=== PATIENT | male | born 1965 | race Caucasian/White ===

== ENCOUNTER 2016-08-25 20:12 | Emergency (ER) | payer MEDICARE ==
[2016-08-25] MEDS ORDERED: SODIUM CHLORIDE 0.9% 1,000 ML IV ONE (21:22)
[2016-08-25] MEDS ORDERED: ONDANSETRON 4 MG/2 ML VIAL IVP STA ×2 (21:22→22:33)
[2016-08-25] MEDS ORDERED: HYDROmorphone 1 MG/ML 1 ML SYRINGE IVP STA (21:22)
--- NOTE | 2016-08-25 21:26 | ED ---
Abdominal Pain HPI - General Chief Complaint: Abdominal Pain Stated Complaint: Abd Pain Time Seen by Provider: 08/25/16 20:40 Source: patient, RN notes reviewed Mode of arrival: ambulatory Limitations: no limitations - History of Present Illness Initial Comments: Patient is a 50-year-old male since emergency room for evaluation of abdominal pain, nausea and vomiting. 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 Patient states that he had a partial colon resection about 2 years ago. Patient states ever since he started having issues with bowel obstructions. Patient states since Monday she began with nausea vomiting and right upper quadrant pain. Patient states the pain is not subsiding. Patient states he can't keep any food down. Patient denies fevers or chills. Patient denies any other abdominal surgeries in the past. Patient denies chest pain, shortness of breath, headache, dizziness, pain or burning during urination, trouble urinating or blood in urine. Patient denies taking any medications. - Related Data Previous Rx's Medication Instructions Recorded HYDROcodone/APAP 5-325MG [Sorento 1 tab PO Q6HR PRN #10 tab 08/26/16 5-325] Ondansetron Odt [Zofran Odt] 4 mg PO Q8HR PRN #12 tab 08/26/16 Allergies Allergy/AdvReac Type Severity Reaction Status Date / Time No Known Allergies Allergy Verified 08/25/16 20:37 Review of Systems ROS Statement: Those systems with pertinent positive or pertinent negative responses have been documented in the HPI. ROS Other: All systems not noted in ROS Statement are negative. Past Medical History Past Medical History: Renal Disease Additional Past Medical History / Comment(s): "TWISTED BOWEL" History of Any Multi-Drug Resistant Organisms: None Reported Past Surgical History: Bowel Resection, Hernia Repair Additional Past Surgical History / Comment(s): Volvulus Past Anesthesia/Blood Transfusion Reactions: No Reported Reaction Past Psychological History: No Psychological Hx Reported Smoking Status: Current every day smoker Past Alcohol Use History: None Reported Past Drug Use History: Marijuana - Past Family History Mother Family Medical History: Hypertension General Exam - General Exam Comments Initial Comments: Laying in exam room, no acute distress. Limitations: no limitations General appearance: alert, in no apparent distress Head exam: Present: atraumatic, normocephalic, normal inspection Eye exam: Present: normal appearance ENT exam: Present: normal exam Neck exam: Present: normal inspection Respiratory exam: Present: normal lung sounds bilaterally. Absent: respiratory distress Cardiovascular Exam: Present: regular rate, normal rhythm, normal heart sounds GI/Abdominal exam: Present: soft, tenderness (Right lower quadrant), normal bowel sounds. Absent: distended, guarding, rebound, rigid Extremities exam: Present: normal inspection Back exam: Present: normal inspection Neurological exam: Present: alert, oriented X3, CN II-XII intact, normal gait Psychiatric exam: Present: normal affect, normal mood Skin exam: Present: warm, dry, intact, normal color. Absent: rash Course Vital Signs 08/25/16 08/25/16 08/26/16 20:26 22:53 00:33 Temperature 98.3 F 98.0 F 98.1 F Pulse Rate 90 76 88 Respiratory 20 18 18 Rate Blood Pressure 121/88 143/76 116/62 O2 Sat by Pulse 99 98 100 Oximetry Medical Decision Making - Medical Decision Making Patient is a 50-year-old male presents to the emergency room for evaluation of abdominal pain, nausea and vomiting. Labs showed no significant findings. Abdomen and pelvis CT shows no concerning findings. No bowel obstructions noted. Patient states he is feeling better after medications given. Agreed to send patient home with medications for pain and medications for nausea. Advised patient to follow-up with his GI specialist or a general surgeon for further evaluation. Patient states he understands everything that was discussed with him. Return parameters discussed. Case discussed with Dr. Lee. - Lab Data Result diagrams: 08/25/16 21:48 08/25/16 21:48 Lab Results 08/25/16 08/25/16 Range/Units 21:48 21:48 WBC 13.0 H (3.8-10.6) k/uL RBC 5.41 (4.30-5.90) m/uL Hgb 17.5 (13.0-17.5) gm/dL Hct 49.6 (39.0-53.0) % MCV 91.6 (80.0-100.0) fL MCH 32.4 (25.0-35.0) pg MCHC 35.3 (31.0-37.0) g/dL RDW 12.3 (11.5-15.5) % Plt Count 245 (150-450) k/uL Neutrophils % 73 % Lymphocytes % 17 % Monocytes % 8 % Eosinophils % 1 % Basophils % 1 % Neutrophils # 9.5 H (1.3-7.7) k/uL Lymphocytes # 2.2 (1.0-4.8) k/uL Monocytes # 1.0 (0-1.0) k/uL Eosinophils # 0.1 (0-0.7) k/uL Basophils # 0.1 (0-0.2) k/uL Sodium 138 (137-145) mmol/L Potassium 3.5 (3.5-5.1) mmol/L Chloride 96 L (98-107) mmol/L Carbon Dioxide 25 (22-30) mmol/L Anion Gap 17 mmol/L BUN 18 (9-20) mg/dL Creatinine 0.70 (0.66-1.25) mg/dL Est GFR (MDRD) Af Amer >60 (>60 ml/min/1.73 sqM) Est GFR (MDRD) Non-Af >60 (>60 ml/min/1.73 sqM) Glucose 116 H (74-99) mg/dL Calcium 9.8 (8.4-10.2) mg/dL Total Bilirubin 1.0 (0.2-1.3) mg/dL AST 21 (17-59) U/L ALT 35 (21-72) U/L Alkaline Phosphatase 62 (38-126) U/L Total Protein 8.1 (6.3-8.2) g/dL Albumin 5.0 (3.5-5.0) g/dL Amylase 70 (30-110) U/L Lipase 46 (23-300) U/L - Radiology Data Radiology results: report reviewed, image reviewed Disposition Clinical Impression: Abdominal pain, Nausea and vomiting Disposition: HOME SELF-CARE Condition: Good Instructions: Abdominal Pain (ED), Acute Nausea and Vomiting (ED) Additional Instructions: Take medications as needed. Please follow up with GI specialist in 24-48 hours. If any new symptom arises, symptoms worsen or fever develops, return to ER as soon as possible. Prescriptions: HYDROcodone/APAP 5-325MG [Sorento 5-325] 1 tab PO Q6HR PRN #10 tab PRN Reason: Pain Ondansetron Odt [Zofran Odt] 4 mg PO Q8HR PRN #12 tab PRN Reason: Nausea Referrals: Scar,Jamal, DO [Primary Care Provider] - 1-2 days Nancy Ingram MD [STAFF PHYSICIAN] - 1-2 days Time of Disposition: 00:18
[2016-08-25 21:58] LABS: Basophils # (A) 0.1 k/uL (0-0.2); Basophils % (A) 1 %; CHCM 36.2; Eosinophils # (A) 0.1 k/uL (0-0.7); Eosinophils % (A) 1 %; HCT 49.6 % (39.0-53.0); HDW 2.43; HGB 17.5 gm/dL (13.0-17.5); Luc # (Auto) 0.18; Luc % (Auto) 1; Lymphocytes # (A) 2.2 k/uL (1.0-4.8); Lymphocytes % (A) 17 %; MCH 32.4 pg (25.0-35.0); MCHC 35.3 g/dL (31.0-37.0); MCV 91.6 fL (80.0-100.0); Mean Platelet Volume 7.3; Monocytes % (A) 8 %; Neutrophils # (A) 9.5 k/uL (1.3-7.7); Neutrophils % (A) 73 %; RBC 5.41 m/uL (4.30-5.90); RDW 12.3 % (11.5-15.5); WBC (Perox) 12.21
[2016-08-25 22:08] LABS: ALT 35 U/L (21-72); AST 21 U/L (17-59); Alkaline Phosphatase 62 U/L (38-126); Amylase 70 U/L (30-110); Anion Gap 17 mmol/L; Blood Urea Nitrogen 18 mg/dL (9-20); Calcium 9.8 mg/dL (8.4-10.2); Carbon Dioxide 25 mmol/L (22-30); Chloride 96 mmol/L (98-107); Glucose 116 mg/dL (74-99); Non-African American GFR(MDRD) >60 (>60 ml/min/1.73 sqM); Potassium 3.5 mmol/L (3.5-5.1); Sodium 138 mmol/L (137-145); Total Protein 8.1 g/dL (6.3-8.2)
--- NOTE | 2016-08-25 22:13 | XR ---
EXAMINATION TYPE: XR KUB DATE OF EXAM: 08/25/2016 9:58 PM COMPARISON: November 28, 2014 HISTORY: Pain and nausea and vomiting TECHNIQUE: 2 upright views FINDINGS: There is mild gaseous distention of the colon, with scattered stool seen within. The bowel gas pattern is within normal limits. No pneumatosis. No pneumoperitoneum. Soft tissues and skeletal structures are negative for acute findings, and the visualized lung bases a nd pleural spaces are negative. IMPRESSION: No acute process.
[2016-08-25 22:54] VITALS: RESP 18
[2016-08-25] MEDS ORDERED: RX INFO: IV CONTRAST WAS GIVEN 1 EACH MISC MISCELLANE PRN (22:54)
--- NOTE | 2016-08-25 23:20 | CT ---
EXAMINATION TYPE: CT abdomen pelvis w con DATE OF EXAM: 08/25/2016 11:13 PM COMPARISON: 04/30/2014 HISTORY: abd pain, vomiting CT DLP: 310.40 mGycm Automated exposure control for dose reduction was used. TECHNIQUE: Helical acquisition of images was performed from the lung bases through the pelvis. CONTRAST: Performed without Oral Contrast and with IV Contrast, patient injected with 100 mL of Omnipaque 300. FINDINGS: Lung bases are clear. There is no pleural effusion. Heart size is normal. Liver spleen pancreas gallb ladder appear normal. Bile ducts are not dilated. There is a 2 cm cyst on the upper pole left kidney. There is no adrenal mass. Kidneys show no hydronephrosis. There is no retroperitoneal adenopathy. Th ere is no ascites. Bladder distends smoothly. I see no intestinal wall thickening. There are no dilat ed loops. Appendix is not seen. There is no sign of appendicitis. Bony structures are intact. There a re spondylotic changes in the lumbar spine. IMPRESSION: LEFT RENAL CORTICAL CYST. NO SIGN OF ACUTE ABDOMEN AND PELVIS. MINIMAL ATHEROSCLEROTIC VASCULAR DISEA SE. NO ADVERSE CHANGE COMPARED TO OLD EXAM.
[2016-08-26] MEDS ORDERED: ONDANSETRON 4 MG/2 ML VIAL IVP STA (00:17)
[2016-08-26 00:35] VITALS: BP 116/62; PULSE 88; TEMP 98.1
== END 2016-08-26 00:34 | disposition home or self-care (01) ==
LOC: EC 20:12
DX: R10.9 Unspecified abdominal pain (principal); R11.2 Nausea with vomiting, unspecified; N28.1 Cyst of kidney, acquired; F17.200 Nicotine dependence, unspecified, uncomplicated
CPT/HCPCS: 99284; 96374; 96376; 96375; 96361; 36415; 80053; 82150; 83690; 85025; 74000; 74177; J2405 ×2; J1170; Q9967

== ENCOUNTER 2016-11-29 19:03 | Emergency (ER) | payer MEDICARE ==
[2016-11-29] MEDS ORDERED: TOBRAMYCIN 0.3% OPHTH DROPS 5 ML BTL LEFT EYE STA (19:18)
[2016-11-29] MEDS ORDERED: HYDROmorphone 1 MG/ML 1 ML SYRINGE IVP STA ×4 (19:19→22:21)
[2016-11-29] MEDS ORDERED: PROPARACAINE 0.5% OPHTH DROPS 15 ML BTL LEFT EYE STA (19:19)
[2016-11-29] MEDS ORDERED: ONDANSETRON 4 MG/2 ML VIAL IVP STA (19:19)
[2016-11-29] MEDS ORDERED: SODIUM CHLORIDE 0.9% 1,000 ML IV ONE (19:20)
[2016-11-29] MEDS ORDERED: PROPARACAINE 0.5% OPHTH DROPS 15 ML BTL ONE (19:20)
[2016-11-29] MEDS: SODIUM CHLORIDE 0.9% 1,000 ML IV SCH ×2 (19:32→20:06)
--- NOTE | 2016-11-29 21:09 | CT ---
EXAMINATION TYPE: CT orbits wo con DATE OF EXAM: 11/29/2016 8:51 PM COMPARISON: NONE HISTORY: LEFT EYE SWELLING AND HEMATOMA AFTER INJURY. CT DLP: 480.8 mGycm Automated exposure control for dose reduction was used. FINDINGS: CT scan of facial bones shows mild to moderate preseptal soft tissue swelling and hematoma on the lef t. Superior extension supraorbital level is present. Some foci of air are noted. The globes are intac t bilaterally. Intraconal fat is maintained bilaterally. Orbital floors and wolf are intact bilatera lly. The zygomatic arches are intact. Visualized portion of mandible is intact. Visualized paranasal sinus es are clear. IMPRESSION: SMALL TO MODERATE SIZE LEFT PRESEPTAL SOFT TISSUE SWELLING AND HEMATOMA. NO POSTSEPTAL HEMATOMA IDENT IFIED. NO ACUTE OSSEOUS FRACTURE OR DISLOCATION SEEN.
[2016-11-29] MEDS ORDERED: TOBRAMYCIN 0.3% OPHTH OINT 3.5 GM TUBE ONE (22:24)
[2016-11-29] MEDS ORDERED: TOBRAMYCIN 0.3% OPHTH OINT 3.5 GM TUBE LEFT EYE STA (22:29)
--- NOTE | 2016-11-29 22:29 | ED ---
Eye Problem HPI - General Chief complaint: Eye Problems Stated complaint: Eye Injury Time Seen by Provider: 11/29/16 19:18 Source: patient Mode of arrival: wheelchair Limitations: no limitations - History of Present Illness Initial comments: This 51-year-old white male presents complaining of a left facial injury. He states that he was utilizing a grinding wheel when the wheel came off and cut himself in the left face. This caused a laceration to his left cheek and his left eyebrow and affected his vision to his left eye. This occurred just prior to arrival. He does complain of significant pain. He states that he can only see the superior vision. His last tetanus was within the last several years but definitely within 5 years. He denies any other injuries or complaints or modifying factors. - Related Data Previous Rx's Medication Instructions Recorded Cephalexin [Keflex] 500 mg PO Q6HR #20 cap 11/29/16 oxyCODONE HCL/ACETAMINOPHEN 1 - 2 tab PO Q6HR PRN #20 tab 11/29/16 [Percocet 5-325 mg] Allergies Allergy/AdvReac Type Severity Reaction Status Date / Time No Known Allergies Allergy Verified 11/29/16 19:45 Review of Systems ROS Statement: Those systems with pertinent positive or pertinent negative responses have been documented in the HPI. ROS Other: All systems not noted in ROS Statement are negative. Past Medical History Past Medical History: Renal Disease Additional Past Medical History / Comment(s): "TWISTED BOWEL" History of Any Multi-Drug Resistant Organisms: None Reported Past Surgical History: Bowel Resection, Hernia Repair Additional Past Surgical History / Comment(s): Volvulus Past Anesthesia/Blood Transfusion Reactions: No Reported Reaction Past Psychological History: No Psychological Hx Reported Smoking Status: Current every day smoker Past Alcohol Use History: None Reported Past Drug Use History: Marijuana - Past Family History Mother Family Medical History: Hypertension General Exam Limitations: no limitations General appearance: alert, in distress Eye exam: Present: PERRL, EOMI, conjunctival injection, periorbital swelling, periorbital tenderness, other (The cornea is clear bilaterally with no evidence of hyphema. There is a large corneal abrasion noted on the left eye which is directly over the pupil in the inferior lateral portion. There is a laceration directly underneath the left I measuring approximately 1 cm. There is a 0.5 cm laceration into the left eyelid. There is no fat protrusion from either area. There is a 1.5 cm laceration present to the left eyebrow. There is a 2 cm laceration into the left cheek. There is a moderate inferolateral subconjunctival hemorrhage noted to the left eye.) Pupils: Present: other (The pupils are equal bilaterally.) ENT exam: Present: other (There is some tenderness noted to the left cheek and periorbital region with some moderate swelling and ecchymosis.) Neurological exam: Present: alert, oriented X3 Psychiatric exam: Present: normal affect, normal mood Course Vital Signs 11/29/16 11/29/16 11/29/16 19:04 21:27 21:49 Temperature 97.0 F L Pulse Rate 80 73 76 Respiratory 16 18 16 Rate Blood Pressure 143/78 198/95 181/86 O2 Sat by Pulse 97 97 96 Oximetry Medical Decision Making - Medical Decision Making The patient was seen and examined. All diagnostics were reviewed. He was complaining of pain and requesting pain medications. He receives 1 mg of Dilaudid. He immediately asked for additional pain medications. He received another 0.5 mg later another 0.5 mg. He continues to request pain medications and later receives another milligram. He does relate that he's had significant bowel issues as well as chronic back pain. He was on morphine as well as Percocet up until approximately 6 months ago and has built up a high tolerance. He does have a computed tomography scan of his orbits. No fractures are identified. There is some where her orbital swelling. There is no wounds deep into the eye. The patient did receive some Alcaine present to his left eye and was evaluated with the Wood's lamp and there does not appear to be any evidence of hyphema. There is associated lacerations as well as a significant corneal abrasion and a slight some conjunctival hemorrhage on the left side. His left face was prepped and draped in usual sterile fashion. His wounds were anesthetized with lidocaine plain. They were explored. Small pebble-like foreign bodies were removed from the cheek and eyebrow wounds. Wounds were thoroughly cleansed once again. The left cheek wound was closed with 7 6-0 nylon sutures in a simple interrupted fashion. The wound just inferior to the left eye was closed with 3 simple interrupted 6-0 nylon sutures. The left eyebrow laceration was closed with 6 simple interrupted 6-0 nylon sutures. The left eyelid laceration was closed with one 6-0 nylon suture. No complications were encountered. He tolerated this well. Tobrex ophthalmic ointment was applied into the eye into the periorbital wounds. Ice was applied to his left face throughout his ER stay. Is felt as though he is stable for discharge but would require close follow-up with the dining room host/hostess. He is agreeable to this plan and leaves in no severe distress once again requesting pain medications for discharge. Disposition Clinical Impression: Complex laceration of face, Left corneal abrasion, Subconjunctival hemorrhage of left eye, Periorbital contusion Disposition: HOME SELF-CARE Condition: Good Additional Instructions: Please follow-up with the eye doctor in the next 1-2 days without fail. Please use the eye ointment to the left eye as well as the wounds around the eye. Prescriptions: Cephalexin [Keflex] 500 mg PO Q6HR #20 cap oxyCODONE HCL/ACETAMINOPHEN [Percocet 5-325 mg] 1 - 2 tab PO Q6HR PRN #20 tab PRN Reason: Pain Referrals: Jamal Abbott DO [Primary Care Provider] - 1-2 days Lois Jensen MD [STAFF PHYSICIAN] - 1-2 days Time of Disposition: 22:35
--- NOTE | 2016-11-29 22:39 | ED ---
Disposition Clinical Impression: Complex laceration of face, Left corneal abrasion, Subconjunctival hemorrhage of left eye, Periorbital contusion Disposition: HOME SELF-CARE Condition: Good Instructions: Corneal Abrasion (ED), Facial Laceration (ED), Subconjunctival Hemorrhage (ED) Additional Instructions: Please follow-up with the eye doctor in the next 1-2 days without fail. Please use the eye ointment to the left eye as well as the wounds around the eye. Please apply ice to year left facial wounds at least every 4 hours. Prescriptions: Cephalexin [Keflex] 500 mg PO Q6HR #20 cap oxyCODONE HCL/ACETAMINOPHEN [Percocet 5-325 mg] 1 - 2 tab PO Q6HR PRN #20 tab PRN Reason: Pain Referrals: Lois Jensen MD [STAFF PHYSICIAN] - 1-2 days Jamal Abbott DO [Primary Care Provider] - 1-2 days
[2016-11-29 23:41] VITALS: BP 160/81; PULSE 70; RESP 18; TEMP 98.6
== END 2016-11-29 23:00 | disposition home or self-care (01) ==
LOC: EC 19:03
DX: S01.112A Laceration without foreign body of left eyelid and periocular area, initial encounter (principal); S01.412A Laceration without foreign body of left cheek and temporomandibular area, initial encounter; H11.32 Conjunctival hemorrhage, left eye; S05.12XA Contusion of eyeball and orbital tissues, left eye, initial encounter; S05.02XA Injury of conjunctiva and corneal abrasion without foreign body, left eye, initial encounter; F17.200 Nicotine dependence, unspecified, uncomplicated; W25.XXXA Contact with sharp glass, initial encounter; Y92.009 Unspecified place in unspecified non-institutional (private) residence as the place of occurrence of the external cause
CPT/HCPCS: 70480; 99283; 12013; 96374; 96375; 96376 ×3; 96361; J2405; J1170

== ENCOUNTER 2017-10-22 15:04 | Inpatient (IN) | payer MEDICARE, MEDICAID ==
--- NOTE | 2017-10-22 15:51 | ED ---
General Adult HPI - General Chief complaint: Psychiatric Symptoms Stated complaint: mental health Time Seen by Provider: 10/22/17 15:08 Source: patient, RN notes reviewed Mode of arrival: ambulatory Limitations: no limitations - History of Present Illness Initial comments: Chief complaint and history of present illness this is a 51-year-old male here for complaint of suicidal thoughts and feeling depressed. For the past 2 months been having difficulties. Including injury to his left eye was surgeries. A car that broke down. Unable to get to [facility] for follow-up. States he is depressed and suicidal thinking about jumping in the river in front of a car. Denies drug use denies alcohol use. Has never been evaluated for psychiatric issues in the past. - Related Data Previous Rx's Medication Instructions Recorded Cephalexin [Keflex] 500 mg PO Q6HR #20 cap 11/29/16 oxyCODONE HCL/ACETAMINOPHEN 1 - 2 tab PO Q6HR PRN #20 tab 11/29/16 [Percocet 5-325 mg] Allergies Allergy/AdvReac Type Severity Reaction Status Date / Time No Known Allergies Allergy Verified 10/22/17 15:07 Review of Systems ROS Statement: Those systems with pertinent positive or pertinent negative responses have been documented in the HPI. Review of systems patient's denying headache he does have visual acuity changes associated with an injury to the left eye. He is undergoing surgeries. He is able to see peripherally with the left eye. No chest pain shortness of breath no abdominal pain nausea vomiting or diarrhea. Emotionally patient reports depressed, suicidal. His plan would be to jump in the river or in front of a car or truck. States he does not want to do that her problems are mounting. All systems reviewed Past medical problem chronic back pain. Denies taking chronic pain medications. Surgeries include colon surgery wrist surgery and left eye secondary to trauma. Family history no cancers. Patient denies ALLERGIES. He does smoke and is encouraged to stop he stopped drinking 25 years ago. ROS Other: All systems not noted in ROS Statement are negative. Past Medical History Past Medical History: Renal Disease Additional Past Medical History / Comment(s): "TWISTED BOWEL" History of Any Multi-Drug Resistant Organisms: None Reported Past Surgical History: Bowel Resection, Hernia Repair Additional Past Surgical History / Comment(s): Volvulus Past Anesthesia/Blood Transfusion Reactions: No Reported Reaction Past Psychological History: Anxiety Smoking Status: Current every day smoker Past Alcohol Use History: None Reported Past Drug Use History: Marijuana - Past Family History Mother Family Medical History: Hypertension General Exam - General Exam Comments Initial Comments: General: The patient is awake and alert, here because he is depressed. Suicidal thoughts and plan to jump in the river to kill himself. Vital signs shows temperature 98.5 pulse 85 respiratory rate 18 pulse ox 99% room air blood pressure 142/72 Eye: Mild anisocoria. The patient had traumatic injury to his left eye within the past several months. He's had 2 surgeries for relocating and replacement of his lens and repair to his retina. He does have peripheral vision. Ears, nose, mouth and throat: There are moist mucous membranes and no oral lesions. Neck: The neck is supple, there is no tenderness Cardiovascular: There is a regular rate and rhythm. No murmur, rub or gallop is appreciated. Respiratory: Lungs are clear to auscultation, respirations are non-labored, breath sounds are equal. No wheezes, stridor, rales, or rhonchi. Gastrointestinal: Soft, non-distended, non-tender abdomen without masses or organomegaly noted. There is no rebound or guarding present. No CVA tenderness. Bowel sounds are unremarkable. Back: There is no tenderness to palpation in the midline. There is no obvious deformity. Chronic back pain Musculoskeletal: Normal ROM, no tenderness, There is no pedal edema. There is no calf tenderness or swelling. Sensation intact. Neurological: CN II-XII intact, There are no obvious motor or sensory deficits. Coordination appears grossly intact. Speech is normal. No neuro deficits Skin: Patient does complain of itchy skin areas worries excoriated himself. Psychiatric: Cooperative, depressed, flat affect, suicidal with plan to jump in the river or jump from a moving vehicle to kill himself. Denies ever overdosing. Limitations: no limitations Course Vital Signs 10/22/17 15:05 Temperature 98.5 F Pulse Rate 85 Respiratory 18 Rate Blood Pressure 142/74 O2 Sat by Pulse 99 Oximetry Medical Decision Making - Medical Decision Making Medical decision making; this is a 51-year-old male with complaint of depression. For the past 2 months getting progressively worse. Suicidal thoughts of jumping in the river or jumping in front of an automobile. Breath alcohol is negative. Lab tests show no evidence of any aspirin or Tylenol in the system. The patient was evaluated by psychiatric nurse she spoke with the psychiatrist and the decision made to admit the patient to [facility]. The patient is voluntarily signing in. With a diagnosis of major depression, suicidal. - Lab Data Lab Results 10/22/17 Range/Units 16:24 Salicylates <1.0 mg/dL Acetaminophen <10.0 ug/mL Disposition Clinical Impression: Major depression, Suicidal ideation Disposition: TRANSFER TO PSYCH HOSP/UNIT Condition: Serious
[2017-10-22 16:55] LABS: Acetaminophen <10.0 ug/mL; Salicylate <1.0 mg/dL
[2017-10-22] MEDS ORDERED: MAG HYDROX/AL HYDROX/SIMETH 30 ML CUP PO PRN (17:27)
[2017-10-22] MEDS ORDERED: MAGNESIUM HYDROXIDE 2,400 MG/10 ML CUP PO PRN (17:27)
[2017-10-22] MEDS ORDERED: ACETAMINOPHEN TAB 325 MG TAB PO PRN (17:27)
[2017-10-22 17:32] LABS: Amphetamine Screen,Urine Not Detected (NotDetected); Barbiturate Screen,Urine Not Detected (NotDetected); Benzodiazepines Screen,Urine Not Detected (NotDetected); Cocaine Screen,Urine Not Detected (NotDetected); Methadone Screen, Urine Not Detected (NotDetected); Opiate Screen,Urine Detected (NotDetected); Oxycodone Screen, Urine Not Detected (NotDetected); Phencyclidine Screen,Urine Not Detected (NotDetected); Tricyclic Antidepressant,Urine Not Detected (NotDetected); Urn Cannabinoid Scrn Detected (NotDetected)
[2017-10-22 17:53] VITALS: RESP 16
[2017-10-22] MEDS: NICOTINE 21MG/24HR PATCH TRANSDERM SCH (18:10)
[2017-10-22] MEDS: traMADol 50 MG TAB PO PRN (18:59)
[2017-10-22] MEDS: LORazepam 0.5 MG TAB PO PRN (18:59)
[2017-10-22] MEDS ORDERED: traZODone HCL 50 MG TAB PO STA ×2 (19:02→20:14)
[2017-10-22] MEDS ORDERED: hydrOXYzine PAMOATE 25 MG CAP PO STA (22:55)
[2017-10-23] MEDS: NICOTINE 21MG/24HR PATCH TRANSDERM SCH (09:07)
[2017-10-23] MEDS: traMADol 50 MG TAB PO PRN ×2 (09:08→20:26)
[2017-10-23] MEDS: LORazepam 0.5 MG TAB PO PRN ×2 (09:08→23:08)
[2017-10-23] MEDS: GABAPENTIN 100 MG CAP PO SCH ×3 (09:22→21:22)
[2017-10-23] MEDS: ESCITALOPRAM 10 MG TAB PO SCH (09:22)
[2017-10-23 11:31] LABS: Basophils % (A) 0 %; Eosinophils # (A) 0.1 k/uL (0-0.7); Eosinophils % (A) 2 %; HCT 46.1 % (39.0-53.0); HGB 15.6 gm/dL (13.0-17.5); Lymphocytes # (A) 2.1 k/uL (1.0-4.8); Lymphocytes % (A) 33 %; MCH 31.1 pg (25.0-35.0); MCHC 33.9 g/dL (31.0-37.0); MCV 91.8 fL (80.0-100.0); Monocytes # (A) 0.4 k/uL (0-1.0); Monocytes % (A) 6 %; Neutrophils # (A) 3.7 k/uL (1.3-7.7); Neutrophils % (A) 57 %; Platelet Count 219 k/uL (150-450); RBC 5.02 m/uL (4.30-5.90); RDW 13.1 % (11.5-15.5); WBC 6.4 k/uL (3.8-10.6)
[2017-10-23 11:49] LABS: ALT 27 U/L (21-72); AST 19 U/L (17-59); Albumin 4.1 g/dL (3.5-5.0); Alkaline Phosphatase 70 U/L (38-126); Anion Gap 11 mmol/L; Blood Urea Nitrogen 12 mg/dL (9-20); Calcium 9.2 mg/dL (8.4-10.2); Carbon Dioxide 24 mmol/L (22-30); Chloride 105 mmol/L (98-107); Glucose 92 mg/dL (74-99); Potassium 4.1 mmol/L (3.5-5.1); Sodium 140 mmol/L (137-145); Total Bilirubin 0.4 mg/dL (0.2-1.3); Total Protein 6.8 g/dL (6.3-8.2)
--- NOTE | 2017-10-23 12:46 | P.HP ---
Psychiatric H&P - . H&P Date: 10/23/17 History & Physical: Allergies Allergy/AdvReac Type Severity Reaction Status Date / Time No Known Allergies Allergy Verified 10/22/17 17:46 Vital Signs Temp 98.2 F 10/23/17 01:09 Pulse 66 10/23/17 01:09 Resp 16 10/23/17 01:09 BP 128/74 10/23/17 01:09 Pulse Ox 98 10/22/17 17:51 Intake & Output 10/22/17 10/23/17 10/23/17 18:59 06:59 18:59 Weight 58.513 kg Laboratory Last Values WBC 6.4 k/uL (3.8-10.6) 10/23/17 11:06 RBC 5.02 m/uL (4.30-5.90) 10/23/17 11:06 Hgb 15.6 gm/dL (13.0-17.5) 10/23/17 11:06 Hct 46.1 % (39.0-53.0) 10/23/17 11:06 MCV 91.8 fL (80.0-100.0) 10/23/17 11:06 MCH 31.1 pg (25.0-35.0) 10/23/17 11:06 MCHC 33.9 g/dL (31.0-37.0) 10/23/17 11:06 RDW 13.1 % (11.5-15.5) 10/23/17 11:06 Plt Count 219 k/uL (150-450) 10/23/17 11:06 Neutrophils % 57 % 10/23/17 11:06 Lymphocytes % 33 % 10/23/17 11:06 Monocytes % 6 % 10/23/17 11:06 Eosinophils % 2 % 10/23/17 11:06 Basophils % 0 % 10/23/17 11:06 Neutrophils # 3.7 k/uL (1.3-7.7) 10/23/17 11:06 Lymphocytes # 2.1 k/uL (1.0-4.8) 10/23/17 11:06 Monocytes # 0.4 k/uL (0-1.0) 10/23/17 11:06 Eosinophils # 0.1 k/uL (0-0.7) 10/23/17 11:06 Basophils # 0.0 k/uL (0-0.2) 10/23/17 11:06 Salicylates <1.0 mg/dL 10/22/17 16:24 Urine Opiates Screen Detected (NotDetected) H 10/22/17 17:11 Ur Oxycodone Screen Not Detected (NotDetected) 10/22/17 17:11 Urine Methadone Screen Not Detected (NotDetected) 10/22/17 17:11 Ur Propoxyphene Screen Not Detected (NotDetected) 10/22/17 17:11 Acetaminophen <10.0 ug/mL 10/22/17 16:24 Ur Barbiturates Screen Not Detected (NotDetected) 10/22/17 17:11 U Tricyclic Antidepress Not Detected (NotDetected) 10/22/17 17:11 Ur Phencyclidine Scrn Not Detected (NotDetected) 10/22/17 17:11 Ur Amphetamines Screen Not Detected (NotDetected) 10/22/17 17:11 U Methamphetamines Scrn Detected (NotDetected) H 10/22/17 17:11 U Benzodiazepines Scrn Not Detected (NotDetected) 10/22/17 17:11 Urine Cocaine Screen Not Detected (NotDetected) 10/22/17 17:11 U Marijuana (THC) Screen Detected (NotDetected) H 10/22/17 17:11 10/23/17 12:15 Identification: Patient is a 51-year-old male who presented to the emergency room with suicidal ideation, states he had no plan was feeling tired and fed up. History of Present Illness: Patient states that things began to go badly for him beginning last year when he lost his house, and then was in an accident where he was using a grinding wheel which came loose and hit him in the left face. The blade was thin when he states he was wearing safety glasses his reading glasses and he had the safety guard on the machine he states that it cut him above his eye across as I am below his eye. Patient since that time has been seen at [facility] in [place]. He states in December of last year after the accident he was seen there initially to remove blood from his eye however when they did the surgery they discovered that his retina had detached and his lens a dislocated and was forced into his eye. At that time they reattached his retina placed gel. In June 2017 he went to have the gel removed as well as the lens removed. In September of this year he had the lens replaced. He states that he has constant throbbing stabbing pain and sore over his eye. He states the light bothers that and his vision is wavy and he has vision only on the left side of that visual field of his left eye the right side is dark. Patient states that the pain has been constant, he states that he was not instructed to wear a patch. Patient states that he also had car difficulty and had difficulty getting to his appointments in [place] he states that his son took his car on 2 occasions one broke down in [place] and he had to go down there and repair it and the last time it broke down in [place]. Patient states he had difficulty finding the car after he walked to [place] and eventually discovered that it been towed by the [facility] police. Patient states that since he lost his house he is living with his daughter and states he feels like he is a burden to everyone because he needs to ask for assistance driving to his appointments, has no place to live. He states that his sleep has been poor over the last year and was given Ativan by his primary care physician with little relief. He states that he has been using tramadol for the pain because he was using opiate pain medication in years past for his back pain. He states that he takes the tramadol on an as-needed basis. Patient states that he is feeling depressed, like a burden to others that he is unable to read or watch television and just sits during the day. He describes himself as having been a very active person in the past and is having great difficulty. States he has not been sleeping feels exhausted and tired and his back pain and eye pain keep him awake as well. He states that he had suicidal thoughts but made no plan. Patient is supported on Social Security disability secondary to his back and bowel surgery for a sigmoid volvulus. The patient states he has never had any suicide attempts in the past, has never felt this way and does not endorse any manic symptoms, psychotic symptoms. He describes feeling anxious and pacing most of the time at home, states that he has never felt this way as well. Past Psychiatric History: patient denies any prior inpatient or outpatient psychiatric care. He denies any prior suicide attempts. Past Medical/Surgical History: patient has chronic back pain he states he has several herniated disks, he is status post bowel resection for sigmoid volvulus states he has episodes where he becomes constipated and was in the past coming to the hospital during these periods of time. He states that he is status post hernia repair, status post repair for testicle torsion, status post left wrist fracture and his injury to his left face and eye. Family History: patient is unaware of any family history of psychiatric disorders, alcohol or drug use disorders and no completed suicides. Social History: patient states he was born and raised in [place] to parents who are both as he and his twin sister were the youngest in the family. He has 3 half-sisters who are both as well as 3 siblings who are his only surviving sibling is his twin sister. 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 He last worked in 2014 and stopped because of his back. 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 Patient is but they have been since 2002 when she left and left the kids with the patient. He has 2 children a daughter and a son states that he raised the children. He has one son from a prior relationship who is 26 years of age and he has no contact with. Patient states that he lost his house and is currently living with his daughter. Patient states that he spends most of his day just sitting around as he is unable to read or watch television and states that he is not used to this is he was a much more active person. Patient denies any abuse history. Substance Use History: Patient states that he used alcohol when he was younger on the weekends he has not had any alcohol in 24 years. Patient uses marijuana every 2 months or so and denies any other drug use or IV drug use. Patient does use tobacco products. Legal History: He states he was in correction once for back child support for his son Mental status: Appearance/Attitude: Patient is dressed in a hospital gown, either has his hand or keeps his left eye shut stating the light bothers it. Patient is cooperative Behavior: Patient does not exhibit any psychomotor agitation or retardation. Speech/Language: Patient's speech is spontaneous and normal volume and rhythm and he is coherent. Thought Process: Patient is goal-directed there is no evidence of loose association or flight of ideas. Thought Content: Patient denies auditory or visual hallucinations, no delusions or paranoid ideation were elicited. Patient states he feels like a burden to his daughter and others because he needs to be driven to appointments and has no place of his own to live. Patient states that he is having pain from his eye and his back, states he has not been sleeping and is up pacing because he is anxious. Patient states his appetite is fair. Patient feels hopeless, and tired with little motivation. Suicidal/Homicidal Ideation: Patient reports no current suicidal ideation but he did have suicidal thoughts yesterday with no plan and denies any current homicidal ideation. Sensorium/Cognition: Patient is alert and oriented to person, place, and time and his recent and remote memory are grossly intact. Mood/Affect: Patient's mood is depressed and his affect is blunted Insight/Judgment: Patient's insight and judgment are fair Intellectual Functioning: Patient's intellectual functioning appears average Strength/Weakness: Patient has financial support, housing/minimal support group Assessment: Patient presented to the emergency room with suicidal ideation without a plan. Patient states he's been not sleeping well as he is coping with the eye injury that occurred last November which is required several surgeries and several more plan. Patient states he has constant throbbing pain as well as back pain. Patient states that he feels a burden to his family as he lost his house last October and has been living with his daughter. He states he is on Social Security disability but has limited means of transportation as well as due to his eye injury he is unable to drive. 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 Patient states that he's anxious and is exhausted as well as feeling depressed and hopeless. Patient does not endorse any history of prior suicide attempts or prior psychiatric treatment and does not endorse any manic symptoms or psychotic symptoms. Patient expresses concern about using opiate pain medication because he feels he was addicted to them when he was taking them in the past for his back pain and states that he is trying to avoid any type of addictive medication. Admission Diagnosis: Major depressive episode, moderate severity Plan: Patient was admitted on a voluntary basis, placed on routine precautions and group and activity therapy were ordered. Routine laboratory studies as well as a medical consultation were requested. Patient was continued on his tramadol 50 mg twice a day for pain on an as-needed basis. Patient and I discussed his symptoms of depression as well as the treatment recommendations. I also discussed with the patient a trial of gabapentin to see if this would assist with some of his nerve pain from his back as well as his anxiety and he was agreeable to a trial of this and will begin 100 mg 3 times a day, due to his lack of sleep we discussed the use and side effects of trazodone 50 mg at bedtime and Lexapro 10 mg in the morning to target his symptoms of depression. Patient and I reviewed the use of the medications and their side effects. Patient was encouraged to attend groups and activities.
[2017-10-23 15:26] LABS: Appearance,Urine Clear (Clear); Bilirubin,Urine Negative (Negative); Blood,Urine Negative (Negative); Color,Urine Yellow; Glucose,Urine (UA) Negative (Negative); Ketones,Urine Negative (Negative); Leukocyte Esterase,Urine Negative (Negative); Nitrite,Urine Negative (Negative); Protein,Urine Trace (Negative)
--- NOTE | 2017-10-23 18:20 | P.CONS ---
History of Present Illness - Reason for Consult Medical clearance - History of Present Illness Patient is a 51-year-old man admitted for suicidal ideation and patient is quite depressed patient denied any complaints at this point of time patient is able to provide good history to me patient had any fever chills nausea vomiting abdominal pain patient can use to smoke tried to quit multiple times counseling regarding this was provided. No other major medical issues at this time. Review of Systems REVIEW OF SYSTEMS: CONSTITUTIONAL: No fever, no malaise, no fatigue. HEENT: No recent visual problems or hearing problems. Denied any sore throat. CARDIOVASCULAR: No chest pain, orthopnea, PND, no palpitations, no syncope. PULMONARY: No shortness of breath, no cough, no hemoptysis. GASTROINTESTINAL: No diarrhea, no nausea, no vomiting, no abdominal pain. Normoactive bowel sounds. NEUROLOGICAL: No headaches, no weakness, no numbness. HEMATOLOGICAL: Denies any bleeding or petechiae. GENITOURINARY: Denies any burning micturition, frequency, or urgency. MUSCULOSKELETAL/RHEUMATOLOGICAL: Denies any joint pain, swelling, or any muscle pain. ENDOCRINE: Denies any polyuria or polydipsia. The rest of the 14-point review of systems is negative. Past Medical History Past Medical History: Renal Disease Additional Past Medical History / Comment(s): Diagnosed with "twisted bowel" in 2011, bowel resection 07/19/2012, history of acute renal failure related to dehydration, History of Any Multi-Drug Resistant Organisms: None Reported Past Surgical History: Bowel Resection, Hernia Repair Additional Past Surgical History / Comment(s): Volvulus, Last eye surgery 2017 lens repair, 12/2016 retinal reattachment surgery. Past Anesthesia/Blood Transfusion Reactions: No Reported Reaction Past Psychological History: Anxiety Smoking Status: Current every day smoker Past Alcohol Use History: Rare Past Drug Use History: Marijuana Additional Drug Use History / Comment(s): Pt. denies drug use. (UDS + for Opiates, THC, and Methamphetamines) - Past Family History Father Family Medical History: CVA/TIA Additional Family Medical History / Comment(s): Patient's father at the age of 8080 years old from "organ failure." Mother Family Medical History: Diabetes Mellitus, Hypertension Additional Family Medical History / Comment(s): Patient's mother passedy away "of old age" per patient. Medications and Allergies Home Medications Medication Instructions Recorded Confirmed Type LORazepam [Ativan] 0.5 mg PO HS 10/22/17 10/22/17 History tiZANidine [Zanaflex] 4 mg PO TID PRN 10/22/17 10/22/17 History Allergies Allergy/AdvReac Type Severity Reaction Status Date / Time No Known Allergies Allergy Verified 10/22/17 17:46 Physical Exam Vitals: Vital Signs Temp Pulse Resp BP 10/23/17 01:09 98.2 F 66 16 128/74 10/22/17 22:59 82 121/74 PHYSICAL EXAMINATION: GENERAL: The patient is alert and oriented x3, not in any acute distress. Well developed, well nourished. HEENT: Pupils are round and equally reacting to light. EOMI. No scleral icterus. No conjunctival pallor. Normocephalic, atraumatic. No pharyngeal erythema. No thyromegaly. CARDIOVASCULAR: S1 and S2 present. No murmurs, rubs, or gallops. PULMONARY: Chest is clear to auscultation, no wheezing or crackles. ABDOMEN: Soft, nontender, nondistended, normoactive bowel sounds. No palpable organomegaly. MUSCULOSKELETAL: No joint swelling or deformity. EXTREMITIES: No cyanosis, clubbing, or pedal edema. NEUROLOGICAL: Gross neurological examination did not reveal any focal deficits. SKIN: No rashes. Results CBC & Chem 7: 10/23/17 11:06 10/23/17 11:06 Labs: Abnormal Lab Results - Last 24 Hours (Table) 10/23/17 10/23/17 Range/Units 11:06 15:03 TSH 0.230 L (0.465-4.680) mIU/L Urine Protein Trace H (Negative) Assessment and Plan Plan: -Knee coronary abuse and marijuana use: Counseling was provided -Depression suicidal ideation management as per primary service No further recommendations from his perspective sign off at this point of time
[2017-10-23] MEDS ORDERED: traZODone HCL 50 MG TAB PO SCH (21:00)
[2017-10-24] MEDS: NICOTINE 21MG/24HR PATCH TRANSDERM SCH (08:39)
[2017-10-24] MEDS: ESCITALOPRAM 10 MG TAB PO SCH (08:39)
[2017-10-24] MEDS: GABAPENTIN 100 MG CAP PO SCH ×3 (08:39→21:44)
[2017-10-24] MEDS: traMADol 50 MG TAB PO PRN ×2 (08:41→19:43)
[2017-10-24 09:13] VITALS: BMI 19.5
--- NOTE | 2017-10-24 12:33 | P.PN ---
Progress Note - Text Progress Note Date: 10/24/17 Interval History: Patient is a 51-year-old male who is being seen today and he reports that he continues to have difficulty falling asleep but he did sleep for 4 hours last night. Patient states that his pain from his back is the same , the eye pain remains the same as well. Patient states that he is not feeling suicidal currently. He reports he has not been attending groups or activities. Patient reported not feeling as anxious as he was on admission. Mental Status: Appearance/Attitude: Patient is dressed in a hospital gown, makes good eye contact continues to at times cover his left eye and is cooperative Behavior: Patient does not display any psychomotor agitation or retardation. Speech/Language: Patient's speech is spontaneous and normal volume and rhythm and he is coherent. Thought Process: Patient is goal-directed there is no evidence of loose association or flight of ideas. Thought Content: Patient denies auditory or visual hallucinations no delusions or paranoid ideation or elicited. Patient continues to report pain from his back and his eye. He states that he continues to feel frustrated with his inability to return to his prior activities since his eye injury last November. He continues to feel a burden to his family. Patient states his sleep is still disruptive but he slept about 4 hours last night. His appetite is improving. Suicidal/Homicidal Ideation: Patient denies any current suicidal or homicidal ideation. Sensorium/Cognition: Patient is alert and oriented to person, place, and time and his recent and remote memory are grossly intact. Mood/Affect: Patient's mood remains depressed and his affect is appropriate Insight/Judgment: Patient's insight and judgment are fair. Assessment: Patient reports continued disruptive sleep, no decrease in the level of pain in his back or his eye. Patient states he still feels like he is a burden to his family, frustrated with his inability to perform activities that he used to do prior to his injury to his eye and November 2016. Patient states he is able to do very little and he finds this depressing. Patient denies any current suicidal ideation. Patient has not been attending groups or activities. Plan: Patient and I discussed continuing the Lexapro 10 mg daily, we'll increase his gabapentin to 200 3 times a day and I discussed with him a slow increase in this to try to target his nerve pain. Patient and I also discussed increasing the trazodone to 75 mg at bedtime to target his sleep. Patient's free T4 was obtained and it was within normal limits. Patient continues to require hospitalization to further stabilize his mood.
[2017-10-24] MEDS: LORazepam 0.5 MG TAB PO PRN (19:45)
[2017-10-24] MEDS: traZODone HCL 50 MG TAB PO SCH (21:44)
[2017-10-25] MEDS: NICOTINE 21MG/24HR PATCH TRANSDERM SCH (08:40)
[2017-10-25] MEDS: ESCITALOPRAM 10 MG TAB PO SCH (08:40)
[2017-10-25] MEDS: GABAPENTIN 100 MG CAP PO SCH (08:40)
[2017-10-25] MEDS: traMADol 50 MG TAB PO PRN ×2 (08:42→19:48)
--- NOTE | 2017-10-25 14:02 | P.PN ---
Progress Note - Text Progress Note Date: 10/25/17 Interval History: Patient is a 51-year-old male who reports that he slept well last evening, and that his pain has been decreased somewhat by the gabapentin. He reports that he is no longer feeling as hopeless as he was on admission. States he is no longer having any suicidal ideation. Patient reports that he is not having any side effects of the medication and the gabapentin has not made him feel sleepy or groggy during the day. Mental Status: Appearance/Attitude: Patient is dressed in a hospital gown, makes good eye contact and is cooperative. Behavior: Patient does not exhibit any psychomotor agitation or retardation. Speech/Language: Patient's speech is spontaneous of normal volume and rhythm and he is coherent. Thought Process: Patient is goal-directed there is no evidence of loose associations or flight of ideas. Thought Content: Patient denies any auditory or visual hallucinations and no delusions or paranoid ideation were elicited. Patient states he is not feeling as hopeless as he was on admission, he states that he slept 6 hours last night and feels much less anxious. He states the gabapentin has decreased his neuropathic pain somewhat. Patient states that he is not feeling irritable or angry. Patient states that his appetite is good Suicidal/Homicidal Ideation: Patient denies any current suicidal or homicidal ideation Sensorium/Cognition: Patient is alert and oriented to person, place, and time and his recent and remote memory are grossly intact. Mood/Affect: Patient's mood is less depressed and his affect is brighter Insight/Judgment: Patient's insight and judgment are intact Assessment: patient reports that his sleep last evening was good, sleeping for at least 6 hours. He states that he is feeling much better this morning, and states that the gabapentin has decreased his neuropathic pain somewhat. He states he is having any side effects from the medication. He reports no longer feeling as hopeless or as angry as he was on admission. He denies any current suicidal ideation. Plan: patient will continue on Lexapro 10 mg to target his depression and does a real 75 mg at bedtime to target his sleep. We will increase patient's gabapentin to 300 mg 3 times a day to target his neuropathic pain. Patient and I discussed possible discharge tomorrow when he was agreeable with this should his sleep continued to be good.
[2017-10-25] MEDS: GABAPENTIN 300 MG CAP PO SCH ×2 (15:08→21:29)
[2017-10-25] MEDS: LORazepam 0.5 MG TAB PO PRN (19:08)
[2017-10-25] MEDS: traZODone HCL 50 MG TAB PO SCH (21:29)
[2017-10-26 07:06] VITALS: BP 101/61; PULSE 57; TEMP 97.8
[2017-10-26] MEDS: NICOTINE 21MG/24HR PATCH TRANSDERM SCH (08:09)
[2017-10-26] MEDS: GABAPENTIN 300 MG CAP PO SCH (08:10)
[2017-10-26] MEDS: ESCITALOPRAM 10 MG TAB PO SCH (08:10)
[2017-10-26] MEDS: traMADol 50 MG TAB PO PRN (08:10)
--- NOTE | 2017-10-26 09:43 | P.DS ---
Providers Date of admission: 10/22/17 17:13 Expected date of discharge: 10/26/17 Attending physician: Saida Perkins MD Consults: 10/22/17 17:27 Consult Physician Routine Consulting Provider: Sharon Waters Consult Reason/Comments: Medical Management Do you want consulting provider notified?: Yes Primary care physician: Ashley Bolivar [facility] Course: Discharge Diagnosis: Major depressive disorder, single episode, moderate severity Reason for Admission: Patient is a 51-year-old male who presented to the emergency room with suicidal ideation, states he had no plan was feeling tired and fed up. Patient states that things began to go badly for him beginning last year when he lost his house, and then was in an accident where he was using a grinding wheel which came loose and hit him in the left face. The blade was thin when he states he was wearing safety glasses his reading glasses and he had the safety guard on the machine he states that it cut him above his eye across as I am below his eye. Patient since that time has been seen at [facility] [place] in [place]. He states in December of last year after the accident he was seen there initially to remove blood from his eye however when they did the surgery they discovered that his retina had detached and his lens a dislocated and was forced into his eye. At that time they reattached his retina placed gel. In June 2017 he went to have the gel removed as well as the lens removed. In September of this year he had the lens replaced. He states that he has constant throbbing stabbing pain and sore over his eye. He states the light bothers that and his vision is wavy and he has vision only on the left side of that visual field of his left eye the right side is dark. Patient states that the pain has been constant, he states that he was not instructed to wear a patch. Patient states that he also had car difficulty and had difficulty getting to his appointments in [place] he states that his son took his car on 2 occasions one broke down in [place] and he had to go down there and repair it and the last time it broke down in [place]. Patient states he had difficulty finding the car after he walked to [place] and eventually discovered that it been towed by the [facility] police. Patient states that since he lost his house he is living with his daughter and states he feels like he is a burden to everyone because he needs to ask for assistance driving to his appointments, has no place to live. He states that his sleep has been poor over the last year and was given Ativan by his primary care physician with little relief. He states that he has been using tramadol for the pain because he was using opiate pain medication in years past for his back pain. He states that he takes the tramadol on an as-needed basis. Patient states that he is feeling depressed, like a burden to others that he is unable to read or watch television and just sits during the day. He describes himself as having been a very active person in the past and is having great difficulty. States he has not been sleeping feels exhausted and tired and his back pain and eye pain keep him awake as well. He states that he had suicidal thoughts but made no plan. Patient is supported on Social Security disability secondary to his back and bowel surgery for a sigmoid volvulus. The patient states he has never had any suicide attempts in the past, has never felt this way and does not endorse any manic symptoms, psychotic symptoms. He describes feeling anxious and pacing most of the time at home, states that he has never felt this way as well. Mental status on Admission: Appearance/Attitude: Patient is dressed in a hospital gown, either has his hand or keeps his left eye shut stating the light bothers it. Patient is cooperative Behavior: Patient does not exhibit any psychomotor agitation or retardation. Speech/Language: Patient's speech is spontaneous and normal volume and rhythm and he is coherent. Thought Process: Patient is goal-directed there is no evidence of loose association or flight of ideas. Thought Content: Patient denies auditory or visual hallucinations, no delusions or paranoid ideation were elicited. Patient states he feels like a burden to his daughter and others because he needs to be driven to appointments and has no place of his own to live. Patient states that he is having pain from his eye and his back, states he has not been sleeping and is up pacing because he is anxious. Patient states his appetite is fair. Patient feels hopeless, and tired with little motivation. Suicidal/Homicidal Ideation: Patient reports no current suicidal ideation but he did have suicidal thoughts yesterday with no plan and denies any current homicidal ideation. Sensorium/Cognition: Patient is alert and oriented to person, place, and time and his recent and remote memory are grossly intact. Mood/Affect: Patient's mood is depressed and his affect is blunted Insight/Judgment: Patient's insight and judgment are fair Hospital Course: Patient was admitted on a voluntary basis, routine observation in group and activity therapy were ordered. Routine laboratory studies and a medical consultation was also obtained. Patient was placed on Lexapro at 10 mg a day to target his depressive symptoms and trazodone was titrated up to a dose of 75 mg at bedtime to target his sleep. Patient was continued on his tramadol for pain. Patient was also started on gabapentin for his neuropathic pain titrated to a dose of 300 mg 3 times a day. Patient was attending groups and activities and stated that his sleep improved to the point where he was sleeping at least 6-7 hours a night. He reported feeling rested in the morning and was no longer verbalizing suicidal thoughts. Patient stated he felt less hopeless and was more positive about the future. He reported that the increasing gabapentin had decreased some of the numbness and tingling down his right leg as well as partially in his left leg. Patient reported that he was feeling less depressed, no further suicidal ideation and ready to return home. Patient was encouraged to follow-up with his primary care physician regarding continuing to titrate his gabapentin to continue to treat his neuropathic pain. Patient was also encouraged to speak with his primary care physician regarding tramadol usage and the possibility of trying an states for his back pain. Patient was also encouraged to follow up with his appointments with his physicians at the [facility] [place]. Allergies No Known Allergies Allergy (Verified 10/22/17 17:46) Laboratory Last Values WBC 6.4 k/uL (3.8-10.6) 10/23/17 11:06 RBC 5.02 m/uL (4.30-5.90) 10/23/17 11:06 Hgb 15.6 gm/dL (13.0-17.5) 10/23/17 11:06 Hct 46.1 % (39.0-53.0) 10/23/17 11:06 MCV 91.8 fL (80.0-100.0) 10/23/17 11:06 MCH 31.1 pg (25.0-35.0) 10/23/17 11:06 MCHC 33.9 g/dL (31.0-37.0) 10/23/17 11:06 RDW 13.1 % (11.5-15.5) 10/23/17 11:06 Plt Count 219 k/uL (150-450) 10/23/17 11:06 Neutrophils % 57 % 10/23/17 11:06 Lymphocytes % 33 % 10/23/17 11:06 Monocytes % 6 % 10/23/17 11:06 Eosinophils % 2 % 10/23/17 11:06 Basophils % 0 % 10/23/17 11:06 Neutrophils # 3.7 k/uL (1.3-7.7) 10/23/17 11:06 Lymphocytes # 2.1 k/uL (1.0-4.8) 10/23/17 11:06 Monocytes # 0.4 k/uL (0-1.0) 10/23/17 11:06 Eosinophils # 0.1 k/uL (0-0.7) 10/23/17 11:06 Basophils # 0.0 k/uL (0-0.2) 10/23/17 11:06 Sodium 140 mmol/L (137-145) 10/23/17 11:06 Potassium 4.1 mmol/L (3.5-5.1) 10/23/17 11:06 Chloride 105 mmol/L (98-107) 10/23/17 11:06 Carbon Dioxide 24 mmol/L (22-30) 10/23/17 11:06 Anion Gap 11 mmol/L 10/23/17 11:06 BUN 12 mg/dL (9-20) 10/23/17 11:06 Creatinine 0.89 mg/dL (0.66-1.25) 10/23/17 11:06 Est GFR (CKD-EPI)AfAm >90 (>60 ml/min/1.73 sqM) 10/23/17 11:06 Est GFR (CKD-EPI)NonAf >90 (>60 ml/min/1.73 sqM) 10/23/17 11:06 Glucose 92 mg/dL (74-99) 10/23/17 11:06 Calcium 9.2 mg/dL (8.4-10.2) 10/23/17 11:06 Total Bilirubin 0.4 mg/dL (0.2-1.3) 10/23/17 11:06 AST 19 U/L (17-59) 10/23/17 11:06 ALT 27 U/L (21-72) 10/23/17 11:06 Alkaline Phosphatase 70 U/L (38-126) 10/23/17 11:06 Total Protein 6.8 g/dL (6.3-8.2) 10/23/17 11:06 Albumin 4.1 g/dL (3.5-5.0) 10/23/17 11:06 TSH 0.230 mIU/L (0.465-4.680) L 10/23/17 11:06 Free T4 1.17 ng/dL (0.78-2.19) 10/23/17 11:06 Urine Color Yellow 10/23/17 15:03 Urine Appearance Clear (Clear) 10/23/17 15:03 Urine pH 6.0 (5.0-8.0) 10/23/17 15:03 Ur Specific [place] 1.020 (1.001-1.035) 10/23/17 15:03 Urine Protein Trace (Negative) H 10/23/17 15:03 Urine Glucose (UA) Negative (Negative) 10/23/17 15:03 Urine Ketones Negative (Negative) 10/23/17 15:03 Urine Blood Negative (Negative) 10/23/17 15:03 Urine Nitrite Negative (Negative) 10/23/17 15:03 Urine Bilirubin Negative (Negative) 10/23/17 15:03 Urine Urobilinogen 2.0 mg/dL (<2.0) 10/23/17 15:03 Ur Leukocyte Esterase Negative (Negative) 10/23/17 15:03 Salicylates <1.0 mg/dL 10/22/17 16:24 Urine Opiates Screen Detected (NotDetected) H 10/22/17 17:11 Ur Oxycodone Screen Not Detected (NotDetected) 10/22/17 17:11 Urine Methadone Screen Not Detected (NotDetected) 10/22/17 17:11 Ur Propoxyphene Screen Not Detected (NotDetected) 10/22/17 17:11 Acetaminophen <10.0 ug/mL 10/22/17 16:24 Ur Barbiturates Screen Not Detected (NotDetected) 10/22/17 17:11 U Tricyclic Antidepress Not Detected (NotDetected) 10/22/17 17:11 Ur Phencyclidine Scrn Not Detected (NotDetected) 10/22/17 17:11 Ur Amphetamines Screen Not Detected (NotDetected) 10/22/17 17:11 U Methamphetamines Scrn Detected (NotDetected) H 10/22/17 17:11 U Benzodiazepines Scrn Not Detected (NotDetected) 10/22/17 17:11 Urine Cocaine Screen Not Detected (NotDetected) 10/22/17 17:11 U Marijuana (THC) Screen Detected (NotDetected) H 10/22/17 17:11 Discharge Mental Status: Appearance/Attitude: Patient is casually dressed, makes good eye contact and only intermittently covers his left eye with his hand and is cooperative. Behavior: Patient does not exhibit any psychomotor agitation or retardation. Speech/Language: Patient is spontaneous and normal volume and rhythm and he is coherent. Thought Process: Patient is goal-directed there is no evidence of loose association or flight of ideas Thought Content: Patient denies any auditory or visual hallucinations no delusions or paranoid ideation or elicited. Patient reports he is sleeping and feeling rested in the morning and his appetite is good. Patient states that his pain has been decreased in his right leg and left leg with the use of gabapentin. Patient continues to report stabbing back pain. Suicidal/Homicidal Ideation: Patient denies any current suicidal or homicidal ideation Sensorium/Cognition: Patient is alert and oriented to person, place, and time and his recent and remote memory are grossly intact. Mood/Affect: Patient's mood is more upbeat and his affect is brighter Insight/Judgment: Patient's insight and judgment are intact Risk Assessment: Patient's risk for self harm is low Discharge Plan: Patient will return home, will follow-up at [facility] and continue on Lexapro 10 mg in the morning and trazodone 75 mg at bedtime. Patient will also be given a prescription for gabapentin 300 mg 3 times a day. Patient will continue on tramadol and discussed with his PCP regarding future prescriptions. Patient and I discussed speaking with his primary care physician about titrating the dose of gabapentin further to treat his neuropathic pain. Patient was encouraged to avoid any alcohol or drugs. Patient Condition at Discharge: Stable Plan - Discharge Summary New Discharge Prescriptions: New Escitalopram [Lexapro] 10 mg PO DAILY #14 tab Gabapentin [Neurontin] 300 mg PO TID #84 cap traZODone HCL [Desyrel] 75 mg PO HS #21 tab Continue tiZANidine [Zanaflex] 4 mg PO TID PRN PRN Reason: Muscle Pain Discontinued LORazepam [Ativan] 0.5 mg PO HS Discharge Medication List tiZANidine [Zanaflex] 4 mg PO TID PRN 10/22/17 [History] Escitalopram [Lexapro] 10 mg PO DAILY #14 tab 10/26/17 [Rx] Gabapentin [Neurontin] 300 mg PO TID #84 cap 10/26/17 [Rx] traZODone HCL [Desyrel] 75 mg PO HS #21 tab 10/26/17 [Rx] Follow up Appointment(s)/Referral(s): Viktor Brooks [Outside] - 1 Week Osmel Ramirez MD [Primary Care Provider] - 1-2 days Patient Instructions/Handouts: Depression (DC), Suicide Prevention for Adults ( DC) Activity/Diet/Wound Care/Special Instructions: Activity and Diet as tolerated. Avoid the use of street drugs and alcohol. Take all medications as prescribed, when you are in need of refills contact your medical doctor or psychiatrist. Please go to all scheduled outpatient appointments for aftercare treatment. If symptoms return or worsen you can call the crisis line @ and/or return to the nearest emergency room for evaluation. Discharge Disposition: HOME SELF-CARE
== END 2017-10-26 12:00 | disposition home or self-care (01) | DRG 885 ==
LOC: EC 15:04 → 3MHU 17:13
PROVIDERS: ADMIT Psychiatry & Neurology Psychiatry; ATTEND Psychiatry & Neurology Psychiatry
DX: F32.1 Major depressive disorder, single episode, moderate (principal); R45.851 Suicidal ideations; M54.9 Dorsalgia, unspecified; F41.9 Anxiety disorder, unspecified; F17.200 Nicotine dependence, unspecified, uncomplicated; G89.29 Other chronic pain; Z96.1 Presence of intraocular lens; Z82.49 Family history of ischemic heart disease and other diseases of the circulatory system; Z90.49 Acquired absence of other specified parts of digestive tract; Z83.3 Family history of diabetes mellitus; Z79.899 Other long term (current) drug therapy; Z86.69 Personal history of other diseases of the nervous system and sense organs; Z82.3 Family history of stroke; Z79.891 Long term (current) use of opiate analgesic; Z87.19 Personal history of other diseases of the digestive system
CPT/HCPCS: 36415; 80053; 80306; 81003; 82075; 83520; 84439; 84443; 85025; 99285

== ENCOUNTER 2018-04-11 19:39 | Emergency (ER) | payer MEDICARE, OTHER ==
[2018-04-11] MEDS ORDERED: KETOROLAC 60 MG/2 ML VIAL IM STA (19:57)
--- NOTE | 2018-04-11 20:00 | ED ---
General Adult HPI - General Chief complaint: Urogenital Stated complaint: Male Time Seen by Provider: 04/11/18 19:40 Source: patient, RN notes reviewed Mode of arrival: ambulatory Limitations: no limitations - History of Present Illness Initial comments: This is a 52-year-old male presents emergency Department with a swollen scrotum. Patient states his been ongoing for approximately 3-4 years. Patient states he has had an ultrasound of the past but doesn't remember what the problem was. Patient states in he was having testicular torsion and he had them attach the scrotum at that time so they would not force anymore. Patient states he comes in today because the pain seems to be a little worse today than normal. Patient denies any fever chills. Patient denies any abnormal drainage. Patient denies any injury or trauma. Patient denies any more swelling. Patient denies any erythema. Patient denies abdominal pain patient denies any nausea vomiting. Patient denies any dysuria hematuria urinary frequency. - Related Data Home Medications Medication Instructions Recorded Confirmed tiZANidine [Zanaflex] 4 mg PO TID PRN 10/22/17 10/22/17 Previous Rx's Medication Instructions Recorded Escitalopram [Lexapro] 10 mg PO DAILY #14 tab 10/26/17 Gabapentin [Neurontin] 300 mg PO TID #84 cap 10/26/17 traZODone HCL [Desyrel] 75 mg PO HS #21 tab 10/26/17 Allergies Allergy/AdvReac Type Severity Reaction Status Date / Time No Known Allergies Allergy Verified 04/11/18 19:45 Review of Systems ROS Statement: Those systems with pertinent positive or pertinent negative responses have been documented in the HPI. ROS Other: All systems not noted in ROS Statement are negative. Past Medical History Past Medical History: Renal Disease Additional Past Medical History / Comment(s): Diagnosed with "twisted bowel" in 2011, bowel resection 07/19/2012, history of acute renal failure related to dehydration, History of Any Multi-Drug Resistant Organisms: None Reported Past Surgical History: Bowel Resection, Hernia Repair Additional Past Surgical History / Comment(s): Volvulus, Last eye surgery 2017 lens repair, 12/2016 retinal reattachment surgery. Past Anesthesia/Blood Transfusion Reactions: No Reported Reaction Past Psychological History: Anxiety Smoking Status: Current every day smoker Past Alcohol Use History: Rare Past Drug Use History: Marijuana - Past Family History Father Family Medical History: CVA/TIA Additional Family Medical History / Comment(s): Patient's father at the age of 8080 years old from "organ failure." Mother Family Medical History: Diabetes Mellitus, Hypertension Additional Family Medical History / Comment(s): Patient's mother passedy away "of old age" per patient. General Exam - General Exam Comments Initial Comments: GENERAL Patient is well-developed and well-nourished. Patient is in mild distress. EYES Patient's pupils are equal and round. Extraocular motion is intact SKIN Unremarkable NEURO The patient is alert and oriented 3 PYSCH Patient has normal interpersonal interactions. MUSCULOSKELETAL All 4 extremities and full range of motion. GENITALIA Scrotum appears to have quite a bit of fluid within it. There is no erythema there is no hernias in the inguinal canals. There is no penile abnormality. The right side is mildly tender with palpation. Limitations: no limitations Course Vital Signs 04/11/18 19:42 Temperature 97.9 F Pulse Rate 78 Respiratory 18 Rate Blood Pressure 121/75 O2 Sat by Pulse 100 Oximetry Medical Decision Making - Medical Decision Making Ultrasound showed a hydrocele. Patient's aware he needs follow-up with urology and he has not done that over the last 3-4 years. Disposition Clinical Impression: Hydrocele Disposition: HOME SELF-CARE Condition: Good Instructions: Hydrocele (ED) Is patient prescribed a controlled substance at d/c from ED?: No Referrals: Osmel Ramirez MD [Primary Care Provider] - 1-2 days Erwin Cifuentes MD [STAFF PHYSICIAN] - 1-2 days Time of Disposition: 20:45
--- NOTE | 2018-04-11 20:59 | US ---
EXAMINATION TYPE: US scrotum with doppler. Grayscale and color Doppler Duplex imaging performed of matt lyn scrotum. DATE OF EXAM: 04/11/2018 COMPARISON: NONE CLINICAL HISTORY: Pain. Bilateral pain and swellilng. EXAM MEASUREMENTS: TESTICLES: Right Testicle: 2.9 x 1.9 x 3.8 cm Left Testicle: 3.8 x 1.5 x 3.3 cm EPIDIDYMIS HEAD: Right Epididymis: 1.2 x 1.0 x 1.0 cm Left Epididymis: Not well visualized due to fluid. Doppler performed to assess for testicular vascularity; good bilateral color flow and waveforms are s een. There is no evidence of testicular torsion. Presence of hydroceles: Yes bilaterally. Presence of varicoceles: No Large bilateral hydroceles seen. IMPRESSION: No testicular torsion or mass. Large bilateral scrotal fluid collections. This appears ex trinsic to the testicles and could be related to a hernia with ascites.
[2018-04-11 21:07] VITALS: BP 126/60; PULSE 66; RESP 17; TEMP 98.6
== END 2018-04-11 21:04 | disposition home or self-care (01) ==
LOC: EC 19:39
DX: N43.3 Hydrocele, unspecified (principal); F17.200 Nicotine dependence, unspecified, uncomplicated
CPT/HCPCS: 76870; 93975; 96372; 99283

== ENCOUNTER → 2018-05-07 | Outpatient (CLI) | payer MEDICARE, OTHER ==
--- NOTE | 2018-05-07 09:30 | MR ---
EXAMINATION TYPE: MR lumbar spine wo con DATE OF EXAM: 05/07/2018 COMPARISON: 06/22/2016 HISTORY: Low back pain and numbness CONTRAST: 0 mL intravenous Gadavist. TECHNIQUE: Multiplanar, multisequence images of the lumbar spine were acquired. FINDINGS: L5-S1: There is a small central protrusion with mild anterior thecal sac compression. No spinal canal stenosis is present. Neural foramen are patent. L4-L5: Broad-based disc bulge is present with mild anterior thecal sac compression. Facet hypertrophy with ligamentum flavum laxity, slightly greater on the left has posterior lateral thecal sac naseem feli. Spinal canal narrowing without AP spinal canal stenosis may be present. Some mild to moderate l eft foraminal stenosis. L3-L4: Broad-based disc bulge has moderate anterior thecal sac compression. No AP spinal canal stenos is is present. Ligamentum flavum laxity and mild facet hypertrophy has posterior lateral thecal sac c ompression. There is a moderate right foraminal stenosis and [id number] left foraminal stenosis . Disc space loss is evident through this level. L2-L3: There may be a minimal retrolisthesis of L2 on L3 with disc uncovering. This has mild anterior thecal sac contact. No spinal canal stenosis present. Neural foramen are patent. L1-L2: Broad-based disc bulge is present with moderate anterior thecal sac compression. This is sligh tly greater to the right paracentral region. No AP spinal canal stenosis is present. Neural foramen a re patent. T12-L1: No significant disc bulge or disc herniation. No spinal canal stenosis. No foraminal stenos is. Neural foramen are patent.. Cord terminates at the L1 level. COMPARISON: The small central protrusion with mild anterior thecal sac compression at L5-S1 may have increased slightly over the interval. Changes at L3-4 and L4-5 appears stable. The disc bulging or di sc uncovering at L2-3 appears stable. Disc changes at L1-2 have increased over the interval with loss of disc height. Mild right paracentral disc bulge appears similar. IMPRESSION: 1. Multilevel disc bulges with mild to moderate anterior thecal sac compression discussed above. The disc changes at L1-2 may be slightly progressive with remaining levels appearing similar to compariso n. 2. Moderate foraminal narrowing L3-4 L4-5 on the left.
== END | disposition home or self-care (01) ==
LOC: RADMRIMAIN 06:25
PROVIDERS: ATTEND Psychiatry & Neurology Neurology
DX: M99.73 Connective tissue and disc stenosis of intervertebral foramina of lumbar region (principal); M51.27 Other intervertebral disc displacement, lumbosacral region
CPT/HCPCS: 72148

== ENCOUNTER → 2019-03-22 | Outpatient (CLI) | payer MEDICARE ==
--- NOTE | 2019-03-23 14:08 | XR ---
EXAMINATION TYPE: XR lumbar spine 2 or 3V DATE OF EXAM: 03/22/2019 COMPARISON: None HISTORY: M 99.01, M9903, M 54.41 TECHNIQUE: Three-view lumbar spine FINDINGS: There 5 lumbar-type vertebral bodies. Pedicles are intact. Scoliosis is present with a conv exity to the left. There is loss of disc height L3-4. Milder loss of disc height is present L4-5 and L2-3. IMPRESSION: 1. Scoliosis with degenerative disc changes.
--- NOTE | 2019-03-23 14:12 | XR ---
EXAMINATION TYPE: XR pelvis AP view DATE OF EXAM: 03/22/2019 COMPARISON: None HISTORY: M 99.01, M9903, M 54.41 TECHNIQUE: AP pelvis FINDINGS: Femoral heads articulate with the acetabulum. Joint spaces are preserved. Symphysis pubis i s normal. No acute fractures are evident. IMPRESSION: 1. Normal AP pelvis
--- NOTE | 2019-03-23 14:28 | XR ---
EXAMINATION TYPE: XR cervical spine limited DATE OF EXAM: 03/22/2019 COMPARISON: None HISTORY: M 99.01, M 99.03 TECHNIQUE: Three-view cervical spine FINDINGS: There is loss of disc height C6-7. Remaining disc heights are preserved. A minimal anteroli sthesis of C4 on C5 may be present. The prevertebral space is normal. Remaining disc heights are preserved. Posterior spinal lamellar liv e is intact. IMPRESSION: 1. Degenerative disc changes C6-7.
== END | disposition home or self-care (01) ==
LOC: RADXRMAIN 16:46
PROVIDERS: ATTEND Chiropractor
DX: M51.36 Other intervertebral disc degeneration, lumbar region (principal); M50.323 Other cervical disc degeneration at C6-C7 level; M41.9 Scoliosis, unspecified; M54.41 Lumbago with sciatica, right side; M99.03 Segmental and somatic dysfunction of lumbar region
CPT/HCPCS: 72040; 72100; 72170

== ENCOUNTER 2021-02-14 12:16 | Emergency (ER) | payer MEDICARE, OTHER ==
[2021-02-14 12:28] VITALS: BP 113/70; PULSE 76; RESP 16; TEMP 97.5
--- NOTE | 2021-02-14 12:48 | ED ---
Skin/Abscess/FB HPI - General Chief complaint: Skin/Abscess/Foreign Body Stated complaint: R Hand/Arm Swelling, poss insect bite Time Seen by Provider: 02/14/21 12:31 Source: patient, RN notes reviewed Mode of arrival: ambulatory Limitations: no limitations - History of Present Illness Initial comments: 55-year-old male presents emergency department with chief complaint of possible spider bite. Patient states by tenderness right wrist and left hand states are very red swollen and now have become more painful. Patient is seems to spread. The past history of MRSA. Denies any history of VRE. - Related Data Home Medications Medication Instructions Recorded Confirmed tiZANidine [Zanaflex] 4 mg PO TID PRN 10/22/17 10/22/17 Previous Rx's Medication Instructions Recorded Escitalopram [Lexapro] 10 mg PO DAILY #14 tab 10/26/17 Gabapentin [Neurontin] 300 mg PO TID #84 cap 10/26/17 traZODone HCL [Desyrel] 75 mg PO HS #21 tab 10/26/17 Cephalexin [Keflex] 500 mg PO Q6HR #40 cap 02/14/21 Allergies Allergy/AdvReac Type Severity Reaction Status Date / Time No Known Allergies Allergy Verified 02/14/21 12:28 Review of Systems ROS Statement: Those systems with pertinent positive or pertinent negative responses have been documented in the HPI. ROS Other: All systems not noted in ROS Statement are negative. Past Medical History Past Medical History: Renal Disease Additional Past Medical History / Comment(s): Diagnosed with "twisted bowel" in 2011, bowel resection 07/19/2012, history of acute renal failure related to dehydration, History of Any Multi-Drug Resistant Organisms: None Reported Past Surgical History: Bowel Resection, Hernia Repair Additional Past Surgical History / Comment(s): Volvulus, Last eye surgery 09/21/2017 lens repair, 12/2016 retinal reattachment surgery. Past Anesthesia/Blood Transfusion Reactions: No Reported Reaction Past Psychological History: Anxiety Smoking Status: Current every day smoker Past Alcohol Use History: Rare Past Drug Use History: Marijuana - Past Family History Father Family Medical History: CVA/TIA Additional Family Medical History / Comment(s): Patient's father at the age of 8080 years old from "organ failure." Mother Family Medical History: Diabetes Mellitus, Hypertension Additional Family Medical History / Comment(s): Patient's mother passedy away "of old age" per patient. General Exam Limitations: no limitations General appearance: alert, in no apparent distress Head exam: Present: atraumatic, normocephalic, normal inspection Neck exam: Present: normal inspection. Absent: tenderness, meningismus, lymphadenopathy Respiratory exam: Present: normal lung sounds bilaterally. Absent: respiratory distress, wheezes, rales, rhonchi, stridor Cardiovascular Exam: Present: regular rate, normal rhythm, normal heart sounds. Absent: systolic murmur, diastolic murmur, rubs, gallop, clicks Neurological exam: Present: alert Skin exam: Present: warm, dry, intact, normal color, rash (Right hand is swollen, erythematous with some excoriations and small open sores noted, left hand second digit there is a pustule) Course Vital Signs 02/14/21 12:25 Temperature 97.5 F L Pulse Rate 76 Respiratory 16 Rate Blood Pressure 113/70 O2 Sat by Pulse 98 Oximetry Medical Decision Making - Medical Decision Making 35-year-old male presented for hand rash and swelling. Patient was treated for cellulitis. Patient started on Keflex. Return parameters were discussed Disposition Clinical Impression: Cellulitis of hand Disposition: HOME SELF-CARE Condition: Stable Instructions (If sedation given, give patient instructions): Cellulitis (ED) Additional Instructions: Please return to the Emergency Department if symptoms worsen or any other concerns. Prescriptions: Cephalexin [Keflex] 500 mg PO Q6HR #40 cap Is patient prescribed a controlled substance at d/c from ED?: No Referrals: Osmel Ramirez MD [Primary Care Provider] - 1-2 days Time of Disposition: 12:46
== END 2021-02-14 13:25 | disposition home or self-care (01) ==
LOC: EC 12:16
DX: L03.113 Cellulitis of right upper limb (principal); F17.200 Nicotine dependence, unspecified, uncomplicated
CPT/HCPCS: 99283

== ENCOUNTER 2022-01-28 14:29 | Emergency (ER) | payer MEDICARE, OTHER ==
[2022-01-28 14:36] VITALS: BP 115/70; PULSE 104; RESP 20; TEMP 98.3
--- NOTE | 2022-01-28 15:53 | XR ---
EXAMINATION TYPE: XR chest 2V DATE OF EXAM: 01/28/2022 3:43 PM COMPARISON: 07/26/2021 TECHNIQUE: XR chest 2V Frontal and lateral views of the chest. CLINICAL INDICATION:Male, 56 years old with history of rib; FINDINGS: Lungs/Pleura: There is no evidence of pleural effusion, focal consolidation, or pneumothorax. Pulmonary vascularity: Unremarkable. Heart/mediastinum: Cardiomediastinal silhouette is unremarkable. Atherosclerotic calcifications are seen in the aorta. Musculoskeletal: No acute osseous pathology. Mild dextro scoliosis. IMPRESSION: No acute cardiopulmonary disease/process.
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
== END 2022-01-28 16:43 | disposition home or self-care (01) ==
LOC: EC 14:29
DX: S22.42XD Multiple fractures of ribs, left side, subsequent encounter for fracture with routine healing (principal); F17.200 Nicotine dependence, unspecified, uncomplicated; E11.9 Type 2 diabetes mellitus without complications; I10 Essential (primary) hypertension; V89.2XXA Person injured in unspecified motor-vehicle accident, traffic, initial encounter
CPT/HCPCS: 71046; 99283

== ENCOUNTER 2023-06-26 18:23 | Observation (INO) | payer MEDICARE, OTHER ==
[2023-06-26 19:34] LABS: Basophils % (A) 0 %; Eosinophils # (A) 0.1 k/uL (0-0.7); Eosinophils % (A) 1 %; HGB 18.7 gm/dL (13.0-17.5); Lymphocytes # (A) 2.3 k/uL (1.0-4.8); Lymphocytes % (A) 20 %; MCH 31.8 pg (25.0-35.0); MCHC 35.2 g/dL (31.0-37.0); MCV 90.3 fL (80.0-100.0); Mean Platelet Volume 7.9; Monocytes # (A) 0.7 k/uL (0-1.0); Monocytes % (A) 6 %; Neutrophils # (A) 8.4 k/uL (1.3-7.7); Neutrophils % (A) 71 %; Platelet Count 252 k/uL (150-450); RBC 5.87 m/uL (4.30-5.90); RDW 11.6 % (11.5-15.5); WBC 11.8 k/uL (3.8-10.6)
--- NOTE | 2023-06-26 19:44 | XR ---
EXAMINATION TYPE: XR KUB DATE OF EXAM: 06/26/2023 7:30 PM CLINICAL INDICATION:Male, 57 years old with history of abdominal pain; H COMPARISON: None. TECHNIQUE: Upright radiographic view/s of the abdomen/pelvis obtained. FINDINGS: Scattered gas in bowel loops without significant distention seen. Mild to moderate gas throughout the colon with moderate amount of stool, greatest distally. No pneumoperitoneum is suggested. I see no p athologic calcifications. Vascular calcifications are present. Degenerative changes of the lumbar spi ne with mild to moderate levocurvature. Hips appear intact with mild degenerative changes. IMPRESSION: Nonspecific, likely nonobstructive bowel gas pattern. Moderate colonic stool, correlate for constipation. No free air detected. If concern persists, consider follow-up radiographs and/or CT.
[2023-06-26 20:08] LABS: ALT 61 U/L (4-49); AST 38 U/L (17-59); African American GFR (CKD) >90 (>60 ml/min/1.73 sqM); Albumin 5.3 g/dL (3.5-5.0); Alkaline Phosphatase 74 U/L (38-126); Amylase 93 U/L (30-110); Anion Gap 19 mmol/L; Calcium 10.2 mg/dL (8.4-10.2); Carbon Dioxide 21 mmol/L (22-30); Chloride 96 mmol/L (98-107); Glucose 116 mg/dL (74-99); Lipase 66 U/L (23-300); Non-African American GFR(CKD) >90 (>60 ml/min/1.73 sqM); Potassium 3.1 mmol/L (3.5-5.1); Sodium 136 mmol/L (137-145); Total Bilirubin 1.2 mg/dL (0.2-1.3); Total Protein 8.7 g/dL (6.3-8.2)
[2023-06-26 20:10] LABS: Blood Urea Nitrogen 18 mg/dL (9-20)
--- NOTE | 2023-06-26 22:54 | ED ---
Abdominal Pain HPI - General Chief Complaint: Abdominal Pain Stated Complaint: abd pain Time Seen by Provider: 06/26/23 22:52 Source: patient, family, RN notes reviewed, old records reviewed Mode of arrival: ambulatory Limitations: no limitations - History of Present Illness Initial Comments: This is a 57-year-old male to the emergency department for evaluation of abdominal pain. Severe nausea vomiting and diarrhea with history of bowel resection history of small bowel obstruction and multiple recurrent surgeries. Patient states he gets this sick about once a year sometimes is able to start himself to improve symptoms but this time the pain nausea vomiting is not tender improved MD Complaint: abdominal pain -: days(s) Location: diffuse Radiation: epigastric Migration to: epigastric Severity: moderate Severity scale (1-10): 7 Consistency: constant Improves With: nothing Worsens With: nothing Associated Symptoms: nausea, vomiting, constipation Treatments Prior to Arrival: other - Related Data Previous Rx's Medication Instructions Recorded HYDROcodone/APAP 5-325MG [[place] 1 tab PO Q6HR PRN #12 tab 07/26/21 5-325] Ibuprofen [Motrin] 600 mg PO Q8HR PRN #24 tab 07/26/21 Allergies Allergy/AdvReac Type Severity Reaction Status Date / Time No Known Allergies Allergy Verified 01/28/22 14:36 Review of Systems ROS Statement: Those systems with pertinent positive or pertinent negative responses have been documented in the HPI. ROS Other: All systems not noted in ROS Statement are negative. Past Medical History Past Medical History: Renal Disease Additional Past Medical History / Comment(s): Diagnosed with "twisted bowel" in 2011, bowel resection 07/19/2012, history of acute renal failure related to dehydration, History of Any Multi-Drug Resistant Organisms: None Reported Past Surgical History: Bowel Resection, Hernia Repair Additional Past Surgical History / Comment(s): Volvulus, Last eye surgery 09/21/2017 lens repair, 12/2016 retinal reattachment surgery. Past Anesthesia/Blood Transfusion Reactions: No Reported Reaction Past Psychological History: Anxiety Smoking Status: Current every day smoker Past Alcohol Use History: Rare Past Drug Use History: Marijuana - Past Family History Father Family Medical History: CVA/TIA Additional Family Medical History / Comment(s): Patient's father at the age of 8080 years old from "organ failure." Mother Family Medical History: Diabetes Mellitus, Hypertension Additional Family Medical History / Comment(s): Patient's mother passedy away "of old age" per patient. General Exam Limitations: no limitations General appearance: alert, in no apparent distress, anxious Head exam: Present: atraumatic, normocephalic, normal inspection Eye exam: Present: normal appearance, PERRL, EOMI. Absent: scleral icterus, conjunctival injection, periorbital swelling ENT exam: Present: normal exam, mucous membranes moist Neck exam: Present: normal inspection. Absent: tenderness, meningismus, lymphadenopathy Respiratory exam: Present: normal lung sounds bilaterally. Absent: respiratory distress, wheezes, rales, rhonchi, stridor Cardiovascular Exam: Present: regular rate, normal rhythm, normal heart sounds. Absent: systolic murmur, diastolic murmur, rubs, gallop, clicks GI/Abdominal exam: Present: soft, normal bowel sounds. Absent: distended, tenderness, guarding, rebound, rigid Extremities exam: Present: normal inspection, full ROM, normal capillary refill. Absent: tenderness, pedal edema, joint swelling, calf tenderness Back exam: Present: normal inspection Neurological exam: Present: alert, oriented X3, CN II-XII intact Psychiatric exam: Present: normal affect, normal mood Skin exam: Present: warm, dry, intact, normal color. Absent: rash Course Vital Signs 06/26/23 18:45 Temperature 98.8 F Pulse Rate 98 Respiratory 16 Rate Blood Pressure 135/88 O2 Sat by Pulse 99 Oximetry - Reevaluation(s) Reevaluation #1: 06/26/23 22:53 Medical records reviewed Reevaluation #2: 06/26/23 23:59 patient patient has no improvement in pain still with nausea vomiting Reevaluation #3: 06/27/23 00:00 Patient informed of results questions answered Reevaluation #4: 06/26/23 22:53 Was pt. sent in by a medical professional or institution (, PA, GEODETIC ENGINEER, urgent care, hospital, or custodial...) When possible be specific @ -no Did you speak to anyone other than the patient for history (EMS, parent, family, police, friend...)? What history was obtained from this source @ -no Did you review nursing and triage notes (agree or disagree)? Why? @ -agree Are old charts reviewed (outside hosp., previous admission, EMS record, old EKG, old radiological studies, urgent care reports/EKG's, custodial records)? Report findings @ -yes Differential Diagnosis (chest pain, altered mental status, abdominal pain women, abdominal pain men, vaginal bleeding, weakness, fever, dyspnea, syncope, headache, dizziness, GI bleed, back pain, seizure, CVA, palpatations, mental health, musculoskeletal)? @ -prior EKG interpreted by me (3pts min.). @ -yes X-rays interpreted by me (1pt min.). @ -yes CT interpreted by me (1pt min.). @ -no U/S interpreted by me (1pt. min.). @ -no What testing was considered but not performed or refused? (CT, X-rays, U/S, labs)? Why? @ -none What meds were considered but not given or refused? Why? @ -none Did you discuss the management of the patient with other professionals (professionals i.e. , PA, GEODETIC ENGINEER, lab, RT, psych nurse, social media job titles, vamp creaser, teacher, chief customer officer, director case)? Give summary @ -no Was smoking cessation discussed for >3mins.? @ -no Was critical care preformed (if so, how long)? @ -no Were there social determinants of health that impacted care today? How? (Homelessness, low income, unemployed, alcoholism, drug addiction, transportation, low edu. Level, literacy, decrease access to med. care, longterm, re hab)? @ -none Was there de-escalation of care discussed even if they declined (Discuss DNR or withdrawal of care, Hospice)? DNR status @ -no What co-morbidities impacted this encounter? (DM, HTN, Smoking, COPD, CAD, Cancer, CVA, ARF, Chemo, Hep., AIDS, mental health diagnosis, sleep apnea, morbid obesity)? @ -none Was patient admitted / discharged? Hospital course, mention meds given and route, prescriptions, significant lab abnormalities, going to OR and other pertinent info. @ - Undiagnosed new problem with uncertain prognosis? @ -no Drug Therapy requiring intensive monitoring for toxicity (Heparin, Nitro, Insulin, Cardizem)? @ -no Were any procedures done? @ -no Diagnosis/symptom? @ - Acute, or Chronic, or Acute on Chronic? @ -Acute Uncomplicated (without systemic symptoms) or Complicated (systemic symptoms)? @ -Complicated Side effects of treatment? @ -no Exacerbation, Progression, or Severe Exacerbation? @ -exacerbation Poses a threat to life or bodily function? How? (Chest pain, [place], [place], pneumonia, PE, COPD, DKA, ARF, appy, cholecystitis, CVA, Diverticulitis, Homicidal, Suicidal, threat to staff... and all critical care pts) @ -yes Reevaluation #5: 06/27/23 00:00 Differential Abdominal Pain Men: Appendicitis, cholecystitis, diverticulosis, ischemic bowel, pancreatitis, hepatitis, UTI, gastroenteritis, AAA, incarcerated hernia, bowel obstruction, constipation, inflammatory bowel, hepatitis, peptic ulcer disease, splenic infarction, perforated viscus, testicular torsion, this is not meant to be an all-inclusive list - Consultations Consultation #1: Spoke with [facility] who will admit this patient Medical Decision Making - Medical Decision Making 57 male to the emergency department for evaluation persistent nausea vomiting diarrhea weakness and low potassium. Patient be admitted for electrolyte replacement hydration, general surgery to see - Lab Data Result diagrams: 06/26/23 19:29 06/26/23 19:29 Lab Results 06/26/23 06/26/23 06/26/23 Range/Units 19:29 19:29 19:29 WBC 11.8 H (3.8-10.6) k/uL RBC 5.87 (4.30-5.90) m/uL Hgb 18.7 H (13.0-17.5) gm/dL Hct 53.0 (39.0-53.0) % MCV 90.3 (80.0-100.0) fL MCH 31.8 (25.0-35.0) pg MCHC 35.2 (31.0-37.0) g/dL RDW 11.6 (11.5-15.5) % Plt Count 252 (150-450) k/uL MPV 7.9 Neutrophils % 71 % Lymphocytes % 20 % Monocytes % 6 % Eosinophils % 1 % Basophils % 0 % Neutrophils # 8.4 H (1.3-7.7) k/uL Lymphocytes # 2.3 (1.0-4.8) k/uL Monocytes # 0.7 (0-1.0) k/uL Eosinophils # 0.1 (0-0.7) k/uL Basophils # 0.0 (0-0.2) k/uL Sodium 136 L (137-145) mmol/L Potassium 3.1 L (3.5-5.1) mmol/L Chloride 96 L (98-107) mmol/L Carbon Dioxide 21 L (22-30) mmol/L Anion Gap 19 mmol/L BUN 18 (9-20) mg/dL Creatinine 0.90 (0.66-1.25) mg/dL Est GFR (CKD-EPI)AfAm >90 (>60 ml/min/1.73 sqM) Est GFR (CKD-EPI)NonAf >90 (>60 ml/min/1.73 sqM) Glucose 116 H (74-99) mg/dL Calcium 10.2 (8.4-10.2) mg/dL Total Bilirubin 1.2 (0.2-1.3) mg/dL AST 38 (17-59) U/L ALT 61 H (4-49) U/L Alkaline Phosphatase 74 (38-126) U/L Troponin I <0.012 (0.000-0.034) ng/mL Total Protein 8.7 H (6.3-8.2) g/dL Albumin 5.3 H (3.5-5.0) g/dL Amylase 93 (30-110) U/L Lipase 66 (23-300) U/L - Radiology Data Radiology results: report reviewed (CT of the abdomen and pelvis is negative for acute disease), image reviewed Disposition Clinical Impression: Abdominal pain, Nausea & vomiting, Intractable vomiting, Abdominal colic, Dehydration, Hypokalemia Disposition: ADMITTED IP TO THIS HOSP Condition: Fair Is patient prescribed a controlled substance at d/c from ED?: No Referrals: Osmel Ramirez MD [Primary Care Provider] - 1-2 days Time of Disposition: 00:00
[2023-06-26] MEDS ORDERED: SODIUM CHLORIDE 0.9% 1,000 ML IV STA (23:12)
[2023-06-26] MEDS ORDERED: POTASSIUM BICARBONATE/CIT AC 20 MEQ TABLET.EFF PO ONE (23:12)
[2023-06-26] MEDS ORDERED: SODIUM CHLORIDE 0.9% 500 ML 500 ML IV STA (23:12)
[2023-06-26] MEDS ORDERED: MORPHINE SULFATE 4 MG/ML SYRINGE IVP STA (23:12)
[2023-06-26] MEDS ORDERED: ONDANSETRON 4 MG/2 ML VIAL IVP STA (23:12)
--- NOTE | 2023-06-26 23:26 | CT ---
EXAM: CT Abdomen and Pelvis With Intravenous Contrast CLINICAL HISTORY: ITS.REASON CT Reason: pain TECHNIQUE: Axial computed tomography images of the abdomen and pelvis with intravenous contrast. CTDI is 10.3 mGy and DLP is 443.5 mGy-cm. This CT exam was performed using one or more of the following dose reduction techniques: automated exposure control, adjustment of the mA and/or kV according to patient size, and/or use of iterative reconstruction technique. COMPARISON: No previous studies. FINDINGS: Lung bases: Unremarkable. No mass. No consolidation. Pleural space: Unremarkable. No pneumothorax. No pleural effusions are noted. Heart: Heart is normal in size. ABDOMEN: Liver: Fatty liver. The liver and the spleen enhance uniformly. Gallbladder and bile ducts: See below. Pancreas: See below. Spleen: See above. Adrenals: The adrenal glands, the head, body, tail of the pancreas and the gallbladder are unremarkable. Kidneys and ureters: 2.1 cm simple cyst at the upper pole region of the left kidney. No renal calculus or hydronephrosis. Stomach and bowel: Moderate quantity of ingested material in the stomach. Moderate quantity of stool throughout the colon. Diverticulosis without diverticulitis. No bowel obstruction. PELVIS: Appendix: No findings to suggest acute appendicitis. Bladder: Unremarkable. No mass. Reproductive: Heterogeneity of the prostate gland. ABDOMEN and PELVIS: Intraperitoneal space: Unremarkable. No free air. No significant fluid collection. Bones/joints: No acute fracture. No dislocation. No spondylolysis. Soft tissues: Unremarkable. Vasculature: Portal vein is patent. Atherosclerotic disease of the abdominal aorta without change in caliber. Flow is noted within the celiac, SMA, the renal arteries, and MANDEEP. No abdominal aortic aneurysm. Lymph nodes: Unremarkable. No retroperitoneal lymphadenopathy. Other findings: Multilevel vacuum disks. IMPRESSION: 1. Fatty liver. 2. The gallbladder is unremarkable. 3. No renal calculus or hydronephrosis. 4. No bowel obstruction. 5. Diverticulosis without diverticulitis.
[2023-06-26] MEDS ORDERED: NALOXONE 0.4 MG/ML 1 ML VIAL IV PRN (23:58)
[2023-06-26] MEDS ORDERED: POTASSIUM CHLORIDE 20 MEQ in WATER FOR INJECTION 1 100ML.BAG IVPB STA (23:58)
[2023-06-27] MEDS: PANTOPRAZOLE 40 MG/10 ML VIAL IV SCH ×2 (00:30→08:32)
[2023-06-27] MEDS: SODIUM CHLORIDE 0.9% 1,000 ML IV SCH ×3 (00:31→14:22)
[2023-06-27] MEDS: MORPHINE SULFATE 4 MG/ML SYRINGE IV PRN ×4 (01:21→21:56)
[2023-06-27] MEDS: ONDANSETRON 4 MG/2 ML VIAL IVP PRN ×2 (07:46→16:53)
[2023-06-27 08:23] LABS: ALT 38 U/L (4-49); AST 32 U/L (17-59); African American GFR (CKD) >90 (>60 ml/min/1.73 sqM); Albumin 3.2 g/dL (3.5-5.0); Alkaline Phosphatase 49 U/L (38-126); Anion Gap 11 mmol/L; Blood Urea Nitrogen 14 mg/dL (9-20); Carbon Dioxide 18 mmol/L (22-30); Chloride 104 mmol/L (98-107); Glucose 88 mg/dL (74-99); Magnesium 2.1 mg/dL (1.6-2.3); Non-African American GFR(CKD) >90 (>60 ml/min/1.73 sqM); Sodium 133 mmol/L (137-145); Total Protein 5.8 g/dL (6.3-8.2)
[2023-06-27 08:27] LABS: Potassium 3.7 mmol/L (3.5-5.1)
[2023-06-27 08:32] LABS: Basophils % (A) 1 %; Eosinophils # (A) 0.1 k/uL (0-0.7); Eosinophils % (A) 2 %; HCT 39.1 % (39.0-53.0); HGB 13.4 gm/dL (13.0-17.5); Lymphocytes # (A) 2.9 k/uL (1.0-4.8); Lymphocytes % (A) 36 %; MCH 32.1 pg (25.0-35.0); MCHC 34.3 g/dL (31.0-37.0); MCV 93.6 fL (80.0-100.0); Mean Platelet Volume 8.2; Monocytes # (A) 0.5 k/uL (0-1.0); Monocytes % (A) 7 %; Neutrophils # (A) 4.2 k/uL (1.3-7.7); Neutrophils % (A) 53 %; Platelet Count 169 k/uL (150-450); RBC 4.18 m/uL (4.30-5.90); RDW 11.7 % (11.5-15.5); WBC 7.9 k/uL (3.8-10.6)
[2023-06-27] MEDS ORDERED: NICOTINE 14MG/24HR PATCH TRANSDERM STA (11:10)
--- NOTE | 2023-06-27 12:31 | P.HPIM ---
History of Present Illness H&P Date: 06/27/23 History of present illness; patient is a 57-year-old gentleman with past medical history significant for bowel resection, history of bowel obstruction who presented to the ER because of abdominal pain. Patient stated he was all right 5 days back when he started that he was getting generalized abdominal pain. Patient also hasn't had a bowel movement for the last 1 week, patient was complaining of nausea associated with vomiting. Denied any fever or chills. Denies any chest pain or shortness of breath. Patient stated that he normally gets these symptom once a year. Because of the symptoms, patient came to the ER Initial lab work done in the ER showed WBC 10.8, hemoglobin 18.7, platelet count 252, sodium 136, potassium 3.1, BUNs 18, creatinine 0.90, AST 38, AST 61 KUB x-ray showed nonspecific nonobstructive bowel gas pattern CT abdominal and pelvis done showed fatty liver, no renal calculus or hydronephrosis, no bowel obstructions, Patient admitted to medicine service REVIEW OF SYSTEMS: CONSTITUTIONAL: No fever, no malaise, no fatigue. HEENT: No recent visual problems or hearing problems. Denied any sore throat. CARDIOVASCULAR: No chest pain, orthopnea, PND, no palpitations, no syncope. PULMONARY: No shortness of breath, no cough, no hemoptysis. GASTROINTESTINAL: As mentioned in HPI NEUROLOGICAL: No headaches, no weakness, no numbness. HEMATOLOGICAL: Denies any bleeding or petechiae. GENITOURINARY: Denies any burning micturition, frequency, or urgency. MUSCULOSKELETAL/RHEUMATOLOGICAL: Denies any joint pain, swelling, or any muscle pain. ENDOCRINE: Denies any polyuria or polydipsia. The rest of the 14-point review of systems is negative. PHYSICAL EXAMINATION: GENERAL: The patient is alert and oriented x3, not in any acute distress. Well developed, well nourished. HEENT: Pupils are round and equally reacting to light. EOMI. No scleral icterus. No conjunctival pallor. Normocephalic, atraumatic. No pharyngeal erythema. No thyromegaly. CARDIOVASCULAR: S1 and S2 present. No murmurs, rubs, or gallops. PULMONARY: Chest is clear to auscultation, no wheezing or crackles. ABDOMEN: Soft, nontender, nondistended, normoactive bowel sounds. No palpable organomegaly. MUSCULOSKELETAL: No joint swelling or deformity. EXTREMITIES: No cyanosis, clubbing, or pedal edema. NEUROLOGICAL: Gross neurological examination did not reveal any focal deficits. SKIN: No rashes. Assessment and plan Nausea and vomiting Abdominal pain Hypokalemia Hyponatremia Monitor vital signs Monitor CBC Monitor CMP Continue IV fluids Continue antiemetics Continue pain management Advance diet as tolerated Resume home meds Surgery consulted Labs and medication were reviewed.. Continue same treatment. Continue with symptomatic treatment. Resume home medication. Monitor labs and vitals. DVT and GI prophylaxis. Further recommendations as per clinical course of the patient Dictation was produced using [employer] dictation software. please excuse any grammatical, word or spelling errors. Past Medical History Past Medical History: Renal Disease Additional Past Medical History / Comment(s): Diagnosed with "twisted bowel" in 2011, bowel resection 07/19/2012, history of acute renal failure related to dehydration, History of Any Multi-Drug Resistant Organisms: None Reported Past Surgical History: Bowel Resection, Hernia Repair Additional Past Surgical History / Comment(s): Volvulus, Last eye surgery 09/21/2017 lens repair, 12/2016 retinal reattachment surgery. Past Anesthesia/Blood Transfusion Reactions: No Reported Reaction Past Psychological History: Anxiety Smoking Status: Current every day smoker Past Alcohol Use History: Rare Past Drug Use History: Marijuana - Past Family History Father Family Medical History: CVA/TIA Additional Family Medical History / Comment(s): Patient's father at the age of 8080 years old from "organ failure." Mother Family Medical History: Diabetes Mellitus, Hypertension Additional Family Medical History / Comment(s): Patient's mother passedy away "of old age" per patient. Medications and Allergies Home Medications Medication Instructions Recorded Confirmed Type No Known Home Medications 06/27/23 06/27/23 History Allergies Allergy/AdvReac Type Severity Reaction Status Date / Time No Known Allergies Allergy Verified 06/27/23 06:26 Physical Exam Vitals: Vital Signs Temp Pulse Resp BP Pulse Ox 06/27/23 06:30 80 16 127/72 98 06/27/23 02:35 85 18 104/79 99 06/27/23 01:00 85 18 131/86 98 06/27/23 00:03 82 20 163/83 98 06/26/23 18:45 98.8 F 98 16 135/88 99 Intake and Output 06/26/23 06/27/23 06/27/23 22:59 06:59 14:59 Other: Weight 58.967 kg Results CBC & Chem 7: 06/27/23 07:32 06/27/23 07:32 Labs: Abnormal Lab Results - Last 24 Hours (Table) 06/26/23 06/26/23 06/27/23 Range/Units 19:29 19:29 07:32 WBC 11.8 H (3.8-10.6) k/uL RBC 4.18 L (4.30-5.90) m/uL Hgb 18.7 H (13.0-17.5) gm/dL Neutrophils # 8.4 H (1.3-7.7) k/uL Sodium 136 L (137-145) mmol/L Potassium 3.1 L (3.5-5.1) mmol/L Chloride 96 L (98-107) mmol/L Carbon Dioxide 21 L (22-30) mmol/L Glucose 116 H (74-99) mg/dL Calcium (8.4-10.2) mg/dL ALT 61 H (4-49) U/L Total Protein 8.7 H (6.3-8.2) g/dL Albumin 5.3 H (3.5-5.0) g/dL 06/27/23 Range/Units 07:32 WBC (3.8-10.6) k/uL RBC (4.30-5.90) m/uL Hgb (13.0-17.5) gm/dL Neutrophils # (1.3-7.7) k/uL Sodium 133 L (137-145) mmol/L Potassium (3.5-5.1) mmol/L Chloride (98-107) mmol/L Carbon Dioxide 18 L (22-30) mmol/L Glucose (74-99) mg/dL Calcium 8.0 L (8.4-10.2) mg/dL ALT (4-49) U/L Total Protein 5.8 L (6.3-8.2) g/dL Albumin 3.2 L (3.5-5.0) g/dL
--- NOTE | 2023-06-27 14:03 | P.GSCN ---
History of Present Illness Consult date: 06/27/23 History of present illness: CHIEF COMPLAINT: Nausea and vomiting HISTORY OF PRESENT ILLNESS: This is a 57-year-old male who presented to the hospital with complaints of vomiting 6 days. He reports no bowel movement for about 7 days. He was having pain across the lower abdomen this has now improved. He is having flatus. 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 As well as a history of a hernia repair. Computed tomography scan abdomen and pelvis shows no evidence of bowel obstruction. He was found to have a low sodium and potassium level which are working on being corrected. Patient reports that he is starting to feel better now. Patient was seen and examined in the ER. Patient denies being on any blood thinners or cardiac history. PAST MEDICAL HISTORY: See list. PAST SURGICAL HISTORY: See list. MEDICATIONS: See list. ALLERGIES: See list. SOCIAL HISTORY: No illicit drug use. REVIEW OF SYSTEMS: CONSTITUTIONAL: Denies fever or chills. HEENT: Denies blurred vision, vision changes, or eye pain. Denies hemoptysis ENDOCRINE: Denies heat or cold intolerance. CARDIOVASCULAR: Denies chest pain or pressure. RESPIRATORY: No shortness of breath. GASTROINTESTINAL: Please refer to HPI otherwise unremarkable NEURO: Denies history of seizures. PSYCH: No depression or suicidal ideation HEMATOLOGIC: Denies bleeding disorders. LYMPHATIC: The patient denies any lumps and bumps around the neck. GENITOURINARY: Denies any blood in urine or increased urinary frequency. MUSCULOSKELETAL: Denies myalgias. Denies joint swelling. Denies decreased range of motion beyond patients baseline. SKIN: Denies pruitis. Denies rash. PHYSICAL EXAM: VITAL SIGNS: Reviewed GENERAL: Well-developed in no acute distress. HEENT: No sclera icterus. Extraocular movements grossly intact. Moist buccal mucosa. Head is atraumatic, normocephalic. Hears conversational speech. No nasal drainage. NECK: Supple without lymphadenopathy. CHEST: Non-labored respirations and equal bilateral excursions. CARDIOVASCULAR: Palpable 2+ radial pulses. ABDOMEN: Soft. Nondistended. Nontender MUSCULOSKELETAL: No clubbing or cyanosis. NEUROLOGIC: No focal or lateralizing signs. Cranial nerves II through XII grossly intact. PSYCH: Appropriate affect. Alert and oriented to person, place and time. SKIN: Well perfused. Good skin turgor. LABORATORY DATA: WBC 11.8 down to 7.9 Hgb 13.4 platelets 169 Sodium 136 down to 133 potassium 3.1 up to 3.7 creatinine 0.75 Phosphorus 3.0 magnesium 2.1 AST 32 ALT 38 alk phos 49 lipase 66 IMAGING: Computed tomography scan abdomen and pelvis fatty liver. Gallbladder unremark able. No renal calculus or hydronephrosis. No bowel obstruction. Diverticulosis without diverticulitis ASSESSMENT: 1. Abdominal pain with nausea and vomiting 2. Hypokalemia 3. Hyponatremia 4. Constipation PLAN: -Start clear liquid diet -Continue supportive care -Continue IV fluids -Continue to correct electrolytes -Further recommendations forthcoming per surgeon Thank you for this consultation Physician Opticianry Teacher note has been reviewed by physician. Signing provider agrees with the documented findings, assessment, and plan of care. Past Medical History Past Medical History: Renal Disease Additional Past Medical History / Comment(s): Diagnosed with "twisted bowel" in 2011, bowel resection 07/19/2012, history of acute renal failure related to dehydration, History of Any Multi-Drug Resistant Organisms: None Reported Past Surgical History: Bowel Resection, Hernia Repair Additional Past Surgical History / Comment(s): Volvulus, Last eye surgery 09/21/2017 lens repair, 12/2016 retinal reattachment surgery. Past Anesthesia/Blood Transfusion Reactions: No Reported Reaction Past Psychological History: Anxiety Smoking Status: Current every day smoker Past Alcohol Use History: Rare Past Drug Use History: Marijuana - Past Family History Father Family Medical History: CVA/TIA Additional Family Medical History / Comment(s): Patient's father at the age of 8080 years old from "organ failure." Mother Family Medical History: Diabetes Mellitus, Hypertension Additional Family Medical History / Comment(s): Patient's mother passedy away "of old age" per patient. Medications and Allergies Home Medications Medication Instructions Recorded Confirmed Type No Known Home Medications 06/27/23 06/27/23 History Allergies Allergy/AdvReac Type Severity Reaction Status Date / Time No Known Allergies Allergy Verified 06/27/23 06:26 Surgical - Exam Vital Signs Temp Pulse Resp BP Pulse Ox 98.8 F 98 16 135/88 99 06/26/23 18:45 06/26/23 18:45 06/26/23 18:45 06/26/23 18:45 06/26/23 18:45 Results - Labs 06/27/23 07:32 06/27/23 07:32 Abnormal Lab Results - Last 24 Hours (Table) 06/26/23 06/26/23 06/27/23 Range/Units 19:29 19:29 07:32 WBC 11.8 H (3.8-10.6) k/uL RBC 4.18 L (4.30-5.90) m/uL Hgb 18.7 H (13.0-17.5) gm/dL Neutrophils # 8.4 H (1.3-7.7) k/uL Sodium 136 L (137-145) mmol/L Potassium 3.1 L (3.5-5.1) mmol/L Chloride 96 L (98-107) mmol/L Carbon Dioxide 21 L (22-30) mmol/L Glucose 116 H (74-99) mg/dL Calcium (8.4-10.2) mg/dL ALT 61 H (4-49) U/L Total Protein 8.7 H (6.3-8.2) g/dL Albumin 5.3 H (3.5-5.0) g/dL 06/27/23 Range/Units 07:32 WBC (3.8-10.6) k/uL RBC (4.30-5.90) m/uL Hgb (13.0-17.5) gm/dL Neutrophils # (1.3-7.7) k/uL Sodium 133 L (137-145) mmol/L Potassium (3.5-5.1) mmol/L Chloride (98-107) mmol/L Carbon Dioxide 18 L (22-30) mmol/L Glucose (74-99) mg/dL Calcium 8.0 L (8.4-10.2) mg/dL ALT (4-49) U/L Total Protein 5.8 L (6.3-8.2) g/dL Albumin 3.2 L (3.5-5.0) g/dL Diabetes panel 06/26/23 06/27/23 Range/Units 19:29 07:32 Sodium 136 L 133 L (137-145) mmol/L Potassium 3.1 L 3.7 (3.5-5.1) mmol/L Chloride 96 L 104 (98-107) mmol/L Carbon Dioxide 21 L 18 L (22-30) mmol/L BUN 18 14 (9-20) mg/dL Creatinine 0.90 0.75 (0.66-1.25) mg/dL Glucose 116 H 88 (74-99) mg/dL Calcium 10.2 8.0 L (8.4-10.2) mg/dL AST 38 32 (17-59) U/L ALT 61 H 38 (4-49) U/L Alkaline Phosphatase 74 49 (38-126) U/L Total Protein 8.7 H 5.8 L (6.3-8.2) g/dL Albumin 5.3 H 3.2 L (3.5-5.0) g/dL Calcium panel 06/26/23 06/27/23 Range/Units 19:29 07:32 Calcium 10.2 8.0 L (8.4-10.2) mg/dL Phosphorus 3.0 (2.5-4.5) mg/dL Albumin 5.3 H 3.2 L (3.5-5.0) g/dL Pituitary panel 06/26/23 06/27/23 Range/Units 19:29 07:32 Sodium 136 L 133 L (137-145) mmol/L Potassium 3.1 L 3.7 (3.5-5.1) mmol/L Chloride 96 L 104 (98-107) mmol/L Carbon Dioxide 21 L 18 L (22-30) mmol/L BUN 18 14 (9-20) mg/dL Creatinine 0.90 0.75 (0.66-1.25) mg/dL Glucose 116 H 88 (74-99) mg/dL Calcium 10.2 8.0 L (8.4-10.2) mg/dL Adrenal panel 06/26/23 06/27/23 Range/Units 19:29 07:32 Sodium 136 L 133 L (137-145) mmol/L Potassium 3.1 L 3.7 (3.5-5.1) mmol/L Chloride 96 L 104 (98-107) mmol/L Carbon Dioxide 21 L 18 L (22-30) mmol/L BUN 18 14 (9-20) mg/dL Creatinine 0.90 0.75 (0.66-1.25) mg/dL Glucose 116 H 88 (74-99) mg/dL Calcium 10.2 8.0 L (8.4-10.2) mg/dL Total Bilirubin 1.2 1.0 (0.2-1.3) mg/dL AST 38 32 (17-59) U/L ALT 61 H 38 (4-49) U/L Alkaline Phosphatase 74 49 (38-126) U/L Total Protein 8.7 H 5.8 L (6.3-8.2) g/dL Albumin 5.3 H 3.2 L (3.5-5.0) g/dL
[2023-06-28] MEDS: ONDANSETRON 4 MG/2 ML VIAL IVP PRN ×2 (00:36→09:08)
[2023-06-28] MEDS: SODIUM CHLORIDE 0.9% 1,000 ML IV SCH ×2 (04:20→07:40)
[2023-06-28] MEDS: MORPHINE SULFATE 4 MG/ML SYRINGE IV PRN ×2 (06:46→12:11)
[2023-06-28] MEDS: PANTOPRAZOLE 40 MG/10 ML VIAL IV SCH (09:04)
[2023-06-28 11:16] LABS: BUN/Creat Ratio 9.12 Ratio (12.00-20.00); Blood Urea Nitrogen 7.3 mg/dL (9.0-27.0); Calcium 8.1 mg/dL (8.7-10.3); Carbon Dioxide 22.4 mmol/L (21.6-31.8); Chloride 109 mmol/L (96-109); Glucose 84 mg/dL (70-110); Potassium 3.6 mmol/L (3.5-5.5); Sodium 142 mmol/L (135-145)
--- NOTE | 2023-06-28 13:03 | P.PN ---
Subjective Progress Note Date: 06/28/23 patient is a 57-year-old gentleman with past medical history significant for bowel resection, history of bowel obstruction who presented to the ER because of abdominal pain. Patient stated he was all right 5 days back when he started that he was getting generalized abdominal pain. Patient also hasn't had a bowel movement for the last 1 week, patient was complaining of nausea associated with vomiting. Denied any fever or chills. Denies any chest pain or shortness of breath. Patient stated that he normally gets these symptom once a year. Because of the symptoms, patient came to the ER Initial lab work done in the ER showed WBC 10.8, hemoglobin 18.7, platelet count 252, sodium 136, potassium 3.1, BUNs 18, creatinine 0.90, AST 38, AST 61 KUB x-ray showed nonspecific nonobstructive bowel gas pattern CT abdominal and pelvis done showed fatty liver, no renal calculus or hy dronephrosis, no bowel obstructions, Patient admitted to medicine service 06/28. Patient seen and examined. States abdominal pain is improved, had a bowel movement this morning. Currently on clear liquid diet REVIEW OF SYSTEMS: CONSTITUTIONAL: No fever, no malaise,. CARDIOVASCULAR: No chest pain, no palpitations, no syncope. PULMONARY: No shortness of breath, no cough, GASTROINTESTINAL: no nausea, no vomiting, NEUROLOGICAL: No headaches, no weakness, PHYSICAL EXAMINATION: GENERAL: The patient is alert and oriented x3, not in any acute distress. Well developed, well nourished. HEENT: Pupils are round and equally reacting to light. EOMI. No scleral icterus. No conjunctival pallor. Normocephalic, atraumatic. No pharyngeal erythema. No thyromegaly. CARDIOVASCULAR: S1 and S2 present. No murmurs, rubs, or gallops. PULMONARY: Chest is clear to auscultation, no wheezing or crackles. ABDOMEN: Soft, nontender, nondistended, normoactive bowel sounds. No palpable organomegaly. MUSCULOSKELETAL: No joint swelling or deformity. EXTREMITIES: No cyanosis, clubbing, or pedal edema. NEUROLOGICAL: Gross neurological examination did not reveal any focal deficits. SKIN: No rashes. Assessment and plan Nausea and vomiting Abdominal pain Hypokalemia Hyponatremia Monitor vital signs Monitor CBC Monitor CMP Continue IV fluids Continue antiemetics Continue pain management Advance diet as tolerated, currently on clear liquid diet Surgery following Labs and medication were reviewed.. Continue same treatment. Continue with symptomatic treatment. Resume home medication. Monitor labs and vitals. DVT and GI prophylaxis. Further recommendations as per clinical course of the patient Dictation was produced using [employer] dictation software. please excuse any grammatical, word or spelling errors. Objective - Vital Signs Vital signs: Vital Signs Temp 97.8 F 06/28/23 07:00 Pulse 72 06/28/23 07:00 Resp 19 06/28/23 07:00 BP 113/66 06/28/23 07:00 Pulse Ox 100 06/28/23 07:00 FiO2 Intake & Output 06/27/23 06/28/23 06/28/23 18:59 06:59 18:59 Intake Total 590 Output Total 600 Balance -10 Weight 58.967 kg Intake: Oral 590 Output: Urine 600 Other: # Voids 2 - Labs CBC & Chem 7: 06/27/23 07:32 06/28/23 06:22
[2023-06-28 15:01] VITALS: BP 137/76; PULSE 60; RESP 18; TEMP 98.1
--- NOTE | 2023-06-28 15:09 | P.PN ---
Subjective Progress Note Date: 06/28/23 CHIEF COMPLAINT: Abdominal pain HISTORY OF PRESENT ILLNESS: Patient reports having a small hard bowel movement. He is having a lot of flatus. Tolerated clear liquids. He did have abdominal pain earlier this morning. But that has now resolved. Afebrile. PHYSICAL EXAM: VITAL SIGNS: Reviewed GENERAL: Well-developed in no acute distress. HEENT: No sclera icterus. Extraocular movements grossly intact. Moist buccal mucosa. Head is atraumatic, normocephalic. Hears conversational speech. No nasal drainage. NECK: Supple without lymphadenopathy. CHEST: Non-labored respirations and equal bilateral excursions. CARDIOVASCULAR: Palpable 2+ radial pulses. ABDOMEN: Soft. Nondistended. Nontender. MUSCULOSKELETAL: No clubbing or cyanosis. NEUROLOGIC: No focal or lateralizing signs. Cranial nerves II through XII grossly intact. PSYCH: Appropriate affect. Alert and oriented to person, place and time. SKIN: Well perfused. Good skin turgor. ASSESSMENT: 1. Abdominal pain with nausea and vomiting 2. Hypokalemia 3. Hyponatremia 4. Constipation 5. Possible abdominal adhesions 6. History of a sigmoid volvulus with bowel resection in July 2012 PLAN: -Patient can be discharged from surgical standpoint with outpatient follow-up -Advance diet as tolerated -Recommend stool softeners Physician Senior Clinician note has been reviewed by physician. Signing provider agrees with the documented findings, assessment, and plan of care. Objective - Vital Signs Vital signs: Vital Signs Temp 97.8 F 06/28/23 07:00 Pulse 72 06/28/23 07:00 Resp 19 06/28/23 07:00 BP 113/66 06/28/23 07:00 Pulse Ox 100 06/28/23 07:00 FiO2 Intake & Output 06/27/23 06/28/23 06/28/23 18:59 06:59 18:59 Intake Total 590 Output Total 600 Balance -10 Weight 58.967 kg Intake: Oral 590 Output: Urine 600 Other: # Voids 2 - Labs CBC & Chem 7: 06/27/23 07:32 06/28/23 06:22 Labs: Abnormal Lab Results - Last 24 Hours (Table) 06/28/23 Range/Units 06:22 BUN 7.3 L (9.0-27.0) mg/dL BUN/Creatinine Ratio 9.12 L (12.00-20.00) Ratio Calcium 8.1 L (8.7-10.3) mg/dL
== END 2023-06-28 17:13 | disposition home or self-care (01) ==
LOC: EC 18:23 → 6NMEDSUR 23:58 → 5NMEDONC 06-27 17:15
PROVIDERS: ADMIT Hospitalist; ATTEND Hospitalist
DX: R10.9 Unspecified abdominal pain (principal); R11.2 Nausea with vomiting, unspecified; E86.0 Dehydration; E87.6 Hypokalemia; E87.1 Hypo-osmolality and hyponatremia; K59.00 Constipation, unspecified; F41.9 Anxiety disorder, unspecified; F17.200 Nicotine dependence, unspecified, uncomplicated
CPT/HCPCS: 96376 ×3; 96361 ×2; 96365; 96366; 96375 ×2; 99285; 36415; 80053 ×2; 80048; 82150; 83690; 83735; 84100; 84484; 85025 ×2; 74018; 74177; G0378 ×4; S4990; J2270 ×3; J3480; J2405 ×3; C9113 ×2; Q9967

== ENCOUNTER 2024-04-30 14:52 | Emergency (ER) | payer MEDICARE, OTHER ==
--- NOTE | 2024-04-30 15:14 | ED ---
Nausea/Vomiting/Diarrhea HPI - General Chief complaint: Nausea/Vomiting/Diarrhea Stated complaint: N/V Time Seen by Provider: 04/30/24 15:00 Source: patient, EMS, RN notes reviewed Mode of arrival: EMS Limitations: no limitations - History of Present Illness Initial comments: This is a 58-year-old male who presents to the emergency department for nausea and vomiting. States that it started 5 days ago. He went to [facility] yesterday and was given a prescription for Zofran, but states that this has not been effective and he continues to vomit. He has generalized abdominal pain from all of the vomiting. He had some diarrhea when this first started, however this has since resolved. Denies any fevers/chills or sick contacts. MD complaint: nausea, vomiting - Related Data Previous Rx's Medication Instructions Recorded Ondansetron [Zofran] 4 mg PO Q8HR PRN #20 tab 06/28/23 Promethazine Suppository 25 mg RECTAL QID PRN #15 supp 04/30/24 [Phenergan] Allergies Allergy/AdvReac Type Severity Reaction Status Date / Time No Known Allergies Allergy Verified 04/30/24 17:34 Review of Systems ROS Statement: Those systems with pertinent positive or pertinent negative responses have been documented in the HPI. ROS Other: All systems not noted in ROS Statement are negative. Past Medical History Past Medical History: Renal Disease Additional Past Medical History / Comment(s): Diagnosed with "twisted bowel" in 2011, bowel resection 07/19/2012, history of acute renal failure related to d ehydration, History of Any Multi-Drug Resistant Organisms: None Reported Past Surgical History: Bowel Resection, Hernia Repair Additional Past Surgical History / Comment(s): Volvulus, Last eye surgery 09/21/2017 lens repair, 12/2016 retinal reattachment surgery. Past Anesthesia/Blood Transfusion Reactions: No Reported Reaction Past Psychological History: Anxiety Smoking Status: Current every day smoker Past Alcohol Use History: Rare Past Drug Use History: Marijuana - Past Family History Father Family Medical History: CVA/TIA Additional Family Medical History / Comment(s): Patient's father at the age of 8080 years old from "organ failure." Mother Family Medical History: Diabetes Mellitus, Hypertension Additional Family Medical History / Comment(s): Patient's mother passedy away "of old age" per patient. General Exam Limitations: no limitations General appearance: alert, in distress Head exam: Present: atraumatic, normocephalic, normal inspection Respiratory exam: Present: normal lung sounds bilaterally. Absent: respiratory distress, wheezes, rales, rhonchi, stridor Cardiovascular Exam: Present: regular rate, normal rhythm, normal heart sounds. Absent: systolic murmur, diastolic murmur, rubs, gallop, clicks GI/Abdominal exam: Present: soft, normal bowel sounds. Absent: distended, tenderness, guarding, rebound, rigid Neurological exam: Present: alert, oriented X3, CN II-XII intact Psychiatric exam: Present: normal affect, normal mood Skin exam: Present: warm, dry, intact, normal color. Absent: rash Course Vital Signs 04/30/24 04/30/24 04/30/24 14:57 16:32 19:05 Temperature 99.1 F 98.2 F Pulse Rate 79 69 76 Respiratory 22 20 16 Rate Blood Pressure 169/77 160/78 130/77 O2 Sat by Pulse 97 100 98 Oximetry Medical Decision Making - Medical Decision Making This is a 58 year old male who presents to the emergency department for nausea and vomiting. Was pt. sent in by a medical professional or institution? @ -No Did you speak to anyone other than the patient for history? @ -No Did you review nursing and triage notes? @ -Yes, and I agree, it is accurate with regards to the patient's symptoms. Were old charts reviewed? @ -No Differential Diagnosis? @ -Differential Nausea and Vomiting: Gastroenteritis, cholecystitis, appendicitis, pancreatitis, migraine, benign positional vertigo, food borne illness, pyelonephritis, irritable bowel syndrome, influenza, Covid, GERD, incarcerated hernia, intestinal obstruction, this is not meant to be an all-inclusive list. EKG interpreted by me (3pts min.)? @ -Not obtained X-rays interpreted by me (1pt min.)? @ -Not obtained CT interpreted by me (1pt min.)? @ -Not obtained U/S interpreted by me (1pt. min.)? @ -Not obtained What testing was considered but not performed? (CT, X-rays, U/S, labs)? Why? @ -None What meds were considered but not given? Why? @ -None Did you discuss the management of the patient with other professionals? @ -No Did you reconcile home meds? @ -No Was smoking cessation discussed for >3mins.? @ -I discussed smoking cessation for greater than 3 minutes. The risk of smoking were discussed with the patient including but not limited to risks of cancer, stroke, coronary artery disease and COPD. Also discussed with patient were multiple methods of quitting smoking. Lastly we discussed the financial cost of smoking. Was critical care preformed (if so, how long)? @ -No Were there social determinants of health that impacted care today? How? (Homelessness, low income, unemployed, alcoholism, drug addiction, transportation, low edu. Level, literacy, decrease access to med. care, fdc, rehab)? @ -No Was there de-escalation of care discussed even if they declined? (Discuss DNR or withdrawal of care, Hospice)? @ -No What co-morbidities impacted this encounter? (DM, HTN, Smoking, COPD, CAD, Cancer, CVA, Hep., AIDS, mental health diagnosis, sleep apnea, morbid obesity)? @ -Smoking Was patient admitted / discharged? @ -Discharged. Lab work demonstrates mild leukocytosis of 11.9. He also has mild hypokalemia with a potassium of 3.4. COVID, influenza, and RSV testing negative. Urinalysis negative for signs of infection. Symptoms are all related to nausea and vomiting. He did not have any abdominal pain aside from the discomfort related to retching. Patient treated with IV fluids and antiemetics with improvement in symptoms. He was tolerating oral intake afterwards. He was wandering around the emergency department with popsicles and exhibiting no distress. He already has a prescription for Zofran at home. Prescription for Phenergan suppositories provided as well to see if that offers any additional benefit. Patient discharged home in stable condition. Case discussed with ED attending Dr. Boland. Return precautions reviewed in depth, the patient is instructed to return to the emergency department with any new, worsening, or concerning symptoms. Patient verbalized understanding. Undiagnosed new problem with uncertain prognosis? @ -None Drug Therapy requiring intensive monitoring for toxicity (Heparin, Nitro, Insulin, Cardizem)? @ -None Were any procedures done? @ -None Diagnosis/symptom? @ -Nausea and vomiting Acute, or Chronic, or Acute on Chronic? @ -Acute Uncomplicated (without systemic symptoms) or Complicated (systemic symptoms)? @ -Uncomplicated Side effects of treatment? @ -None Exacerbation, Progression, or Severe Exacerbation] @ -Not applicable Poses a threat to life or bodily function? @ -No - Lab Data Result diagrams: 04/30/24 15:35 04/30/24 15:35 Lab Results 04/30/24 04/30/24 04/30/24 Range/Units 15:35 15:35 15:35 WBC 11.9 H (3.8-10.6) k/uL RBC 5.30 (4.30-5.90) m/uL Hgb 16.7 (13.0-17.5) gm/dL Hct 49.8 (39.0-53.0) % MCV 94.1 (80.0-100.0) fL MCH 31.5 (25.0-35.0) pg MCHC 33.5 (31.0-37.0) g/dL RDW 12.2 (11.5-15.5) % Plt Count 273 (150-450) k/uL MPV 7.3 Neutrophils % 82 % Lymphocytes % 11 % Monocytes % 4 % Eosinophils % 1 % Basophils % 0 % Neutrophils # 9.8 H (1.3-7.7) k/uL Lymphocytes # 1.3 (1.0-4.8) k/uL Monocytes # 0.5 (0-1.0) k/uL Eosinophils # 0.1 (0-0.7) k/uL Basophils # 0.0 (0-0.2) k/uL Sodium 140 (137-145) mmol/L Potassium 3.4 L (3.5-5.1) mmol/L Chloride 103 (98-107) mmol/L Carbon Dioxide 24 (22-30) mmol/L Anion Gap 13 mmol/L BUN 15 (9-20) mg/dL Creatinine 0.96 (0.66-1.25) mg/dL Est GFR (CKD-EPI)AfAm >90 (>60 ml/min/1.73 sqM) Est GFR (CKD-EPI)NonAf 86 (>60 ml/min/1.73 sqM) Glucose 127 H (74-99) mg/dL Plasma Lactic Acid Gianluca 2.0 (0.7-2.0) mmol/L Calcium 10.1 (8.4-10.2) mg/dL Phosphorus 3.8 (2.5-4.5) mg/dL Magnesium 2.1 (1.6-2.3) mg/dL Total Bilirubin 1.4 H (0.2-1.3) mg/dL AST 44 (17-59) U/L ALT 38 (4-49) U/L Alkaline Phosphatase 58 (38-126) U/L Total Protein 7.5 (6.3-8.2) g/dL Albumin 4.8 (3.5-5.0) g/dL Amylase 73 (30-110) U/L Lipase 88 (23-300) U/L Urine Color Urine Appearance (Clear) Urine pH (5.0-8.0) Ur Specific [place] (1.001-1.035) Urine Protein (Negative) Urine Glucose (UA) (Negative) Urine Ketones (Negative) Urine Blood (Negative) Urine Nitrite (Negative) Urine Bilirubin (Negative) Urine Urobilinogen (<2.0) mg/dL Ur Leukocyte Esterase (Negative) Urine RBC (0-5) /hpf Urine WBC (0-5) /hpf Ur Squamous Epith Cells (0-4) /hpf Hyaline Casts (0-2) /lpf Urine Mucus (None) /hpf Influenza Type A (PCR) (Not Detectd) Influenza Type B (PCR) (Not Detectd) RSV (PCR) (Not Detectd) SARS-CoV-2 (PCR) (Not Detectd) 04/30/24 04/30/24 Range/Units 15:35 18:45 WBC (3.8-10.6) k/uL RBC (4.30-5.90) m/uL Hgb (13.0-17.5) gm/dL Hct (39.0-53.0) % MCV (80.0-100.0) fL MCH (25.0-35.0) pg MCHC (31.0-37.0) g/dL RDW (11.5-15.5) % Plt Count (150-450) k/uL MPV Neutrophils % % Lymphocytes % % Monocytes % % Eosinophils % % Basophils % % Neutrophils # (1.3-7.7) k/uL Lymphocytes # (1.0-4.8) k/uL Monocytes # (0-1.0) k/uL Eosinophils # (0-0.7) k/uL Basophils # (0-0.2) k/uL Sodium (137-145) mmol/L Potassium (3.5-5.1) mmol/L Chloride (98-107) mmol/L Carbon Dioxide (22-30) mmol/L Anion Gap mmol/L BUN (9-20) mg/dL Creatinine (0.66-1.25) mg/dL Est GFR (CKD-EPI)AfAm (>60 ml/min/1.73 sqM) Est GFR (CKD-EPI)NonAf (>60 ml/min/1.73 sqM) Glucose (74-99) mg/dL Plasma Lactic Acid Gianluca (0.7-2.0) mmol/L Calcium (8.4-10.2) mg/dL Phosphorus (2.5-4.5) mg/dL Magnesium (1.6-2.3) mg/dL Total Bilirubin (0.2-1.3) mg/dL AST (17-59) U/L ALT (4-49) U/L Alkaline Phosphatase (38-126) U/L Total Protein (6.3-8.2) g/dL Albumin (3.5-5.0) g/dL Amylase (30-110) U/L Lipase (23-300) U/L Urine Color Yellow Urine Appearance Clear (Clear) Urine pH 5.5 (5.0-8.0) Ur Specific [place] 1.024 (1.001-1.035) Urine Protein 1+ H (Negative) Urine Glucose (UA) Negative (Negative) Urine Ketones 1+ H (Negative) Urine Blood Small H (Negative) Urine Nitrite Negative (Negative) Urine Bilirubin Negative (Negative) Urine Urobilinogen 2.0 (<2.0) mg/dL Ur Leukocyte Esterase Negative (Negative) Urine RBC 1 (0-5) /hpf Urine WBC 6 H (0-5) /hpf Ur Squamous Epith Cells <1 (0-4) /hpf Hyaline Casts 3 H (0-2) /lpf Urine Mucus Many H (None) /hpf Influenza Type A (PCR) Not Detected (Not Detectd) Influenza Type B (PCR) Not Detected (Not Detectd) RSV (PCR) Not Detected (Not Detectd) SARS-CoV-2 (PCR) Not Detected (Not Detectd) Disposition Clinical Impression: Nausea and vomiting, Nicotine dependence Disposition: HOME SELF-CARE Instructions (If sedation given, give patient instructions): Acute Nausea and Vomiting (ED) Additional Instructions: Return to the emergency department with any new, worsening, or concerning symptoms. You can use the Phenergan suppositories up to every 6 hours as needed for nausea and vomiting. You can also take this with the Zofran up to every 8 hours. Slowly advance your diet as tolerated and remain well-hydrated. Follow up with your primary care provider in 1-2 days. Prescriptions: Promethazine Suppository [Phenergan] 25 mg RECTAL QID PRN #15 supp PRN Reason: Nausea And Vomiting Is patient prescribed a controlled substance at d/c from ED?: No Referrals: None,Stated [Primary Care Provider] - 1-2 days Time of Disposition: 18:52
[2024-04-30 15:51] LABS: Basophils % (A) 0 %; Eosinophils # (A) 0.1 k/uL (0-0.7); Eosinophils % (A) 1 %; HCT 49.8 % (39.0-53.0); HGB 16.7 gm/dL (13.0-17.5); Lymphocytes # (A) 1.3 k/uL (1.0-4.8); Lymphocytes % (A) 11 %; MCH 31.5 pg (25.0-35.0); MCHC 33.5 g/dL (31.0-37.0); MCV 94.1 fL (80.0-100.0); Mean Platelet Volume 7.3; Monocytes # (A) 0.5 k/uL (0-1.0); Monocytes % (A) 4 %; Neutrophils # (A) 9.8 k/uL (1.3-7.7); Neutrophils % (A) 82 %; Platelet Count 273 k/uL (150-450); RDW 12.2 % (11.5-15.5); WBC 11.9 k/uL (3.8-10.6)
[2024-04-30] MEDS: METOCLOPRAMIDE 5 MG/ML 2 ML VIAL IVP STA (15:51)
[2024-04-30] MEDS: ONDANSETRON 4 MG/2 ML VIAL IVP STA (15:51)
[2024-04-30] MEDS: FAMOTIDINE 20 MG/2 ML VIAL IV STA (15:52)
[2024-04-30] MEDS: SODIUM CHLORIDE 0.9% 1,000 ML IV STA ×2 (15:52→18:19)
[2024-04-30 16:01] LABS: ALT 38 U/L (4-49); AST 44 U/L (17-59); African American GFR (CKD) >90 (>60 ml/min/1.73 sqM); Albumin 4.8 g/dL (3.5-5.0); Alkaline Phosphatase 58 U/L (38-126); Amylase 73 U/L (30-110); Anion Gap 13 mmol/L; Blood Urea Nitrogen 15 mg/dL (9-20); Calcium 10.1 mg/dL (8.4-10.2); Carbon Dioxide 24 mmol/L (22-30); Chloride 103 mmol/L (98-107); Glucose 127 mg/dL (74-99); Lipase 88 U/L (23-300); Magnesium 2.1 mg/dL (1.6-2.3); Non-African American GFR(CKD) 86 (>60 ml/min/1.73 sqM); Phosphorus 3.8 mg/dL (2.5-4.5); Potassium 3.4 mmol/L (3.5-5.1); Sodium 140 mmol/L (137-145); Total Bilirubin 1.4 mg/dL (0.2-1.3); Total Protein 7.5 g/dL (6.3-8.2)
[2024-04-30] MEDS: HYDROmorphone 1 MG/ML 1 ML SYRINGE IVP STA (16:34)
[2024-04-30] MEDS: PROCHLORPERAZINE INJ 10 MG/2 ML VIAL IVP STA (16:37)
[2024-04-30 19:15] VITALS: BP 130/77; PULSE 76; RESP 16; TEMP 98.2
[2024-04-30 19:16] LABS: Appearance,Urine Clear (Clear); Bilirubin,Urine Negative (Negative); Blood,Urine Small (Negative); Color,Urine Yellow; Glucose,Urine (UA) Negative (Negative); Hyaline Casts,Urine 3 /lpf (0-2); Ketones,Urine 1+ (Negative); Leukocyte Esterase,Urine Negative (Negative); Mucus,Urine Many /hpf; Nitrite,Urine Negative (Negative); PH, Urine 5.5 (5.0-8.0); Protein,Urine 1+ (Negative); RBC,Urine 1 /hpf (0-5); Specific Gravity,Urine 1.024 (1.001-1.035); Squamous Epithelial Cell,Urine <1 /hpf (0-4); WBC,Urine 6 /hpf (0-5)
== END 2024-04-30 19:15 | disposition home or self-care (01) ==
LOC: EC 14:52
DX: R11.2 Nausea with vomiting, unspecified (principal); F17.200 Nicotine dependence, unspecified, uncomplicated; F17.290 Nicotine dependence, other tobacco product, uncomplicated; Z11.52 Encounter for screening for COVID-19
CPT/HCPCS: 36415; 80053; 82150; 83605; 83690; 83735; 84100; 85025; 81001; 87636; 99284; 96374; 96375; 96361; J0780; J2765; J2405; J3490; J1171

== ENCOUNTER 2024-10-22 09:30 | Inpatient (IN) | payer MEDICARE, OTHER ==
--- NOTE | 2024-10-22 10:00 | ED ---
Chest Pain HPI - General Chief Complaint: Chest Pain Stated Complaint: chest pain,back pain, left arm numb Time Seen by Provider: 10/22/24 09:39 Source: patient, RN notes reviewed Mode of arrival: ambulatory Limitations: no limitations - History of Present Illness Initial Comments: This is a 58 year old male who presents to the emergency department for chest pain. States that around 4am he developed centralized chest pain radiating into the back and epigastric region with associated nausea and vomiting. The pain is described as a pressure sensation. He has associated shortness of breath. Denies any history of cardiac problems or similar symptoms in the past. He does have a history of multiple GI issues, but states that this feels very different. He states that his left arm is also painful. MD Complaint: chest pain - Related Data Home Medications Medication Instructions Recorded Confirmed No Known Home Medications 10/22/24 10/22/24 Allergies Allergy/AdvReac Type Severity Reaction Status Date / Time No Known Allergies Allergy Verified 10/22/24 11:06 Review of Systems ROS Statement: Those systems with pertinent positive or pertinent negative responses have been documented in the HPI. ROS Other: All systems not noted in ROS Statement are negative. Past Medical History Past Medical History: Renal Disease Additional Past Medical History / Comment(s): Diagnosed with "twisted bowel" in 2011, bowel resection 07/19/2012, history of acute renal failure related to dehydration, History of Any Multi-Drug Resistant Organisms: None Reported Past Surgical History: Bowel Resection, Hernia Repair Additional Past Surgical History / Comment(s): Volvulus, Last eye surgery 09/21/2017 lens repair, 12/2016 retinal reattachment surgery. Past Anesthesia/Blood Transfusion Reactions: No Reported Reaction Past Psychological History: Anxiety Smoking Status: Current every day smoker Past Alcohol Use History: Rare Past Drug Use History: Marijuana - Past Family History Father Family Medical History: CVA/TIA Additional Family Medical History / Comment(s): Patient's father at the age of 8080 years old from "organ failure." Mother Family Medical History: Diabetes Mellitus, Hypertension Additional Family Medical History / Comment(s): Patient's mother passedy away "of old age" per patient. General Exam Limitations: no limitations General appearance: alert, in no apparent distress Head exam: Present: atraumatic, normocephalic, normal inspection Respiratory exam: Present: normal lung sounds bilaterally. Absent: respiratory distress, wheezes, rales, rhonchi, stridor Cardiovascular Exam: Present: regular rate, normal rhythm GI/Abdominal exam: Present: soft, tenderness (Epigastric). Absent: distended Neurological exam: Present: alert, oriented X3, CN II-XII intact Psychiatric exam: Present: normal affect, normal mood Skin exam: Present: warm, dry, intact, normal color. Absent: rash Course Vital Signs 10/22/24 10/22/24 10/22/24 09:33 09:43 10:52 Temperature 97 F L Pulse Rate 66 68 66 Respiratory 20 18 20 Rate Blood Pressure 150/74 145/70 143/80 O2 Sat by Pulse 99 100 98 Oximetry 10/22/24 12:38 Temperature 98.3 F Pulse Rate 61 Respiratory 22 Rate Blood Pressure 126/73 O2 Sat by Pulse 99 Oximetry Chest Pain MDM - MDM This is a 58-year-old male who presents to the emergency department for chest pain and shortness of breath. Was pt. sent in by a medical professional or institution? @ -No Did you speak to anyone other than the patient for history? @ -No Did you review nursing and triage notes? @ -Yes, and I agree, it is accurate with regards to the patient's symptoms. Were old charts reviewed? @ -No Differential Diagnosis? @ -Differential Chest Pain: Stable Angina, Unstable Angina, STEMI, NSTEMI Aortic Dissection, Pneumothorax, Musculoskeletal, Esophageal Spasm GERD, Cholecystitis, Pancreatitis, Zoster, this is not meant to be an all-inclusive list. EKG interpreted by me (3pts min.)? @ -EKG interpreted by me demonstrating the following: Sinus rhythm. Ventricular rate 76 bpm, TX interval 144 ms, QRS duration 85 ms, QTc 420 ms. X-rays interpreted by me (1pt min.)? @ -Chest x-ray obtained, my interpretation identifies no localized consolidations or infiltrates. CT interpreted by me (1pt min.)? @ -CT scan of the abdomen and pelvis obtained. My interpretation identifies fluid overlying the pancreatic body. U/S interpreted by me (1pt. min.)? @ -Gallbladder ultrasound obtained. My interpretation identifies no cholelithiasis. What testing was considered but not performed? (CT, X-rays, U/S, labs)? Why? @ -None What meds were considered but not given? Why? @ -None Did you discuss the management of the patient with other professionals? @ -Yes, Dr. Penaloza, who accepts the patient for admission Did you reconcile home meds? @ -Yes Was smoking cessation discussed for >3mins.? @ -I discussed smoking cessation for greater than 3 minutes. The risk of smoking were discussed with the patient including but not limited to risks of cancer, stroke, coronary artery disease and COPD. Also discussed with patient were multiple methods of quitting smoking. Lastly we discussed the financial cost of smoking. Was critical care preformed (if so, how long)? @ -No Were there social determinants of health that impacted care today? How? (Homelessness, low income, unemployed, alcoholism, drug addiction, transportation, low edu. Level, literacy, decrease access to med. care, retirement, rehab)? @ -No Was there de-escalation of care discussed even if they declined? (Discuss DNR or withdrawal of care, Hospice)? @ -No What co-morbidities impacted this encounter? (DM, HTN, Smoking, COPD, CAD, Cancer, CVA, Hep., AIDS, mental health diagnosis, sleep apnea, morbid obesity)? @ -Smoking Was patient admitted / discharged? @ -Admitted. When the patient arrived we did a trial of aspirin and nitroglycerin, however this was not effective for the chest pain. Lab work dem onstrates a mildly elevated lactic acid of 2.1 and is otherwise unremarkable. D-dimer and troponin negative. Chest x-ray reveals no acute process. CT scan of the abdomen and pelvis demonstrates acute interstitial edematous pancreatitis with a possible developing small pseudocyst. Pancreatic enzymes and liver enzymes are both within normal limits. No obvious gallstones or other irregularities are noted on CT scan. Patient denies any history of pancreatitis. Denies any alcohol use. Gallbladder ultrasound then obtained revealing no evidence of cholelithiasis. He did continue to be in a fair amount of distress after several doses of pain and nausea medication. Patient admitted to medicine for pancreatitis. While the initial chest pain is likely related to pancreatitis, serial troponins were ordered in the event of an associated cardiac process. Consult placed for GI regarding pancreatitis. Case discussed with ED attending Dr. Olivera. Undiagnosed new problem with uncertain prognosis? @ -None Drug Therapy requiring intensive monitoring for toxicity (Heparin, Nitro, Insulin, Cardizem)? @ -None Were any procedures done? @ -None Diagnosis/symptom? @ -Pancreatitis, intractable abdominal pain Acute, or Chronic, or Acute on Chronic? @ -Acute Uncomplicated (without systemic symptoms) or Complicated (systemic symptoms)? @ -Complicated Side effects of treatment? @ -None Exacerbation, Progression, or Severe Exacerbation] @ -Not applicable Poses a threat to life or bodily function? @ -Yes, patient unable to function in his current state Disposition Clinical Impression: Pancreatitis, Intractable abdominal pain, Nausea and vomiting, Nicotine dependence Disposition: ADMITTED IP TO THIS HOSP
[2024-10-22] MEDS: ASPIRIN 81 MG PO STA (10:14)
[2024-10-22] MEDS: NITROGLYCERIN SL TABS 0.4 MG TAB SUBLINGUAL STA (10:15)
[2024-10-22] MEDS: SODIUM CHLORIDE 0.9% 1,000 ML IV ONE (10:16)
[2024-10-22] MEDS: ONDANSETRON 4 MG/2 ML VIAL IVP STA ×2 (10:18→12:33)
[2024-10-22 10:24] LABS: Basophils # (A) 0.05 10*3/uL (0.00-0.10); Basophils % (A) 0.5 %; Eosinophils # (A) 0.01 10*3/uL (0.04-0.35); Eosinophils % (A) 0.1 %; HCT 44.5 % (39.6-50.0); HGB 15.7 g/dL (13.0-17.0); Lymphocytes # (A) 1.19 10*3/uL (0.90-5.00); Lymphocytes % (A) 12.6 %; MCHC 35.3 g/dL (32.0-37.0); MCV 90.6 fL (80.0-97.0); Mean Platelet Volume 9.2 fL (9.5-12.2); Monocytes # (A) 0.49 10*3/uL (0.20-1.00); Monocytes % (A) 5.2 %; Neutrophils # (A) 7.68 10*3/uL (1.80-7.70); Neutrophils % (A) 81.3 %; Platelet Count 239 10*3/uL (140-440); RBC 4.91 10*6/uL (4.40-5.60); RDW 12.8 % (11.5-14.5); WBC 9.45 10*3/uL (4.50-10.00)
[2024-10-22 10:37] LABS: ALT 16 U/L (4-49); African American GFR (CKD) >90 (>60 ml/min/1.73 sqM); Albumin 4.9 g/dL (3.5-5.0); Amylase 80 U/L (30-110); Anion Gap 10 mmol/L; Blood Urea Nitrogen 13 mg/dL (9-20); Calcium 9.8 mg/dL (8.4-10.2); Carbon Dioxide 25 mmol/L (22-30); Chloride 104 mmol/L (98-107); Glucose 140 mg/dL (74-99); Lipase 253 U/L (23-300); Non-African American GFR(CKD) >90 (>60 ml/min/1.73 sqM); Sodium 139 mmol/L (137-145); Total Bilirubin 0.9 mg/dL (0.2-1.3); Total Protein 8.1 g/dL (6.3-8.2)
[2024-10-22 10:38] LABS: Partial Thromboplastin Time 23.4 sec (22.0-30.0); Prothrombin Time 11.1 sec (10.0-12.5)
[2024-10-22] MEDS: MORPHINE SULFATE 4 MG/ML SYRINGE IVP STA (10:50)
[2024-10-22 10:52] LABS: AST 26 U/L (17-59); Magnesium 1.8 mg/dL (1.6-2.3); Potassium 3.8 mmol/L (3.5-5.1)
[2024-10-22 10:53] LABS: Alkaline Phosphatase 70 U/L (38-126)
--- NOTE | 2024-10-22 12:11 | CT ---
EXAMINATION TYPE: CT abdomen pelvis w con DATE OF EXAM: 10/22/2024 COMPARISON: Prior CT June 26, 2023 CLINICAL INDICATION: Male, 58 years old with history of Abdominal pain, acute, nonlocalized, Abdomina l pain radiating into back. epigastric pain. Hx bowel resection, hernia, volvulus., TECHNIQUE: CT scan of the abdomen and pelvis is performed with IV Contrast, patient injected with 100 ml mL of I sovue 300., (none if empty) Oral contrast used: without Oral Contrast (none if empty) CT DLP: 571.1 mGycm, Automated exposure control for dose reduction was used. FINDINGS: LUNG BASES: No significant abnormality is appreciated. LIVER/GB: No significant abnormality is appreciated. PANCREAS: Heterogeneous enlarged prostate with mild to moderate ill-defined fluid and fat stranding o verlying the mid body. Subtle 1.2 cm nonspecific hypodense area axial image 36 in the body could refl ect focal ductal dilatation or subtle hypodense mass. Follow-up is advised. No well-formed peripancre atic fluid collection. SPLEEN: No significant abnormality is seen. ADRENALS: No significant abnormality is seen. KIDNEYS: Stable 1.8 cm simple thin-walled cyst upper pole of the left kidney delayed axial image 29. BOWEL: Surgical changes sigmoid colon are present. No abnormal small or large bowel dilatation. PROSTATE/SEMINAL VESICLES: No gross abnormality seen. LYMPH NODES: No greater than 1cm abdominal or pelvic lymph nodes are appreciated. OSSEOUS STRUCTURES: Grade 1 retrolisthesis L1 on L2, L2 on L3, and L3 on L4 with moderate to severe m ultilevel disc space narrowing at these levels.. OTHER: Moderate peripheral plaque of the infrarenal abdominal aorta extends into iliac branch vessels . IMPRESSION: CT findings are consistent with acute interstitial edematous pancreatitis as detailed abo ve. Subtle 1.2 cm hypodense area in the central body is noted. Possible developing small pseudocyst. Imaging follow-up after treatment is advised to further evaluate to exclude subtle mass. [facility], , 10/22/2024 12:08 PM
[2024-10-22] MEDS: HYDROmorphone 1 MG/ML 1 ML SYRINGE IVP STA (12:33)
--- NOTE | 2024-10-22 12:57 | XR ---
EXAMINATION TYPE: XR chest 2V DATE OF EXAM: 10/22/2024 CLINICAL INDICATION: Male, 58 years old with history of Chest Pain, TECHNIQUE: Frontal and lateral views of the chest are obtained. COMPARISON: Prior chest x-ray January 28, 2022 FINDINGS: Overlying EKG leads are now present. There is no focal air space opacity, pleural effusion, or pneumo thorax seen. The cardiac silhouette size remains within normal limits. The osseous structures are intact. IMPRESSION: No acute process. [facility], , 10/22/2024 12:55 PM
[2024-10-22] MEDS ORDERED: HYDROmorphone 1 MG/ML 1 ML SYRINGE IVP PRN (13:11)
[2024-10-22] MEDS ORDERED: ACETAMINOPHEN TAB 325 MG TAB PO PRN (13:11)
[2024-10-22] MEDS ORDERED: HYDROcodone/APAP 5-325MG 1 EACH TAB PO PRN (13:11)
[2024-10-22] MEDS ORDERED: NALOXONE 0.4 MG/ML 1 ML VIAL IV PRN (13:11)
[2024-10-22 13:40] LABS: Appearance,Urine Clear (Clear); Bilirubin,Urine Negative (Negative); Blood,Urine Negative (Negative); Color,Urine Yellow; Glucose,Urine (UA) Negative (Negative); Ketones,Urine 1+ (Negative); Leukocyte Esterase,Urine Negative (Negative); Nitrite,Urine Negative (Negative); Protein,Urine Trace (Negative); Urobilinogen,Urine <2.0 mg/dL (<2.0)
[2024-10-22 13:43] LABS: Specific Gravity,Urine >1.050 (1.001-1.035)
--- NOTE | 2024-10-22 13:48 | P.HPIM ---
History of Present Illness This is a pleasant 58 years old male with no significant past medical history he does not follow-up with PCP and he does not take medication at home. Presents because of epigastric abdominal pain of 1 day duration. The patient states the pain in the right upper quadrant going up to the middle of the chest and to the back felt like a knife and twisting sharp about 12/10 in severity on presentation currently 3-4/10 after he received Dilaudid. Associated with frequent vomiting every 15 minutes or more than 10. He had normal bowel movement yesterday. That he denies any specific urinary symptoms or headache dizziness weakness or numbness. He denies any other overt chest pain although he has some cough. No dyspnea. He denies smoking alcohol or illicit drugs. He is afebrile vital stable. Has unremarkable CBC, BMP, LFTs. INR is normal. Troponin is negative. D-dimer is negative at 0.57. EKG showing sinus rhythm at 75. CT of the abdomen pelvis with contrast showing enlarged pancreas with mild to moderate ill-defined fluid and fat stranding in the oral area overlying the mid body of the pancreas with subtle 1.2 cm hypodense area in the body could reflect focal ductal dilatation, hyperdense mass or developing pseudocyst. Chest x-ray is negative for acute process Review of Systems Review of systems CONSTITUTIONAL: No fever, no malaise, no fatigue. HEENT: No recent visual problems or hearing problems. Denied any sore throat. CARDIOVASCULAR: No orthopnea, PND, no palpitations, no syncope. PULMONARY: No shortness of breath, no cough, no hemoptysis. GASTROINTESTINAL: No diarrhea, Normoactive bowel sounds. NEUROLOGICAL: No headaches, no weakness, no numbness. HEMATOLOGICAL: Denies any bleeding or petechiae. GENITOURINARY: Denies any burning micturition, frequency, or urgency. MUSCULOSKELETAL/RHEUMATOLOGICAL: Denies any joint pain, swelling, or any muscle pain. ENDOCRINE: Denies any polyuria or polydipsia. Past Medical History Past Medical History: Renal Disease Additional Past Medical History / Comment(s): Diagnosed with "twisted bowel" in 2011, bowel resection 07/19/2012, history of acute renal failure related to dehydration, History of Any Multi-Drug Resistant Organisms: None Reported Past Surgical History: Bowel Resection, Hernia Repair Additional Past Surgical History / Comment(s): Volvulus, Last eye surgery 09/21/2017 lens repair, 12/2016 retinal reattachment surgery. Past Anesthesia/Blood Transfusion Reactions: No Reported Reaction Past Psychological History: Anxiety Smoking Status: Current every day smoker Past Alcohol Use History: Rare Past Drug Use History: Marijuana - Past Family History Father Family Medical History: CVA/TIA Additional Family Medical History / Comment(s): Patient's father at the age of 8080 years old from "organ failure." Mother Family Medical History: Diabetes Mellitus, Hypertension Additional Family Medical History / Comment(s): Patient's mother passedy away "of old age" per patient. Medications and Allergies Home Medications Medication Instructions Recorded Confirmed Type No Known Home Medications 10/22/24 10/22/24 History Allergies Allergy/AdvReac Type Severity Reaction Status Date / Time No Known Allergies Allergy Verified 10/22/24 11:06 Physical Exam Vitals: Vital Signs Temp Pulse Resp BP Pulse Ox 10/22/24 12:38 98.3 F 61 22 126/73 99 10/22/24 10:52 66 20 143/80 98 10/22/24 09:43 68 18 145/70 100 10/22/24 09:33 97 F L 66 20 150/74 99 Intake and Output 10/21/24 10/22/24 10/22/24 22:59 06:59 14:59 Other: Weight 54.431 kg GENERAL: The patient is alert and oriented x3, not in any acute distress. Well developed, well nourished. HEENT: Pupils are round and equally reacting to light. EOMI. No scleral icterus. No conjunctival pallor. Normocephalic, atraumatic. No pharyngeal erythema. No thyromegaly. CARDIOVASCULAR: S1 and S2 present. No murmurs, rubs, or gallops. PULMONARY: Chest is clear to auscultation, no wheezing , no crackles. -ABDOMEN: Soft, epigastric tenderness, nondistended, normoactive bowel sounds. No palpable organomegaly. MUSCULOSKELETAL: No joint swelling or deformity. EXTREMITIES: No cyanosis, clubbing, or pedal edema. NEUROLOGICAL: Gross neurological examination did not reveal any focal deficits. SKIN: No rashes. no petechiae. Results CBC & Chem 7: 10/22/24 09:43 10/22/24 09:43 Labs: Abnormal Lab Results - Last 24 Hours (Table) 10/22/24 10/22/24 10/22/24 Range/Units 09:43 09:43 09:43 MPV 9.2 L (9.5-12.2) fL Eosinophils # 0.01 L (0.04-0.35) 10*3/uL Glucose 140 H (74-99) mg/dL Plasma Lactic Acid Gianluca 2.1 H* (0.7-2.0) mmol/L Ur Specific [place] (1.001-1.035) Urine Protein (Negative) Urine Ketones (Negative) 10/22/24 Range/Units 12:42 MPV (9.5-12.2) fL Eosinophils # (0.04-0.35) 10*3/uL Glucose (74-99) mg/dL Plasma Lactic Acid Gianluca (0.7-2.0) mmol/L Ur Specific [place] >1.050 H (1.001-1.035) Urine Protein Trace H (Negative) Urine Ketones 1+ H (Negative) Assessment and Plan Assessment: Acute pancreatitis with CT showing Acute interstitial edematous pancreatitis Possible hypodense lesion 1.2 cm in the body of the pancreas could represent developing pseudocyst, dilated duct or hyperdense mass Plan: Continue with IV fluid Pain medication N.p.o. GI team consult Follow-up liver/gallbladder ultrasound Labs and medication were reviewed.. Continue same treatment. Continue with symptomatic treatment. Resume home medication. Monitor labs and vitals. DVT and GI prophylaxis. Further recommendations as per clinical course of the patient DVT prophylaxis: Subcutaneous heparin GI Prophylaxis: Pepcid Prognosis is guarded
[2024-10-22] MEDS: NICOTINE 21MG/24HR PATCH TRANSDERM SCH (14:11)
[2024-10-22] MEDS: SODIUM CHLORIDE 0.9% 1,000 ML IV SCH (14:12)
[2024-10-22 14:56] LABS: Lipase 197 U/L (23-300)
--- NOTE | 2024-10-22 15:40 | US ---
EXAMINATION TYPE: US gallbladder DATE OF EXAM: 10/22/2024 COMPARISON: CT earlier today CLINICAL INDICATION: Male, 58 years old with history of Epigastric pain, pancreatitis on CT; Epigastr ic pain. nausea/vomiting TECHNIQUE: Grayscale and color Doppler imaging of the right upper quadrant was performed. FINDINGS: EXAM MEASUREMENTS: Liver Length: 13.5 cm Gallbladder Wall: 0.2 cm CBD: 0.3 cm Right Kidney: 10.4 x 4.1 x 4.6 cm Pancreas: heterogeneous. possible hypoechoic area body = 2.0cm Liver: appears wnl Gallbladder: no evidence of stones Evidence for sonographic Reyes's sign: no CBD: appears wnl Right Kidney: no evidence of hydronephrosis Heterogeneous prominence of the pancreatic body. Pancreas findings seen better on same-day CT. IMPRESSION: No shadowing mobile gallstones or sonographic evidence for acute cholecystitis. [facility] Roberto Brooks, , 10/22/2024 3:38 PM
[2024-10-22] MEDS: HYDROmorphone 2 MG/ML 1 ML SYRINGE IVP PRN (16:33)
[2024-10-22 19:51] LABS: Chol/HDL Ratio 3.94 Ratio; LDL Cholesterol,Calculated 103.5 mg/dL (0.0-131.0); VLDL Calculation 13.68 mg/dL (5.00-40.00)
[2024-10-22] MEDS: ONDANSETRON 4 MG/2 ML VIAL IVP PRN (21:57)
[2024-10-23] MEDS: MELATONIN 5 MG TABLET PO PRN (01:53)
[2024-10-23 08:17] LABS: Basophils # (A) 0.06 X 10*3/uL (0.00-0.10); Basophils % (A) 0.9 %; Eosinophils # (A) 0.11 X 10*3/uL (0.04-0.35); Eosinophils % (A) 1.6 %; HCT 36.4 % (39.6-50.0); HGB 12.1 g/dL (13.0-17.0); Lymphocytes # (A) 2.27 X 10*3/uL (0.90-5.00); Lymphocytes % (A) 32.9 %; MCH 31.3 pg (27.0-32.0); MCHC 33.2 g/dL (32.0-37.0); MCV 94.1 FL (80.0-97.0); Monocytes # (A) 0.58 X 10*3/uL (0.20-1.00); Monocytes % (A) 8.4 %; NRBC Per 100 WBC 0 X 10*3/uL (0.00-0.01); Neutrophils # (A) 3.87 X 10*3/uL (1.80-7.70); Neutrophils % (A) 55.9 %; Platelet Count 174 X 10*3/uL (140-440); RBC 3.87 X 10*6/uL (4.40-5.60); RDW 13.2 % (11.5-14.5); WBC 6.91 X 10*3/uL (4.50-10.00)
[2024-10-23 08:37] LABS: Amylase 109 U/L (23-121); Blood Urea Nitrogen 7.7 mg/dL (9.0-27.0); Calcium 8.7 mg/dL (8.7-10.3); Carbon Dioxide 22.5 mmol/L (21.6-31.8); Chloride 106 mmol/L (96-109); Glucose 95 mg/dL (70-110); Lipase 143 U/L (14-60); Potassium 3.6 mmol/L (3.5-5.5); Sodium 140 mmol/L (135-145)
[2024-10-23] MEDS: PANTOPRAZOLE 40 MG/10 ML VIAL IV SCH (10:05)
[2024-10-23] MEDS: HEPARIN SODIUM,PORCINE 5,000 UNIT/ML 1 ML VIAL SQ SCH (11:08)
--- NOTE | 2024-10-23 12:37 | P.CONS ---
History of Present Illness - Reason for Consult Consult date: 10/23/24 Pancreatitis Requesting physician: Caro Herrera - Chief Complaint Abdominal pain, nausea and vomiting - History of Present Illness This a pleasant 58-year-old male with a past medical history including chronic kidney disease, bowel resection for twisted bowel reporting 63% of large bowel removed. Patient had presented to the emergency department for acute onset of epigastric pain radiating into his back that began around 1 AM yesterday morning then proceeded to have nausea and vomiting multiple times. He came into the emergency department for further evaluation he had a CT of the abdomen pelvis that reported findings consistent with acute interstitial edematous pancreatitis with a subtle 1.2 cm hypodense area in the central body noted. Patient was admitted for pancreatitis started on IV hydration, pain medication and antiemetics. Gastroenterology consulted for pancreatitis. Patient denies any previous episodes of pancreatitis. He denies starting any new medications and states he takes no medications at home. Denies any alcohol use or history of al cohol use. Denies any known family history of pancreatitis. LFTs unremarkable, lipase mildly elevated at 253 on admission. Triglycerides 68.4. Patient states nausea and vomiting has subsided. He states he is hungry but states that his pain is an 11. However patient was up and ambulating and talking in the hallway. Review of Systems REVIEW OF SYSTEMS: CARDIOPULMONARY: No chest pain or shortness of breath. Gastrointestinal: Abdominal pain epigastric region radiating to the back associated with nausea and vomiting prior to admission. Nausea and vomiting has subsided. No hematemesis, coffee-ground emesis. No rectal bleeding, or melena. GENITOURINARY: No dysuria or hematuria. MUSCULOSKELETAL: Reports normal range of motion., Joint pain. SKIN: No rashes. No jaundice. ENDOCRINE: No chills, fevers. No excessive weight gain or loss. No polydipsia or polyuria. PSYCHIATRIC: Unremarkable. NEUROLOGY: No change in mental status. Denies dizziness, headache. ENT: Vision unremarkable. CONSTITUTIONAL: No recent weight loss. No fever, chills, night sweats. Past Medical History Past Medical History: Renal Disease Additional Past Medical History / Comment(s): Diagnosed with "twisted bowel" in 2011, bowel resection 07/19/2012, history of acute renal failure related to dehydration, History of Any Multi-Drug Resistant Organisms: None Reported Past Surgical History: Bowel Resection, Hernia Repair Additional Past Surgical History / Comment(s): Volvulus, Last eye surgery 09/21/2017 lens repair, 12/2016 retinal reattachment surgery. Past Anesthesia/Blood Transfusion Reactions: No Reported Reaction Past Psychological History: Anxiety Smoking Status: Current every day smoker Past Alcohol Use History: Rare Past Drug Use History: Marijuana - Past Family History Father Family Medical History: CVA/TIA Additional Family Medical History / Comment(s): Patient's father at the age of 8080 years old from "organ failure." Mother Family Medical History: Diabetes Mellitus, Hypertension Additional Family Medical History / Comment(s): Patient's mother passedy away "of old age" per patient. Medications and Allergies Home Medications Medication Instructions Recorded Confirmed Type No Known Home Medications 10/22/24 10/22/24 History Allergies Allergy/AdvReac Type Severity Reaction Status Date / Time No Known Allergies Allergy Verified 10/22/24 11:06 Physical Exam Vitals: Vital Signs Temp Pulse Pulse Resp BP BP BP 10/23/24 08:00 98 F 55 L 16 112/60 10/23/24 01:35 97.9 F 67 12 107/62 10/22/24 20:00 97.6 F 66 12 104/59 10/22/24 15:52 98 F 62 18 123/66 10/22/24 12:38 98.3 F 61 22 126/73 10/22/24 10:52 66 20 143/80 10/22/24 09:43 68 18 145/70 10/22/24 09:33 97 F L 66 20 150/74 Pulse Ox 10/23/24 08:00 97 10/23/24 01:35 97 10/22/24 20:00 98 10/22/24 15:52 98 10/22/24 12:38 99 10/22/24 10:52 98 10/22/24 09:43 100 10/22/24 09:33 99 Intake and Output 10/22/24 10/23/24 10/23/24 22:59 06:59 14:59 Other: Voiding Method Toilet # Voids 1 2 Weight 54.431 kg General appearance: The patient is alert, oriented, appears in no acute distres s. HET: Head is normocephalic and atraumatic. Conjunctiva pink. Sclera anicteric. Neck: Supple without lymphadenopathy. Trachea midline. Heart: Regular. Lungs: Equal expansion, normal respiratory effort. Abdomen: Soft, epigastric tenderness, nondistended. Skin: No rashes. No jaundice. Extremities: Normal skin color and turgor. No pedal edema. Neurological: No focal deficits. Alert and oriented x3. Results CBC & Chem 7: 10/23/24 05:15 10/23/24 05:15 Labs: Abnormal Lab Results - Last 24 Hours (Table) 10/22/24 10/22/24 10/22/24 Range/Units 09:43 09:43 09:43 RBC (4.40-5.60) X 10*6/uL Hgb (13.0-17.0) g/dL Hct (39.6-50.0) % MPV 9.2 L (9.5-12.2) fL Eosinophils # 0.01 L (0.04-0.35) 10*3/uL BUN (9.0-27.0) mg/dL BUN/Creatinine Ratio (12.00-20.00) Ratio Glucose 140 H (74-99) mg/dL Plasma Lactic Acid Gianluca 2.1 H* (0.7-2.0) mmol/L HDL Cholesterol (40.00-60.00) mg/dL Lipase (14-60) U/L Ur Specific [place] (1.001-1.035) Urine Protein (Negative) Urine Ketones (Negative) 10/22/24 10/22/24 10/23/24 Range/Units 12:42 14:17 05:15 RBC (4.40-5.60) X 10*6/uL Hgb (13.0-17.0) g/dL Hct (39.6-50.0) % MPV (9.5-12.2) fL Eosinophils # (0.04-0.35) 10*3/uL BUN 7.7 L (9.0-27.0) mg/dL BUN/Creatinine Ratio 11.00 L (12.00-20.00) Ratio Glucose (74-99) mg/dL Plasma Lactic Acid Gianluca (0.7-2.0) mmol/L HDL Cholesterol 39.80 L (40.00-60.00) mg/dL Lipase 143 H (14-60) U/L Ur Specific [place] >1.050 H (1.001-1.035) Urine Protein Trace H (Negative) Urine Ketones 1+ H (Negative) 10/23/24 Range/Units 05:15 RBC 3.87 L (4.40-5.60) X 10*6/uL Hgb 12.1 L (13.0-17.0) g/dL Hct 36.4 L (39.6-50.0) % MPV (9.5-12.2) fL Eosinophils # (0.04-0.35) 10*3/uL BUN (9.0-27.0) mg/dL BUN/Creatinine Ratio (12.00-20.00) Ratio Glucose (74-99) mg/dL Plasma Lactic Acid Gianluca (0.7-2.0) mmol/L HDL Cholesterol (40.00-60.00) mg/dL Lipase (14-60) U/L Ur Specific [place] (1.001-1.035) Urine Protein (Negative) Urine Ketones (Negative) Comments: Gallbladder ultrasound reports heterogeneous possible echoic area in the body 2.0 cm in the pancreas, no CBD dilation, gallbladder without any evidence of stones. No shadowing mobile gallstones or sonographic evidence for acute cholecystitis. Assessment and Plan (1) Pancreatitis Narrative/Plan: 58-year-old male presenting with acute onset abdominal pain radiating to his back with CT evidence of acute edematous pancreatitis with hypodense area noted. No prior history of pancreatitis. No alcohol use, family history and no new medications. Unclear etiology of pancreatitis. LFTs are normal. Gallbladder ultrasound shows no gallstones, no CBD dilation. Will order NAYE, IgG4. Continue with symptomatic treatment. Consider MRI of the pancreas. Current Visit: Yes Status: Acute Code(s): K85.90 - ACUTE PANCREATITIS WITHOUT NECROSIS OR INFECTION, UNSP SNOMED Code(s): 22444182 (2) Nausea & vomiting Current Visit: Yes Status: Acute Code(s): R11.2 - NAUSEA WITH VOMITING, UNSPECIFIED SNOMED Code(s): 72900620 Plan: 1. Continue symptomatic and supportive care 2. Continue aggressive IV hydration 3. Pain medication as needed 4. Antiemetics as needed 5. Protonix 40 mg daily for GI prophylaxis 6. N.p.o. with ice chips 7. NAYE, IgG4 ordered 8. Recommend outpatient follow-up in 2 weeks. Consider possible outpatient MRI 9. Further recommendations forthcoming based on clinical course Thank you for this consultation, we will continue to follow. Dr. Ld Ingram I agree with the dictator's note, documented as a scribe by Jennifer Adam.
[2024-10-23] MEDS ORDERED: ONDANSETRON 4 MG/2 ML VIAL IVP PRN (13:27)
--- NOTE | 2024-10-23 13:32 | P.PN ---
Subjective This is a pleasant 58 years old male with no significant past medical history he does not follow-up with PCP and he does not take medication at home. Presents because of epigastric abdominal pain of 1 day duration. The patient states the pain in the right upper quadrant going up to the middle of the chest and to the back felt like a knife and twisting sharp about 12/10 in severity on presentation currently 3-10/24 after he received Dilaudid. Associated with frequent vomiting every 15 minutes or more than 10. He had normal bowel movement yesterday. That he denies any specific urinary symptoms or headache dizziness weakness or numbness. He denies any other overt chest pain although he has some cough. No dyspnea. He denies smoking alcohol or illicit drugs. He is afebrile vital stable. Has unremarkable CBC, BMP, LFTs. INR is normal. Troponin is negative. D-dimer is negative at 0.57. EKG showing sinus rhythm at 75. CT of the abdomen pelvis with contrast showing enlarged pancreas with mild to moderate ill-defined fluid and fat stranding in the oral area overlying the mid body of the pancreas with subtle 1.2 cm hypodense area in the body could reflect focal ductal dilatation, hyperdense mass or developing pseudocyst. Chest x-ray is negative for acute process 10/23 Patient still complaining from epigastric pain and tenderness, still going to the back. Although he states some improvement but he request to increase his pain medication. He is already on Dilaudid 1 mg every 3 hours and Maurepas 5 for going to increase his Maurepas dose to 10 mg. Risk-benefit explained. Also patient is complaining from nausea and states that Zofran works but not much therefore we will increase the dose from 4 up to 8 mg GI service are following closely. He k patient is asking for food. Pending recommendation from GI service. Currently keep n.p.o. with ice chips Patient was informed about his pancreatic lesion which could be pseudocyst maria duane tumor versus dilated duct Review of systems CONSTITUTIONAL: No fever, no malaise, no fatigue. HEENT: No recent visual problems or hearing problems. Denied any sore throat. CARDIOVASCULAR: No orthopnea, PND, no palpitations, no syncope. PULMONARY: No shortness of breath, no cough, no hemoptysis. GENITOURINARY: Denies any burning micturition, frequency, or urgency. MUSCULOSKELETAL/RHEUMATOLOGICAL: Denies any joint pain, swelling, or any muscle pain. ENDOCRINE: Denies any polyuria or polydipsia. Active Medications Generic Name Dose Route Start Last Admin Trade Name Freq PRN Reason Stop Dose Admin Acetaminophen 650 mg 10/22/24 13:11 Acetaminophen Tab 325 Mg Tab PO Q6HR PRN Mild Pain or Fever > 100.5 Hydrocodone Bitart/Acetaminophen 1 each 10/23/24 13:29 Hydrocodone/Apap 10-325mg 1 Each Tab PO Q6HR PRN Pain Heparin Sodium (Porcine) 5,000 unit 10/23/24 09:00 10/23/24 11:08 Heparin Sodium,Porcine 5,000 Unit/Ml 1 Ml Vial SQ 5,000 unit Q12HR DALIA Administration Hydromorphone HCl 0.5 mg 10/22/24 13:11 Hydromorphone 0.5 Mg/0.5 Ml Syringe IVP Q3HR PRN Moderate Pain (Scale 4 to 6) Hydromorphone HCl 1 mg 10/22/24 16:18 10/23/24 11:33 Hydromorphone 2 Mg/Ml 1 Ml Syringe IVP 1 mg Q3HR PRN Administration Severe Pain (Scale 7 to 10) Sodium Chloride 1,000 mls @ 130 mls/hr 10/22/24 13:15 10/23/24 13:16 Saline 0.9% IV 130 mls/hr .[id number] DALIA Administration Melatonin 5 mg 10/23/24 01:35 10/23/24 01:53 Melatonin 5 Mg Tablet PO 5 mg HS PRN Administration Insomnia Naloxone HCl 0.2 mg 10/22/24 13:11 Naloxone 0.4 Mg/Ml 1 Ml Vial IV Q2M PRN Opioid Reversal Nicotine 1 patch 10/22/24 13:15 10/23/24 10:06 Nicotine 21mg/24hr Patch TRANSDERM 1 patch DAILY DALIA Administration Ondansetron HCl 8 mg 10/23/24 13:30 Ondansetron 4 Mg/2 Ml Vial IVP Q8HR PRN Nausea And Vomiting Pantoprazole Sodium 40 mg 10/23/24 09:00 10/23/24 10:05 Pantoprazole 40 Mg/10 Ml Vial IV 40 mg DAILY DALIA Administration Objective - Vital Signs Vital signs: Vital Signs Temp 98 F 10/23/24 08:00 Pulse 55 L 10/23/24 08:00 Resp 16 10/23/24 08:00 BP 112/60 10/23/24 08:00 Pulse Ox 97 10/23/24 08:00 FiO2 Intake & Output 10/22/24 10/23/24 10/23/24 18:59 06:59 18:59 Weight 54.431 kg Other: Voiding Method Toilet # Voids 1 2 2 - Exam GENERAL: The patient is alert and oriented x3, not in any acute distress. Well developed, well nourished. HEENT: Pupils are round and equally reacting to light. EOMI. No scleral icterus. No conjunctival pallor. Normocephalic, atraumatic. No pharyngeal erythema. No thyromegaly. CARDIOVASCULAR: S1 and S2 present. No murmurs, rubs, or gallops. PULMONARY: Chest is clear to auscultation, no wheezing , no crackles. -ABDOMEN: Soft, epigastric tenderness nondistended, normoactive bowel sounds. No palpable organomegaly. MUSCULOSKELETAL: No joint swelling or deformity. EXTREMITIES: No cyanosis, clubbing, or pedal edema. NEUROLOGICAL: Gross neurological examination did not reveal any focal deficits. SKIN: No rashes. no petechiae. - Labs CBC & Chem 7: 10/23/24 05:15 10/23/24 05:15 Labs: Abnormal Lab Results - Last 24 Hours (Table) 10/22/24 10/22/24 10/23/24 Range/Units 12:42 14:17 05:15 RBC (4.40-5.60) X 10*6/uL Hgb (13.0-17.0) g/dL Hct (39.6-50.0) % BUN 7.7 L (9.0-27.0) mg/dL BUN/Creatinine Ratio 11.00 L (12.00-20.00) Ratio HDL Cholesterol 39.80 L (40.00-60.00) mg/dL Lipase 143 H (14-60) U/L Ur Specific [place] >1.050 H (1.001-1.035) Urine Protein Trace H (Negative) Urine Ketones 1+ H (Negative) 10/23/24 Range/Units 05:15 RBC 3.87 L (4.40-5.60) X 10*6/uL Hgb 12.1 L (13.0-17.0) g/dL Hct 36.4 L (39.6-50.0) % BUN (9.0-27.0) mg/dL BUN/Creatinine Ratio (12.00-20.00) Ratio HDL Cholesterol (40.00-60.00) mg/dL Lipase (14-60) U/L Ur Specific [place] (1.001-1.035) Urine Protein (Negative) Urine Ketones (Negative) Assessment and Plan Assessment: Acute pancreatitis with CT showing Acute interstitial edematous pancreatitis Possible hypodense lesion 1.2 cm in the body of the pancreas could represent developing pseudocyst, dilated duct or hyperdense mass Plan: Continue with IV fluid Pain medication, increase Maurepas to 10 Zofran for nausea N.p.o. GI team consult Check lipid panel Labs and medication were reviewed.. Continue same treatment. Continue with symptomatic treatment. Resume home medication. Monitor labs and vitals. DVT and GI prophylaxis. Further recommendations as per clinical course of the patient DVT prophylaxis: Subcutaneous heparin GI Prophylaxis: Pepcid Prognosis is guarded
[2024-10-23] MEDS: HYDROcodone/APAP 10-325MG 1 EACH TAB PO PRN (14:00)
[2024-10-23 14:58] VITALS: BMI 18.2
[2024-10-23] MEDS: ONDANSETRON 4 MG/2 ML VIAL IVP PRN (22:47)
[2024-10-23] MEDS: ALPRAZolam 0.5 MG TAB PO PRN (22:48)
[2024-10-24 08:59] LABS: ALT 11 U/L (10-49); AST 19 U/L (14-35); Albumin 3.2 g/dL (3.8-4.9); Albumin/Globulin Ratio 1.78 Ratio (1.60-3.17); Alkaline Phosphatase 53 U/L (41-126); BUN/Creat Ratio 13.14 Ratio (12.00-20.00); Bilirubin, Conjugated <0.20 mg/dL (0.20-0.40); Bilirubin,Unconjugated >0.10 mg/dL (0.20-1.00); Blood Urea Nitrogen 9.2 mg/dL (9.0-27.0); Carbon Dioxide 23.2 mmol/L (21.6-31.8); Chloride 108 mmol/L (96-109); Globulin 1.8 g/dL (1.6-3.3); Glucose 66 mg/dL (70-110); Sodium 139 mmol/L (135-145); Total Bilirubin 0.3 mg/dL (0.3-1.2)
--- NOTE | 2024-10-24 12:02 | P.PN ---
Subjective This is a pleasant 58 years old male with no significant past medical history he does not follow-up with PCP and he does not take medication at home. Presents because of epigastric abdominal pain of 1 day duration. The patient states the pain in the right upper quadrant going up to the middle of the chest and to the back felt like a knife and twisting sharp about 12/10 in severity on presentation currently 3-10/24 after he received Dilaudid. Associated with frequent vomiting every 15 minutes or more than 10. He had normal bowel movement yesterday. That he denies any specific urinary symptoms or headache dizziness weakness or numbness. He denies any other overt chest pain although he has some cough. No dyspnea. He denies smoking alcohol or illicit drugs. He is afebrile vital stable. Has unremarkable CBC, BMP, LFTs. INR is normal. Troponin is negative. D-dimer is negative at 0.57. EKG showing sinus rhythm at 75. CT of the abdomen pelvis with contrast showing enlarged pancreas with mild to moderate ill-defined fluid and fat stranding in the oral area overlying the mid body of the pancreas with subtle 1.2 cm hypodense area in the body could reflect focal ductal dilatation, hyperdense mass or developing pseudocyst. Chest x-ray is negative for acute process 10/23 Patient still complaining from epigastric pain and tenderness, still going to the back. Although he states some improvement but he request to increase his pain medication. He is already on Dilaudid 1 mg every 3 hours and [place] 5 for going to increase his [place] dose to 10 mg. Risk-benefit explained. Also patient is complaining from nausea and states that Zofran works but not much therefore we will increase the dose from 4 up to 8 mg GI service are following closely. He k patient is asking for food. Pending recommendation from GI service. Currently keep n.p.o. with ice chips Patient was informed about his pancreatic lesion which could be pseudocyst maria duane tumor versus dilated duct 10/24 Patient still complaining from epigastric pain and tenderness to 2/10 in severity No nausea vomiting Started taking liquid diet, he started taking his coffee this morning Patient wants to be careful about advancing diet however I think diet can be advanced more once cleared by GI service. He is currently on normal saline 130 mL we will going to increase the rate to help with his resolution. Continue with pain medication, currently pain is controlled. Objective - Vital Signs Vital signs: Vital Signs Temp 97.5 F L 10/24/24 07:23 Pulse 54 L 10/24/24 07:23 Resp 17 10/24/24 11:22 BP 119/69 10/24/24 10:38 Pulse Ox 95 10/24/24 07:23 FiO2 Intake & Output 10/23/24 10/24/24 10/24/24 18:59 06:59 18:59 Intake Total 1560 0 Balance 1560 0 Weight 54.431 kg Intake: Intake, IV Titration 1560 Amount Sodium Chloride 0.9% 1, 1560 000 ml @ 130 mls/hr IV . Q7H42M [facility] Rx#:[id number] Oral 0 Other: Voiding Method Toilet # Voids 1 - Exam GENERAL: The patient is alert and oriented x3, not in any acute distress. Well developed, well nourished. HEENT: Pupils are round and equally reacting to light. EOMI. No scleral icterus. No conjunctival pallor. Normocephalic, atraumatic. No pharyngeal erythema. No thyromegaly. CARDIOVASCULAR: S1 and S2 present. No murmurs, rubs, or gallops. PULMONARY: Chest is clear to auscultation, no wheezing , no crackles. -ABDOMEN: Soft, epigastric tenderness nondistended, normoactive bowel sounds. No palpable organomegaly. MUSCULOSKELETAL: No joint swelling or deformity. EXTREMITIES: No cyanosis, clubbing, or pedal edema. NEUROLOGICAL: Gross neurological examination did not reveal any focal deficits. SKIN: No rashes. no petechiae. - Labs CBC & Chem 7: 10/23/24 05:15 10/24/24 02:53 Labs: Abnormal Lab Results - Last 24 Hours (Table) 10/24/24 10/24/24 Range/Units 02:53 02:53 Glucose 66 L (70-110) mg/dL Calcium 8.0 L (8.7-10.3) mg/dL Unconjugated Bilirubin >0.10 L (0.20-1.00) mg/dL Total Protein 5.0 L (6.2-8.2) g/dL Albumin 3.2 L (3.8-4.9) g/dL IgG1 285.60 L (382.40-928.60) mg/dL IgG2 186.70 L (241.80-700.30) mg/dL Assessment and Plan Assessment: Acute pancreatitis with CT showing Acute interstitial edematous pancreatitis Possible hypodense lesion 1.2 cm in the body of the pancreas could represent developing pseudocyst, dilated duct or hyperdense mass Plan: Continue with IV fluid Pain medication, increase [place] to 5 and dilaudid Zofran for nausea advance diet as per gi service GI team consult Check lipid panel Labs and medication were reviewed.. Continue same treatment. Continue with symptomatic treatment. Resume home medication. Monitor labs and vitals. DVT and GI prophylaxis. Further recommendations as per clinical course of the patient DVT prophylaxis: Subcutaneous heparin GI Prophylaxis: Pepcid Prognosis is guarded
[2024-10-24] MEDS: HYDROmorphone 0.5 MG/0.5 ML SYRINGE IVP PRN (12:59)
[2024-10-24] MEDS: HYDROcodone/APAP 5-325MG 1 EACH TAB PO PRN (17:47)
--- NOTE | 2024-10-24 17:53 | P.PN ---
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 Patient had presented to the emergency department for acute onset of epigastric pain radiating into his back that began around 1 AM yesterday morning then proceeded to have nausea and vomiting multiple times. He came into the emergency department for further evaluation he had a CT of the abdomen pelvis that reported findings consistent with acute interstitial edematous pancreatitis with a subtle 1.2 cm hypodense area in the central body noted. Patient was admitted for pancreatitis started on IV hydration, pain medication and antiemetics. Gastroenterology consulted for pancreatitis. Patient denies any previous episodes of pancreatitis. He denies starting any new medications and states he takes no medications at home. Denies any alcohol use or history of alcohol use. Denies any known family history of pancreatitis. LFTs unremarkable, lipase mildly elevated at 253 on admission. Triglycerides 68.4. Patient states nausea and vomiting has subsided. He states he is hungry but states that his pain is an 11. However patient was up and ambulating and talking in the hallway. October 24, 2024 Patient seen and examined today as a follow-up. States abdominal pain a little bit better. Still requesting IV pain medication every 3 hours. As well as oral medication. Patient is hypotensive this morning pain medications being held at this time. He denies any nausea or vomiting. He has been tolerating ice chips. He states he is hungry and wants to eat. Labs are unremarkable Objective - Vital Signs Vital signs: Vital Signs Temp 97.5 F L 10/24/24 07:23 Pulse 54 L 10/24/24 07:23 Resp 18 10/24/24 07:23 BP 92/49 10/24/24 09:10 Pulse Ox 95 10/24/24 07:23 FiO2 Intake & Output 10/23/24 10/24/24 10/24/24 18:59 06:59 18:59 Intake Total 1560 0 Balance 1560 0 Weight 54.431 kg Intake: Intake, IV Titration 1560 Amount Sodium Chloride 0.9% 1, 1560 000 ml @ 130 mls/hr IV . Q7H42M [facility] Rx#:[id number] Oral 0 Other: # Voids 1 - Exam General appearance: The patient is alert, oriented, appears in no acute distress. HET: Head is normocephalic and atraumatic. Conjunctiva pink. Sclera anicteric. Neck: Supple without lymphadenopathy. Abdomen: Soft, epigastric tenderness, nondistended. Extremities: Normal skin color and turgor. No pedal edema Skin: No rashes, no jaundice Neurological: No focal deficits. Alert and oriented. - Labs CBC & Chem 7: 10/23/24 05:15 10/24/24 02:53 Labs: Abnormal Lab Results - Last 24 Hours (Table) 10/24/24 Range/Units 02:53 Glucose 66 L (70-110) mg/dL Calcium 8.0 L (8.7-10.3) mg/dL Unconjugated Bilirubin >0.10 L (0.20-1.00) mg/dL Total Protein 5.0 L (6.2-8.2) g/dL Albumin 3.2 L (3.8-4.9) g/dL Assessment and Plan (1) Pancreatitis Narrative/Plan: 58-year-old male presenting with acute onset abdominal pain radiating to his back with CT evidence of acute edematous pancreatitis with hypodense area noted. No prior history of pancreatitis. No alcohol use, family history and no new medications. Unclear etiology of pancreatitis. LFTs are normal. Gallbladder ultrasound shows no gallstones, no CBD dilation. Will order NAYE, IgG4. Continue with symptomatic treatment. Consider MRI of the pancreas. Current Visit: Yes Status: Acute Code(s): K85.90 - ACUTE PANCREATITIS WITHOUT NECROSIS OR INFECTION, UNSP SNOMED Code(s): 25284146 (2) Nausea & vomiting Current Visit: Yes Status: Acute Code(s): R11.2 - NAUSEA WITH VOMITING, UNSPECIFIED SNOMED Code(s): 96153678 Plan: 1. Continue symptomatic and supportive care 2. Continue aggressive IV hydration 3. Pain medication as needed. Transition to oral pain medication consider adding Toradol. 4. Antiemetics as needed 5. Protonix 40 mg daily for GI prophylaxis 6. Patient may have clear liquid diet, advance to full liquid diet then advance to low-fat low fiber diet as tolerated 7. NAYE, IgG4 ordered 8. Recommend outpatient follow-up in 2 weeks. Consider possible outpatient MRI 9. Anticipate discharge in the next 24 to 48 hours 10. Encourage ambulation Thank you for this consultation, we will continue to follow. Dr. Ld Ingram I agree with the dictator's note, documented as a scribe by Jennifer Adam.
[2024-10-25 08:14] LABS: Basophils # (A) 0.03 X 10*3/uL (0.00-0.10); Basophils % (A) 0.7 %; Eosinophils # (A) 0.12 X 10*3/uL (0.04-0.35); Eosinophils % (A) 2.9 %; HCT 32.9 % (39.6-50.0); Lymphocytes # (A) 1.76 X 10*3/uL (0.90-5.00); Lymphocytes % (A) 43.1 %; MCH 31.8 pg (27.0-32.0); MCHC 33.4 g/dL (32.0-37.0); MCV 95.1 FL (80.0-97.0); Mean Platelet Volume 9.9 FL (9.5-12.2); Monocytes # (A) 0.35 X 10*3/uL (0.20-1.00); Monocytes % (A) 8.6 %; NRBC Per 100 WBC 0 X 10*3/uL (0.00-0.01); Neutrophils # (A) 1.81 X 10*3/uL (1.80-7.70); Neutrophils % (A) 44.5 %; Platelet Count 153 X 10*3/uL (140-440); RBC 3.46 X 10*6/uL (4.40-5.60); RDW 13.2 % (11.5-14.5); WBC 4.08 X 10*3/uL (4.50-10.00)
[2024-10-25 08:19] LABS: Blood Urea Nitrogen 4.4 mg/dL (9.0-27.0); Calcium 7.6 mg/dL (8.7-10.3); Carbon Dioxide 22.2 mmol/L (21.6-31.8); Chloride 113 mmol/L (96-109); Glucose 93 mg/dL (70-110); Potassium 3.7 mmol/L (3.5-5.5); Sodium 142 mmol/L (135-145)
[2024-10-25 08:40] LABS: Lipase 46 U/L (14-60)
[2024-10-25 12:54] VITALS: BP 118/75; PULSE 53; RESP 19; TEMP 97.7
--- NOTE | 2024-10-25 12:55 | P.PN ---
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 Patient had presented to the emergency department for acute onset of epigastric pain radiating into his back that began around 1 AM yesterday morning then proceeded to have nausea and vomiting multiple times. He came into the emergency department for further evaluation he had a CT of the abdomen pelvis that reported findings consistent with acute interstitial edematous pancreatitis with a subtle 1.2 cm hypodense area in the central body noted. Patient was admitted for pancreatitis started on IV hydration, pain medication and antiemetics. Gastroenterology consulted for pancreatitis. Patient denies any previous episodes of pancreatitis. He denies starting any new medications and states he takes no medications at home. Denies any alcohol use or history of alcohol use. Denies any known family history of pancreatitis. LFTs unremarkable, lipase mildly elevated at 253 on admission. Triglycerides 68.4. Patient states nausea and vomiting has subsided. He states he is hungry but states that his pain is an 11. However patient was up and ambulating and talking in the hallway. October 24, 2024 Patient seen and examined today as a follow-up. States abdominal pain a little bit better. Still requesting IV pain medication every 3 hours. As well as oral medication. Patient is hypotensive this morning pain medications being held at this time. He denies any nausea or vomiting. He has been tolerating ice chips. He states he is hungry and wants to eat. Labs are unremarkable Limited 2024 Patient seen and examined today as a follow-up. 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 Nursing reported that he had IV pain medication only early in the night otherwise has had oral pain medication and pain has been well-managed. Patient denies any vomiting does state he still has a little mild nausea. Abdominal pain improving. Labs are unremarkable. NAYE negative, IgG4 negative. Objective - Vital Signs Vital signs: Vital Signs Temp 97.4 F L 10/25/24 01:22 Pulse 59 L 10/25/24 01:22 Resp 16 10/25/24 01:22 BP 111/66 10/25/24 01:22 Pulse Ox 99 10/25/24 01:22 FiO2 Intake & Output 10/24/24 10/25/24 10/25/24 18:59 06:59 18:59 Intake Total 3164 825 Balance 3164 825 Intake: Intake, IV Titration 825 Amount Sodium Chloride 0.9% 1, 825 000 ml @ 150 mls/hr IV . Q6H40M [facility] Rx#:[id number] Oral 3164 Other: Voiding Method Toilet Toilet # Voids 3 1 - Exam General appearance: The patient is alert, oriented, appears in no acute dis tress. HET: Head is normocephalic and atraumatic. Conjunctiva pink. Sclera anicteric. Neck: Supple without lymphadenopathy. Abdomen: Soft, epigastric tenderness, nondistended. Extremities: Normal skin color and turgor. No pedal edema Skin: No rashes, no jaundice Neurological: No focal deficits. Alert and oriented. - Labs CBC & Chem 7: 10/25/24 03:55 10/25/24 03:55 Labs: Abnormal Lab Results - Last 24 Hours (Table) 10/24/24 10/24/24 Range/Units 02:53 02:53 Glucose 66 L (70-110) mg/dL Calcium 8.0 L (8.7-10.3) mg/dL Unconjugated Bilirubin >0.10 L (0.20-1.00) mg/dL Total Protein 5.0 L (6.2-8.2) g/dL Albumin 3.2 L (3.8-4.9) g/dL IgG1 285.60 L (382.40-928.60) mg/dL IgG2 186.70 L (241.80-700.30) mg/dL Assessment and Plan (1) Pancreatitis Narrative/Plan: 58-year-old male presenting with acute onset abdominal pain radiating to his back with CT evidence of acute edematous pancreatitis with hypodense area noted. No prior history of pancreatitis. No alcohol use, family history and no new medications. Unclear etiology of pancreatitis. LFTs are normal. Gallbladder ultrasound shows no gallstones, no CBD dilation. Will order NAYE, IgG4. Continue with symptomatic treatment. Consider MRI of the pancreas. Still unclear etiology of pancreatitis. First episode pancreatitis, outpatient follow-up. Consider outpatient MRI of the pancreas. Current Visit: Yes Status: Acute Code(s): K85.90 - ACUTE PANCREATITIS WITHOUT NECROSIS OR INFECTION, UNSP SNOMED Code(s): 65510836 (2) Nausea & vomiting Current Visit: Yes Status: Acute Code(s): R11.2 - NAUSEA WITH VOMITING, UNSPECIFIED SNOMED Code(s): 92290348 Plan: 1. Continue symptomatic and supportive care 2. Recommend continuing IV Dilaudid and transition to oral pain medications 4. Antiemetics as needed 5. Protonix 40 mg daily for GI prophylaxis 6. Advance to low-fat diet 7. Encourage ambulation 8. Recommend outpatient follow-up in 2 weeks. Consider possible outpatient MRI 9. If patient tolerates diet advancement can be cleared for discharge Thank you for this consultation, gastroenterology will sign off at this time. Dr. Ld Ingram I agree with the dictator's note, documented as a scribe by Jennifer Adam.
--- NOTE | 2024-10-28 22:35 | P.DS ---
Providers Date of admission: 10/24/24 14:24 Attending physician: Sharon Waters Consults: 10/22/24 13:11 Consult Physician Urgent Consulting Provider: Nancy Ingram Consult Reason/Comments: Pancreatitis on CT, normal enzymes Do you want consulting provider notified?: Yes Primary care physician: Stated None Hospital Course: Final Diagnosis Acute pancreatitis with CT showing Acute interstitial edematous pancreatitis Possible hypodense lesion 1.2 cm in the body of the pancreas could represent developing pseudocyst, dilated duct or hyperdense mass Anxiety Chronic and ongoing nicotine use History of polysubstance use Discharge Disposition Patient stable for discharge home with overall guarded prognosis as he will require close follow-up with GI services. Patient to continue a low-fat diet. Hospital Course This is a pleasant 58 years old male with no significant past medical history he does not follow-up with PCP and he does not take medication at home. Presents because of epigastric abdominal pain of 1 day duration. The patient states the pain in the right upper quadrant going up to the middle of the chest and to the back felt like a knife and twisting sharp about 12/10 in severity on pres entation currently 3-4/10 after he received Dilaudid. Associated with frequent vomiting every 15 minutes or more than 10. He had normal bowel movement yesterday. That he denies any specific urinary symptoms or headache dizziness weakness or numbness. He denies any other overt chest pain although he has some cough. No dyspnea. Patient was afebrile and unremarkable blood work. His troponin was negative. He had negative D-dimer at 0.57. He was normal sinus rhythm on EKG. His CT of the abdomen pelvis revealed enlarged pancreas with mild to moderate ill-defined fluid and fat stranding in the oral area underlying the mid body of the pancreas with subtle 1.2 cm hypodense area in the body could reflect focal ductal dilatation or hyperdense mass or developing pseudocyst. Patient was evaluated by GI he was treated with IV Zofran for the nausea. He was given n.p.o. diet. The pancreatic lesion could be pseudocyst versus tumor versus dilated duct. His diet was slowly advanced. His amylase and lipase are now normal. White blood cell count is 4.08. His electrolytes are remained stable. GI was recommending discharge and outpatient follow-up. Please see medication reconciliation for a list of current medications. Thank you for allowing us to participate in the care of this patient. The impression and plan of care has been dictated by Winnie Ortiz Nurse Practitioner as directed. Dr. Cecil MD I have performed a history and physical examination and medical decision making of this patient, discussed the same with the dictator, and agree with the dictators assessment and plan as written, documented as a scribe. Based on total visit time, I have performed more than 50% of this visit. Patient Condition at Discharge: Fair Plan - Discharge Summary Discharge Rx Participant: Yes New Discharge Prescriptions: New Pantoprazole [Protonix] 40 mg PO DAILY #30 tab Discharge Medication List Pantoprazole [Protonix] 40 mg PO DAILY #30 tab 10/25/24 [Rx] Follow up Appointment(s)/Referral(s): Nancy Ingram MD [STAFF PHYSICIAN] - 2 Weeks [facility] Family,Medicine [NON-STAFF] - 1-2 days (Contact a primary care office to become established with a provider. ) None,Stated [Primary Care Provider] - 1-2 days Ambulatory/Diagnostic Orders: Comprehensive Metabolic Panel [LAB.AMB] Time Frame: 3 Days, Location: None Selected Patient Instructions/Handouts: Low Fat Diet (DC) Activity/Diet/Wound Care/Special Instructions: Diet as tolerated Follow up with GI in the office on discharge Discharge/Stand Alone Forms: PH Area PCPs Discharge Disposition: HOME SELF-CARE
== END 2024-10-25 17:48 | disposition home or self-care (01) | DRG 440 ==
LOC: EC 09:30 → 5NMEDONC 14:26 → OBSVTOIN 10-24 14:24
PROVIDERS: ADMIT Hospitalist; ATTEND Hospitalist
DX: K85.80 Other acute pancreatitis without necrosis or infection (principal); I95.9 Hypotension, unspecified; F17.210 Nicotine dependence, cigarettes, uncomplicated; N18.9 Chronic kidney disease, unspecified; K86.9 Disease of pancreas, unspecified; F41.9 Anxiety disorder, unspecified; Z71.6 Tobacco abuse counseling
CPT/HCPCS: 36415; 71046; 74177; 76705; 80048; 80053; 80061; 80076; 81003; 82150; 82787; 83605; 83690; 83735; 84484; 85025; 85379; 85610; 85730; 86038; 93005; 96361; 96374; 96375; 96376; 99285; 99406

== ENCOUNTER 2024-11-13 10:56 | Observation (INO) | payer MEDICARE ==
--- NOTE | 2024-11-13 11:26 | ED ---
General Adult HPI - General Chief complaint: Abdominal Pain Stated complaint: ABD PAin Time Seen by Provider: 11/13/24 11:00 Source: patient, RN notes reviewed Mode of arrival: ambulatory Limitations: no limitations - History of Present Illness Initial comments: Patient is a 59-year-old male present to the emergency department with concerns with abdominal discomfort. Onset was yesterday. Patient did have similar episode several weeks ago associated with pancreatitis. Patient is not a drinker. They are unclear why he had pancreatitis. Discomfort is similar. Discomfort is epigastric. Discomfort does radiate towards the back and maybe a little bit towards the chest. Patient has had nausea and vomiting several times. Patient has taken several doses of Zofran without much help. - Related Data Previous Rx's Medication Instructions Recorded Pantoprazole [Protonix] 40 mg PO DAILY #30 tab 10/25/24 Allergies Allergy/AdvReac Type Severity Reaction Status Date / Time No Known Allergies Allergy Verified 11/13/24 11:41 Review of Systems ROS Statement: Those systems with pertinent positive or pertinent negative responses have been documented in the HPI. ROS Other: All systems not noted in ROS Statement are negative. Constitutional: Denies: fever Eyes: Denies: eye pain ENT: Denies: ear pain Respiratory: Denies: dyspnea Gastrointestinal: Reports: as per HPI, abdominal pain, nausea, vomiting Genitourinary: Denies: dysuria Past Medical History Past Medical History: Renal Disease Additional Past Medical History / Comment(s): Diagnosed with "twisted bowel" in 2011, bowel resection 07/19/2012, history of acute renal failure related to dehydration, pancreatitis History of Any Multi-Drug Resistant Organisms: None Reported Past Surgical History: Bowel Resection, Hernia Repair Additional Past Surgical History / Comment(s): Volvulus, Last eye surgery 09/21/2017 lens repair, 12/2016 retinal reattachment surgery. Past Anesthesia/Blood Transfusion Reactions: No Reported Reaction Past Psychological History: Anxiety Smoking Status: Current every day smoker Past Alcohol Use History: Rare Past Drug Use History: Marijuana - Past Family History Father Family Medical History: CVA/TIA Additional Family Medical History / Comment(s): Patient's father at the age of 8080 years old from "organ failure." Mother Family Medical History: Diabetes Mellitus, Hypertension Additional Family Medical History / Comment(s): Patient's mother passedy away "of old age" per patient. General Exam Limitations: no limitations General appearance: alert, in no apparent distress Head exam: Present: normocephalic Eye exam: Present: normal appearance Neck exam: Present: normal inspection Respiratory exam: Present: normal lung sounds bilaterally Cardiovascular Exam: Present: regular rate, normal rhythm Expanded Peripheral pulses: 2+: Posterior Tibialis (R), Posterior Tibialis (L) GI/Abdominal exam: Present: soft, tenderness (Moderate epigastric tenderness to palpation), normal bowel sounds. Absent: distended, guarding, rebound, rigid, pulsatile mass Extremities exam: Present: normal inspection. Absent: calf tenderness Neurological exam: Present: alert Psychiatric exam: Present: normal affect, normal mood Skin exam: Present: normal color Course Vital Signs 11/13/24 11/13/24 11/13/24 10:58 11:53 14:04 Temperature 97.3 F L Pulse Rate 78 60 64 Respiratory 18 22 20 Rate Blood Pressure 176/95 145/84 139/72 O2 Sat by Pulse 100 100 99 Oximetry EKG Findings - EKG Results: EKG: interpreted by ERMD, sinus rhythm, normal axis, normal QRS, normal ST/T Medical Decision Making - Medical Decision Making Was pt. sent in by a medical professional or institution (, PA, BOX MACHINE OPERATOR, urgent care, hospital, or usp...) When possible be specific @ -No Did you speak to anyone other than the patient for history (EMS, parent, family, police, friend...)? What history was obtained from this source @ -No Did you review nursing and triage notes (agree or disagree)? Why? @ -I reviewed and agree with nursing and triage notes Were old charts reviewed (outside hosp., previous admission, EMS record, old EKG, old radiological studies, urgent care reports/EKG's, usp records)? Report findings @ -Previous admission reviewed Differential Diagnosis (chest pain, altered mental status, abdominal pain women, abdominal pain men, vaginal bleeding, weakness, fever, dyspnea, syncope, headache, dizziness, GI bleed, back pain, seizure, CVA, palpatations, mental health, musculoskeletal)? @ -Differential Abdominal Pain Men: Appendicitis, cholecystitis, diverticulosis, ischemic bowel, pancreatitis, hepatitis, UTI, gastroenteritis, AAA, incarcerated hernia, bowel obstruction, constipation, inflammatory bowel, hepatitis, peptic ulcer disease, splenic infarction, perforated viscus, testicular torsion, this is not meant to be an all-inclusive list EKG interpreted by me (3pts min.). @ -As above X-rays interpreted by me (1pt min.). @ -None done CT interpreted by me (1pt min.). @ -CT scan abdomen pelvis without acute abnormality U/S interpreted by me (1pt. min.). @ -None done What testing was considered but not performed or refused? (CT, X-rays, U/S, labs)? Why? @ -None What meds were considered but not given or refused? Why? @ -None Did you discuss the management of the patient with other professionals (professionals i.e. , PA, BOX MACHINE OPERATOR, lab, RT, psych nurse, 7th grade social studies teacher, shuttle operator, teacher, credit products officer, nurse case manager)? Give summary @ -Case was discussed with Dr. Mason who will admit covering hospital call Was smoking cessation discussed for >3mins.? @ -No Was critical care preformed (if so, how long)? @ -No Were there social determinants of health that impacted care today? How? ( Homelessness, low income, unemployed, alcoholism, drug addiction, transportation, low edu. Level, literacy, decrease access to med. care, nursing home, rehab)? @ -No Was there de-escalation of care discussed even if they declined (Discuss DNR or withdrawal of care, Hospice)? DNR status @ -No What co-morbidities impacted this encounter? (DM, HTN, Smoking, COPD, CAD, Cancer, CVA, ARF, Chemo, Hep., AIDS, mental health diagnosis, sleep apnea, morbid obesity)? @ -None Was patient admitted / discharged? Hospital course, mention meds given and route, prescriptions, significant lab abnormalities, going to OR and other pertinent info. @ -Patient presents with abdominal discomfort, nausea and vomiting. On reevaluation patient has continued complaints and does not feel comfortable discharge home. Patient is requesting admission. Admission orders written. Patient updated. Undiagnosed new problem with uncertain prognosis? @ -No Drug Therapy requiring intensive monitoring for toxicity (Heparin, Nitro, Insulin, Cardizem)? @ -No Were any procedures done? @ -No Diagnosis/symptom? @ -Intractable vomiting, abdominal pain Acute, or Chronic, or Acute on Chronic? @ -Acute, acute Uncomplicated (without systemic symptoms) or Complicated (systemic symptoms)? @ -Default Side effects of treatment? @ -No Exacerbation, Progression, or Severe Exacerbation? @ -No Poses a threat to life or bodily function? How? (Chest pain, [place], [place], pneumonia, PE, COPD, DKA, ARF, appy, cholecystitis, CVA, Diverticulitis, Homicidal, Suicidal, threat to staff... and all critical care pts) @ -No - Lab Data Result diagrams: 11/13/24 11:53 11/13/24 11:53 Lab Results 11/13/24 11/13/24 11/13/24 Range/Units 11:53 11:53 11:53 WBC 7.82 (4.50-10.00) 10*3/uL RBC 4.62 (4.40-5.60) 10*6/uL Hgb 14.7 (13.0-17.0) g/dL Hct 42.5 (39.6-50.0) % MCV 92.0 (80.0-97.0) fL MCH 31.8 (27.0-32.0) pg MCHC 34.6 (32.0-37.0) g/dL Plt Count 205 (140-440) 10*3/uL MPV 9.7 (9.5-12.2) fL Immature Gran % (Auto) 0.4 % Neutrophils % 70.9 % Lymphocytes % 19.2 % Monocytes % 8.1 % Eosinophils % 0.9 % Basophils % 0.5 % Immature Gran # 0.03 (0.00-0.04) 10*3/uL Neutrophils # 5.55 (1.80-7.70) 10*3/uL Lymphocytes # 1.50 (0.90-5.00) 10*3/uL Monocytes # 0.63 (0.20-1.00) 10*3/uL Eosinophils # 0.07 (0.04-0.35) 10*3/uL Basophils # 0.04 (0.00-0.10) 10*3/uL PT 10.8 (10.0-12.5) sec INR 1.0 (<1.2) APTT 25.3 (22.0-30.0) sec Sodium 142 (137-145) mmol/L Potassium 3.5 (3.5-5.1) mmol/L Chloride 103 (98-107) mmol/L Carbon Dioxide 27 (22-30) mmol/L Anion Gap 12 mmol/L BUN 11 (9-20) mg/dL Creatinine 0.70 (0.66-1.25) mg/dL Est GFR (CKD-EPI)AfAm >90 (>60 ml/min/1.73 sqM) Est GFR (CKD-EPI)NonAf >90 (>60 ml/min/1.73 sqM) Glucose 109 H (74-99) mg/dL Calcium 9.4 (8.4-10.2) mg/dL Total Bilirubin 0.6 (0.2-1.3) mg/dL AST 21 (17-59) U/L ALT 17 (4-49) U/L Alkaline Phosphatase 61 (38-126) U/L Troponin I (0.000-0.034) ng/mL Total Protein 6.7 (6.3-8.2) g/dL Albumin 4.1 (3.5-5.0) g/dL Amylase 67 (30-110) U/L Lipase 84 (23-300) U/L / Range/Units 11:53 WBC (4.50-10.00) 10*3/uL RBC (4.40-5.60) 10*6/uL Hgb (13.0-17.0) g/dL Hct (39.6-50.0) % MCV (80.0-97.0) fL MCH (27.0-32.0) pg MCHC (32.0-37.0) g/dL Plt Count (140-440) 10*3/uL MPV (9.5-12.2) fL Immature Gran % (Auto) % Neutrophils % % Lymphocytes % % Monocytes % % Eosinophils % % Basophils % % Immature Gran # (0.00-0.04) 10*3/uL Neutrophils # (1.80-7.70) 10*3/uL Lymphocytes # (0.90-5.00) 10*3/uL Monocytes # (0.20-1.00) 10*3/uL Eosinophils # (0.04-0.35) 10*3/uL Basophils # (0.00-0.10) 10*3/uL PT (10.0-12.5) sec INR (<1.2) APTT (22.0-30.0) sec Sodium (137-145) mmol/L Potassium (3.5-5.1) mmol/L Chloride (98-107) mmol/L Carbon Dioxide (22-30) mmol/L Anion Gap mmol/L BUN (9-20) mg/dL Creatinine (0.66-1.25) mg/dL Est GFR (CKD-EPI)AfAm (>60 ml/min/1.73 sqM) Est GFR (CKD-EPI)NonAf (>60 ml/min/1.73 sqM) Glucose (74-99) mg/dL Calcium (8.4-10.2) mg/dL Total Bilirubin (0.2-1.3) mg/dL AST (17-59) U/L ALT (4-49) U/L Alkaline Phosphatase (38-126) U/L Troponin I <0.012 (0.000-0.034) ng/mL Total Protein (6.3-8.2) g/dL Albumin (3.5-5.0) g/dL Amylase (30-110) U/L Lipase (23-300) U/L Disposition Clinical Impression: Abdominal pain, Nausea & vomiting Disposition: ADMITTED IP TO THIS HOSP Is patient prescribed a controlled substance at d/c from ED?: No Referrals: None,Stated [Primary Care Provider] - 1-2 days Time of Disposition: 15:12
[2024-11-13] MEDS: SODIUM CHLORIDE 0.9% 1,000 ML IV ONE (11:46)
[2024-11-13] MEDS: METOCLOPRAMIDE 5 MG/ML 2 ML VIAL IVP STA (11:47)
[2024-11-13] MEDS: HYDROmorphone 1 MG/ML 1 ML SYRINGE IVP STA ×2 (11:50→14:07)
[2024-11-13] MEDS: PANTOPRAZOLE 40 MG/10 ML VIAL IVP STA (11:52)
[2024-11-13 12:00] LABS: Basophils # (A) 0.04 10*3/uL (0.00-0.10); Basophils % (A) 0.5 %; Eosinophils # (A) 0.07 10*3/uL (0.04-0.35); Eosinophils % (A) 0.9 %; HCT 42.5 % (39.6-50.0); HGB 14.7 g/dL (13.0-17.0); Lymphocytes % (A) 19.2 %; MCH 31.8 pg (27.0-32.0); MCHC 34.6 g/dL (32.0-37.0); Mean Platelet Volume 9.7 fL (9.5-12.2); Monocytes # (A) 0.63 10*3/uL (0.20-1.00); Monocytes % (A) 8.1 %; Neutrophils # (A) 5.55 10*3/uL (1.80-7.70); Neutrophils % (A) 70.9 %; Platelet Count 205 10*3/uL (140-440); RBC 4.62 10*6/uL (4.40-5.60); RDW 13.2 % (11.5-14.5); WBC 7.82 10*3/uL (4.50-10.00)
[2024-11-13 12:12] LABS: Partial Thromboplastin Time 25.3 sec (22.0-30.0); Prothrombin Time 10.8 sec (10.0-12.5)
[2024-11-13 12:13] LABS: ALT 17 U/L (4-49); AST 21 U/L (17-59); African American GFR (CKD) >90 (>60 ml/min/1.73 sqM); Albumin 4.1 g/dL (3.5-5.0); Alkaline Phosphatase 61 U/L (38-126); Amylase 67 U/L (30-110); Anion Gap 12 mmol/L; Blood Urea Nitrogen 11 mg/dL (9-20); Calcium 9.4 mg/dL (8.4-10.2); Carbon Dioxide 27 mmol/L (22-30); Chloride 103 mmol/L (98-107); Glucose 109 mg/dL (74-99); Lipase 84 U/L (23-300); Non-African American GFR(CKD) >90 (>60 ml/min/1.73 sqM); Potassium 3.5 mmol/L (3.5-5.1); Sodium 142 mmol/L (137-145); Total Bilirubin 0.6 mg/dL (0.2-1.3); Total Protein 6.7 g/dL (6.3-8.2)
--- NOTE | 2024-11-13 13:07 | CT ---
EXAMINATION TYPE: CT abdomen pelvis wo con DATE OF EXAM: 11/13/2024 COMPARISON: 10/22/2024 CLINICAL INDICATION: Male, 59 years old with history of abdominal pain; PHH, Abdominal pain TECHNIQUE: CT scan of the abdomen and pelvis is performed without oral or IV contrast. CT DLP: [address] CTDI: mGy Automated exposure control for dose reduction was used. FINDINGS: Within the limitations of a non-contrast study, the following observations are made. The lungs are clear. Gallbladder is normal and there is no gallstone, wall thickening, pericholecystic fluid or distention . There is no biliary ductal dilatation. There is no organomegaly of the liver, pancreas, spleen or adrenal glands. Cystic mass in the body of the pancreas seen on the prior study not appreciated on the current study. The exam is limited due t o lack of IV contrast. There are no renal calcifications or hydronephrosis. The caliber of the abdominal aorta is normal and there is no retroperitoneal adenopathy or hemorrhage . The bowel loops are normal in caliber is no evidence of obstruction. There are anastomotic sutures in the sigmoid colon. No inflammatory changes are identified in the mesentery and there is no free intr aperitoneal air or fluid. There is no pelvic mass, free fluid, abscess or adenopathy. There is mild diverticulosis of the colon without CT evidence of diverticulitis. There is moderate levoscoliosis of lumbar spine and multilevel advanced degenerative disc disease in the upper to mid lumbar spine. IMPRESSION: No acute changes within the abdomen or pelvis. Evaluation of pancreas is limited due to lack of IV co ntrast but no definite pancreatic abnormality seen. [facility], , 11/13/2024 1:05 PM
[2024-11-13] MEDS: SODIUM CHLORIDE 0.9% 500 ML 500 ML IV ONE (14:28)
[2024-11-13] MEDS ORDERED: ACETAMINOPHEN TAB 325 MG TAB PO PRN (15:13)
[2024-11-13] MEDS ORDERED: NALOXONE 0.4 MG/ML 1 ML VIAL IV PRN (15:13)
[2024-11-13] MEDS ORDERED: PANTOPRAZOLE 40 MG/10 ML VIAL IV SCH (15:15)
[2024-11-13] MEDS: SODIUM CHLORIDE 0.9% 1,000 ML IV SCH (16:02)
[2024-11-13] MEDS: NICOTINE 21MG/24HR PATCH TRANSDERM SCH (17:27)
[2024-11-13] MEDS: MORPHINE SULFATE 4 MG/ML SYRINGE IV PRN (19:54)
[2024-11-13] MEDS: ONDANSETRON 4 MG/2 ML VIAL IVP PRN (19:54)
[2024-11-14 07:17] LABS: Basophils # (A) 0.04 10*3/uL (0.00-0.10); Basophils % (A) 0.7 %; Eosinophils # (A) 0.13 10*3/uL (0.04-0.35); Eosinophils % (A) 2.2 %; HCT 38.2 % (39.6-50.0); HGB 12.9 g/dL (13.0-17.0); Lymphocytes # (A) 1.96 10*3/uL (0.90-5.00); Lymphocytes % (A) 33.9 %; MCH 32.3 pg (27.0-32.0); MCHC 33.8 g/dL (32.0-37.0); MCV 95.7 fL (80.0-97.0); Mean Platelet Volume 9.7 fL (9.5-12.2); Monocytes # (A) 0.62 10*3/uL (0.20-1.00); Monocytes % (A) 10.7 %; Neutrophils # (A) 3.01 10*3/uL (1.80-7.70); Neutrophils % (A) 52.2 %; Platelet Count 164 10*3/uL (140-440); RBC 3.99 10*6/uL (4.40-5.60); RDW 13.2 % (11.5-14.5); WBC 5.78 10*3/uL (4.50-10.00)
[2024-11-14] MEDS: PANTOPRAZOLE 40 MG/10 ML VIAL IV SCH (08:41)
[2024-11-14 10:34] LABS: ALT 13 U/L (10-49); AST 17 U/L (14-35); Albumin 3.7 g/dL (3.8-4.9); Albumin/Globulin Ratio 1.85 Ratio (1.60-3.17); Alkaline Phosphatase 62 U/L (41-126); Amylase 74 U/L (23-121); BUN/Creat Ratio 7.43 Ratio (12.00-20.00); Blood Urea Nitrogen 5.2 mg/dL (9.0-27.0); Calcium 8.3 mg/dL (8.7-10.3); Carbon Dioxide 23.8 mmol/L (21.6-31.8); Chloride 109 mmol/L (96-109); Glucose 97 mg/dL (70-110); Lipase 29 U/L (14-60); Potassium 3.9 mmol/L (3.5-5.5); Sodium 142 mmol/L (135-145); Total Bilirubin 0.3 mg/dL (0.3-1.2); Total Protein 5.7 g/dL (6.2-8.2)
[2024-11-14] MEDS: HYDROcodone/APAP 5-325MG 1 EACH TAB PO PRN (13:11)
[2024-11-14 15:42] VITALS: BP 106/65; RESP 17; TEMP 98.6
[2024-11-14 16:13] VITALS: PULSE 58
--- NOTE | 2024-11-14 20:41 | P.HPIM ---
History of Present Illness H&P Date: 11/14/24 This is a 59-year-old male who presented to the emergency department with intractable nausea and vomiting and abdominal pain reporting he feels the same as a few weeks ago when he was hospitalized for acute pancreatitis. Patient did undergo CT abdomen in the ER with no acute findings noted. Amylase and lipase were 67 and 84 and is trending down on today's repeat labs. Patient is maintained on IV hydration along with pain management and was admitted under observation for continued intractable abdominal pain. Patient has significant history of twisted bowel loops requiring surgery with a large portion of his large intestine removed back in 2012. Patient admits to smoking cigarettes, den ies alcohol or drug use. Patient reportedly has history of substance abuse in the past. REVIEW OF SYSTEMS: CONSTITUTIONAL: No fever, no malaise, no fatigue. HEENT: No recent visual problems or hearing problems. Denied any sore throat. CARDIOVASCULAR: No chest pain, orthopnea, PND, no palpitations, no syncope. PULMONARY: No shortness of breath, no cough, no hemoptysis. GASTROINTESTINAL: No diarrhea, reported nausea, reported vomiting prior to admission although resolved, reports diffuse epigastric abdominal pain. NEUROLOGICAL: No headaches, no weakness, no numbness. HEMATOLOGICAL: Denies any bleeding or petechiae. GENITOURINARY: Denies any burning micturition, frequency, or urgency. MUSCULOSKELETAL/RHEUMATOLOGICAL: Denies any joint pain, swelling, or any muscle pain. ENDOCRINE: Denies any polyuria or polydipsia. The rest of the 14-point review of systems is negative. PHYSICAL EXAMINATION: GENERAL: The patient is alert and oriented x3, not in any acute distress. Well developed, thin built, elderly appearing HEENT: Pupils are round and equally reacting to light. EOMI. No scleral icterus. No conjunctival pallor. Normocephalic, atraumatic. No pharyngeal erythema. No th yromegaly. CARDIOVASCULAR: S1 and S2 present. No murmurs, rubs, or gallops. PULMONARY: Chest is clear to auscultation, no wheezing or crackles. ABDOMEN: Soft, thin, tender in the mid epigastric area, nondistended, normoactive bowel sounds. No palpable organomegaly. MUSCULOSKELETAL: No joint swelling or deformity. EXTREMITIES: No cyanosis, clubbing, or pedal edema. NEUROLOGICAL: Gross neurological examination did not reveal any focal deficits. SKIN: No rashes. Assessment: Abdominal pain with intractable nausea and vomiting, likely acute gastritis History of recent hospitalization with acute pancreatitis with acute interstitial edematous pancreatitis History of anxiety Continued ongoing nicotine abuse History of polysubstance abuse Moderate protein calorie malnutrition with a BMI of 18.0 GI prophylaxis DVT prophylaxis Full code Plan: Patient was admitted for abdominal pain with intractable nausea and vomiting which has resolved and patient was maintaining clear liquids this morning recommending and advance diet Amylase and lipase were not elevated on admission although patient reports to having the same pain in intensity in the mid epigastric area as previous admission with acute pancreatitis. Patient was instructed to follow-up with primary care provider to establish as well as GI in the outpatient setting although failed to do so Patient is continued on Protonix and will continue in the outpatient setting Diet will be advanced to low fiber and if tolerating patient will be discharged later today. The impression and plan of care has been dictated by Suze Spring, Nurse Practitioner as directed. Dr. Cecil MD I have performed a history and examination and MDM of this patient, discussed the same with the dictator, and agree with the dictator's assessment and plan as written ,documented as a scribe. Based on total visit time, I have performed more than 50% of the visit. Past Medical History Past Medical History: Renal Disease Additional Past Medical History / Comment(s): Diagnosed with "twisted bowel" in 2011, bowel resection 07/19/2012, history of acute renal failure related to dehydration, pancreatitis History of Any Multi-Drug Resistant Organisms: None Reported Past Surgical History: Bowel Resection, Hernia Repair Additional Past Surgical History / Comment(s): Volvulus, Last eye surgery 09/21/2017 lens repair, 12/2016 retinal reattachment surgery. Past Anesthesia/Blood Transfusion Reactions: No Reported Reaction Past Psychological History: Anxiety Smoking Status: Current every day smoker Past Alcohol Use History: Rare Additional Past Alcohol Use History / Comment(s): patient used to drink 20+ years ago. Past Drug Use History: Marijuana Additional Drug Use History / Comment(s): uses marijuana currently. History of Opiates, Cocaine and Methamphetamines many years ago - Past Family History Father Family Medical History: CVA/TIA Additional Family Medical History / Comment(s): Patient's father at the age of 8080 years old from "organ failure." Mother Family Medical History: Diabetes Mellitus, Hypertension Additional Family Medical History / Comment(s): Patient's mother passedy away "of old age" per patient. Medications and Allergies Home Medications Medication Instructions Recorded Confirmed Type Pantoprazole [Protonix] 40 mg PO DAILY #30 tab 10/25/24 11/13/24 Rx Acetaminophen Tab [Tylenol] 650 mg PO Q6HR PRN tab 11/14/24 Rx HYDROcodone/APAP 5-325MG [[place] 1 each PO Q6HR PRN #6 tab 11/14/24 Rx 5-325] Nicotine 21Mg/24Hr Patch [Habitrol] 1 patch TRANSDERM DAILY patch 11/14/24 Rx Allergies Allergy/AdvReac Type Severity Reaction Status Date / Time No Known Allergies Allergy Verified 11/13/24 11:41 Physical Exam Vitals: Vital Signs Temp Pulse Pulse Resp BP BP Pulse Ox 11/14/24 07:00 97.7 F 51 L 16 137/77 100 11/14/24 01:12 97.8 F 61 18 124/73 99 11/13/24 19:19 98.3 F 66 18 112/60 98 11/13/24 18:32 97.9 F 61 18 138/63 100 11/13/24 17:39 97.0 F L 56 L 18 130/69 98 11/13/24 16:06 67 18 108/67 100 11/13/24 14:04 64 20 139/72 99 11/13/24 11:53 60 22 145/84 100 11/13/24 10:58 97.3 F L 78 18 176/95 100 Intake and Output 11/13/24 11/14/24 11/14/24 22:59 06:59 14:59 Other: # Voids 1 2 Weight 52.163 kg Results CBC & Chem 7: 11/14/24 07:01 11/14/24 07:01 Labs: Abnormal Lab Results - Last 24 Hours (Table) 11/13/24 11/14/24 Range/Units 11:53 07:01 RBC 3.99 L (4.40-5.60) 10*6/uL Hgb 12.9 L (13.0-17.0) g/dL Hct 38.2 L (39.6-50.0) % MCH 32.3 H (27.0-32.0) pg Glucose 109 H (74-99) mg/dL
--- NOTE | 2024-11-14 20:44 | P.DS ---
Providers Date of admission: 11/13/24 15:14 Expected date of discharge: 11/14/24 Attending physician: Elio Penaloza MD Primary care physician: Stated None Hospital Course: Final diagnosis Abdominal pain with intractable nausea and vomiting, likely acute gastritis History of recent hospitalization with acute pancreatitis with acute interstitial edematous pancreatitis History of anxiety Continued ongoing nicotine abuse History of polysubstance abuse Moderate protein calorie malnutrition with a BMI of 18.0 GI prophylaxis DVT prophylaxis Full code Discharge disposition Patient is being discharged in a stable condition with guarded prognosis to home. Patient will follow-up with Dr. Stas Waters to establish in the outpatient setting upon discharge. Patient is to continue with Protonix and low fiber diet and outpatient follow-up with GI as scheduled. Total time taken is greater than 35 minutes. Hospital course This is a 59-year-old male who presented to the emergency department with intractable nausea and vomiting and abdominal pain reporting he feels the same as a few weeks ago when he was hospitalized for acute pancreatitis. Patient did undergo CT abdomen in the ER with no acute findings noted. Amylase and lipase were 67 and 84 and is trending down on today's repeat labs. other labs reviewed within normal limits Patient is maintained on IV hydration along with pain management and was admitted under observation for continued intractable abdominal pain. Patient has significant history of twisted bowel loops requiring surgery with a large portion of his large intestine removed back in 2012. Patient admits to smoking cigarettes, denies alcohol or drug use. Patient reportedly has history of substance abuse in the past. Patient was reporting significant abdominal pain tolerating clear liquids asking for an advancing diet as he reports he is hungry and was given low fiber diet and tolerated. Patient has been instructed to continue on Protonix and recommend outpatient follow-up with GI as instructed previously although unable to make his appointment. Patient will be discharged today. High risk for readmissions given noncompliance and poor follow-up. PHYSICAL EXAMINATION: GENERAL: The patient is alert and oriented x3, not in any acute distress. Well developed, thin built, elderly appearing HEENT: Pupils are round and equally reacting to light. EOMI. No scleral icterus. No conjunctival pallor. Normocephalic, atraumatic. No pharyngeal erythema. No thyromegaly. CARDIOVASCULAR: S1 and S2 present. No murmurs, rubs, or gallops. PULMONARY: Chest is clear to auscultation, no wheezing or crackles. ABDOMEN: Soft, thin, tender in the mid epigastric area, nondistended, normoactive bowel sounds. No palpable organomegaly. MUSCULOSKELETAL: No joint swelling or deformity. EXTREMITIES: No cyanosis, clubbing, or pedal edema. NEUROLOGICAL: Gross neurological examination did not reveal any focal deficits. SKIN: No rashes. Please refer to medication reconciliation sheet for a list of medications. The impression and plan of care has been dictated by Suze Spring, Nurse Practitioner as directed. Dr. Cecil MD I have performed a history and examination and MDM of this patient, discussed the same with the dictator, and agree with the dictator's assessment and plan as written ,documented as a scribe. Based on total visit time, I have performed more than 50% of the visit. Patient Condition at Discharge: Fair Plan - Discharge Summary New Discharge Prescriptions: New Nicotine 21Mg/24Hr Patch [Habitrol] 1 patch TRANSDERM DAILY patch HYDROcodone/APAP 5-325MG [[place] 5-325] 1 each PO Q6HR PRN #6 tab PRN Reason: Pain 4-6 Acetaminophen Tab [Tylenol] 650 mg PO Q6HR PRN tab PRN Reason: Mild Pain Or Fever > 100.5 Continue Pantoprazole [Protonix] 40 mg PO DAILY #30 tab Discharge Medication List Pantoprazole [Protonix] 40 mg PO DAILY #30 tab 10/25/24 [Rx] Acetaminophen Tab [Tylenol] 650 mg PO Q6HR PRN tab 11/14/24 [Rx] HYDROcodone/APAP 5-325MG [[place] 5-325] 1 each PO Q6HR PRN #6 tab 11/14/24 [Rx] Nicotine 21Mg/24Hr Patch [Habitrol] 1 patch TRANSDERM DAILY patch 11/14/24 [Rx] Follow up Appointment(s)/Referral(s): Luly Byrnes MD [STAFF PHYSICIAN] - 1 Week Deja Cool MD [STAFF PHYSICIAN] - 1 Week Nancy Ingram MD [STAFF PHYSICIAN] - 1 Week Patient Instructions/Handouts: Acute Nausea and Vomiting (ED), Acute Nausea and Vomiting (DC), Acute Abdominal Pain (ED), Acute Abdominal Pain (DC) Activity/Diet/Wound Care/Special Instructions: Activity limited until follow-up Follow-up with GI outpatient Follow-up with general surgery outpatient Continue on Protonix daily Continue with low fiber diet and slowly advance as tolerated Discharge Disposition: HOME SELF-CARE
== END 2024-11-14 16:27 | disposition home or self-care (01) ==
LOC: EC 10:56 → 6NMEDSUR 15:14
PROVIDERS: ADMIT Internal Medicine; ATTEND Internal Medicine
DX: R10.13 Epigastric pain (principal); R11.2 Nausea with vomiting, unspecified; F41.9 Anxiety disorder, unspecified; F19.10 Other psychoactive substance abuse, uncomplicated; F17.210 Nicotine dependence, cigarettes, uncomplicated; E44.0 Moderate protein-calorie malnutrition; Z68.1 Body mass index [BMI] 19.9 or less, adult; Z90.49 Acquired absence of other specified parts of digestive tract; Z79.899 Other long term (current) drug therapy
CPT/HCPCS: 96376; 96375 ×2; 96361; 96374 ×2; 99285; 36415; 93005; 80053 ×2; 82150 ×2; 83690 ×2; 84484; 85025 ×2; 85610; 85730; 74176; G0378 ×2; S4990 ×2; J2270 ×2; J2765; J2405 ×2; J1171; J2470 ×2

== ENCOUNTER 2025-01-06 15:56 | Emergency (ER) | payer MEDICARE, OTHER ==
[2025-01-06 16:17] VITALS: BP 121/82; PULSE 77; RESP 20; TEMP 97.5
--- NOTE | 2025-01-06 16:35 | ED ---
General Adult HPI - General Chief complaint: Abdominal Pain Stated complaint: abd pain, NV Time Seen by Provider: 01/06/25 16:10 Source: patient, RN notes reviewed Mode of arrival: wheelchair Limitations: no limitations - History of Present Illness Initial comments: Quick [id number] male presenting to the emergency department for complaints of nausea, vomiting, epigastric abdominal pain over the past 4 days. States that he has been having intractable nausea and vomiting over the past 12 hours. He believes that his pancreas is flared up again. 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 Is a ttempting to move to [facility]. - Related Data Previous Rx's Medication Instructions Recorded Pantoprazole [Protonix] 40 mg PO DAILY #30 tab 10/25/24 Acetaminophen Tab [Tylenol] 650 mg PO Q6HR PRN tab 11/14/24 HYDROcodone/APAP 5-325MG [[place] 1 each PO Q6HR PRN #6 tab 11/14/24 5-325] Nicotine 21Mg/24Hr Patch [Habitrol] 1 patch TRANSDERM DAILY patch 11/14/24 Allergies Allergy/AdvReac Type Severity Reaction Status Date / Time No Known Allergies Allergy Verified 01/06/25 16:17 Review of Systems ROS Statement: Those systems with pertinent positive or pertinent negative responses have been documented in the HPI. ROS Other: All systems not noted in ROS Statement are negative. Past Medical History Past Medical History: Renal Disease Additional Past Medical History / Comment(s): Diagnosed with "twisted bowel" in 2011, bowel resection 07/19/2012, history of acute renal failure related to dehydration, pancreatitis History of Any Multi-Drug Resistant Organisms: None Reported Past Surgical History: Bowel Resection, Hernia Repair Additional Past Surgical History / Comment(s): Volvulus, Last eye surgery 09/21/2017 lens repair, 12/2016 retinal reattachment surgery. Past Anesthesia/Blood Transfusion Reactions: No Reported Reaction Past Psychological History: Anxiety Smoking Status: Current every day smoker Past Alcohol Use History: Rare Past Drug Use History: Marijuana - Past Family History Father Family Medical History: CVA/TIA Additional Family Medical History / Comment(s): Patient's father at the age of 8080 years old from "organ failure." Mother Family Medical History: Diabetes Mellitus, Hypertension Additional Family Medical History / Comment(s): Patient's mother passedy away "of old age" per patient. General Exam - General Exam Comments Initial Comments: Visual Physical Exam Vital signs reviewed General: Well-appearing, nontoxic, no acute distress. Head: Normocephalic, atraumatic Eyes: PERRLA, EOMI ENT: Airway patent Chest: Nonlabored breathing Skin: No visual rash, normal skin tone Neuro: Alert and oriented 3 Musculoskeletal: No gross abnormalities Limitations: no limitations Course Vital Signs 01/06/25 16:15 Temperature 97.5 F L Pulse Rate 77 Respiratory 20 Rate Blood Pressure 121/82 O2 Sat by Pulse 98 Oximetry Medical Decision Making - Medical Decision Making I completed the quick note portion of this chart signed Vicky Granados PA-C Comprehensive medical decision making unable to be determined due to patient leaving AGAINST MEDICAL ADVICE - Lab Data Result diagrams: 01/06/25 17:04 01/06/25 17:04 Lab Results 01/06/25 01/06/25 01/06/25 Range/Units 17:04 17:04 17:04 WBC 7.71 (4.50-10.00) 10*3/uL RBC 5.13 (4.40-5.60) 10*6/uL Hgb 16.3 D (13.0-17.0) g/dL Hct 45.8 (39.6-50.0) % MCV 89.3 D (80.0-97.0) fL MCH 31.8 (27.0-32.0) pg MCHC 35.6 (32.0-37.0) g/dL Plt Count 208 (140-440) 10*3/uL MPV 10.2 (9.5-12.2) fL Immature Gran % (Auto) 0.3 % Neutrophils % 62.5 % Lymphocytes % 27.5 % Monocytes % 6.9 % Eosinophils % 2.2 % Basophils % 0.6 % Immature Gran # 0.02 (0.00-0.04) 10*3/uL Neutrophils # 4.82 (1.80-7.70) 10*3/uL Lymphocytes # 2.12 (0.90-5.00) 10*3/uL Monocytes # 0.53 (0.20-1.00) 10*3/uL Eosinophils # 0.17 (0.04-0.35) 10*3/uL Basophils # 0.05 (0.00-0.10) 10*3/uL Sodium 141 (137-145) mmol/L Potassium 4.2 (3.5-5.1) mmol/L Chloride 106 (98-107) mmol/L Carbon Dioxide 22 (22-30) mmol/L Anion Gap 13 mmol/L BUN 18 (9-20) mg/dL Creatinine 0.93 (0.66-1.25) mg/dL Est GFR (CKD-EPI)AfAm >90 (>60 ml/min/1.73 sqM) Est GFR (CKD-EPI)NonAf 89 (>60 ml/min/1.73 sqM) Glucose 111 H (74-99) mg/dL Calcium 9.9 (8.4-10.2) mg/dL Total Bilirubin 0.8 (0.2-1.3) mg/dL AST 26 (17-59) U/L ALT 17 (4-49) U/L Alkaline Phosphatase 65 (38-126) U/L Troponin I <0.012 (0.000-0.034) ng/mL Total Protein 8.0 (6.3-8.2) g/dL Albumin 5.0 (3.5-5.0) g/dL Amylase 56 (30-110) U/L Lipase 48 (23-300) U/L Disposition Clinical Impression: Left against medical advice Disposition: LEFT AGAINST MEDICAL ADVICE Condition: Undetermined Is patient prescribed a controlled substance at d/c from ED?: No Referrals: None,Stated [Primary Care Provider] - 1-2 days
[2025-01-06 17:15] LABS: Basophils # (A) 0.05 10*3/uL (0.00-0.10); Basophils % (A) 0.6 %; Eosinophils # (A) 0.17 10*3/uL (0.04-0.35); Eosinophils % (A) 2.2 %; HCT 45.8 % (39.6-50.0); Lymphocytes # (A) 2.12 10*3/uL (0.90-5.00); Lymphocytes % (A) 27.5 %; MCH 31.8 pg (27.0-32.0); MCHC 35.6 g/dL (32.0-37.0); Mean Platelet Volume 10.2 fL (9.5-12.2); Monocytes # (A) 0.53 10*3/uL (0.20-1.00); Monocytes % (A) 6.9 %; Neutrophils # (A) 4.82 10*3/uL (1.80-7.70); Neutrophils % (A) 62.5 %; Platelet Count 208 10*3/uL (140-440); RBC 5.13 10*6/uL (4.40-5.60); RDW 12.2 % (11.5-14.5); WBC 7.71 10*3/uL (4.50-10.00)
[2025-01-06 17:28] LABS: ALT 17 U/L (4-49); African American GFR (CKD) >90 (>60 ml/min/1.73 sqM); Amylase 56 U/L (30-110); Anion Gap 13 mmol/L; Blood Urea Nitrogen 18 mg/dL (9-20); Calcium 9.9 mg/dL (8.4-10.2); Carbon Dioxide 22 mmol/L (22-30); Chloride 106 mmol/L (98-107); Glucose 111 mg/dL (74-99); Lipase 48 U/L (23-300); Non-African American GFR(CKD) 89 (>60 ml/min/1.73 sqM); Sodium 141 mmol/L (137-145); Total Bilirubin 0.8 mg/dL (0.2-1.3)
[2025-01-06 17:33] LABS: HGB 16.3 g/dL (13.0-17.0); MCV 89.3 fL (80.0-97.0)
[2025-01-06 17:34] LABS: Potassium 4.2 mmol/L (3.5-5.1)
[2025-01-06 17:35] LABS: AST 26 U/L (17-59); Alkaline Phosphatase 65 U/L (38-126)
--- NOTE | 2025-01-06 19:09 | CT ---
EXAMINATION TYPE: CT abdomen pelvis w con DATE OF EXAM: 01/06/2025 6:12 PM COMPARISON: 11/13/2024 CLINICAL INDICATION: Male, 59 years old with history of epigastric ab pain, N/V, epigastric pain, [place], vomiting TECHNIQUE: Axial images were obtained from above the diaphragm to the pubic rami in the axial plane a t 5 mm thick sections. Reconstructed images are reviewed on the computer in the coronal plane. CONTRAST: 100 mL of Isovue 300. Study performed without Oral Contrast DLP: 413.9 mGycm, Automated exposure control for dose reduction was used. FINDINGS: Limited CT sections are obtained the lung bases. The lung bases are clear. CT ABDOMEN: Liver: Normal Spleen: Normal Pancreas: There is thickening of the body of the pancreas. There appears to be a hypodense central co llection measuring 2.0 x 1.4 cm not present previously. In the coronal plane this measures 2.0 x 2.9 cm. Series 302 image 29. Pseudocyst formation, abscess, neoplasm are within the differential. Additio nal workup recommended. Distal tail of the pancreas appears normal. Body and tail junction is somewha t thickened likely with a prominent duct estimated at 0.6 cm, normal less than 1.5 cm may be a dilate d duct leading towards the hypodense collection within the body of the pancreas. Report was called to the emergency room by Dr. Renee by telephone at the time of interpretation. Adrenal glands: The adrenal glands are normal. Gallbladder: Normal Kidneys: No masses are evident. No hydronephrosis is present. There is a 1.6 cm cyst superior pole left kidney Delayed images were obtained through the kidneys, which remain unremarkable. Aorta: Vascular calcification is within the aorta. Inferior vena cava: Normal. CT PELVIS: Loops of bowel within the abdomen and pelvis are normal. The study and lateral contrast limiting bowel evaluation Appendix: Not identified. No dilated tubular structure or inflammatory change evident Urinary bladder: Distended. In the posterior left urinary bladder there appear to be slightly hyperde nse nodules measuring 1.2 x 0.8 cm. This could be extrinsic to the urinary bladder and volume averagi ng. This area was not identified previously. Genitourinary structures: Prostate appears normal Osseous structures: No suspicious lytic or sclerotic lesions. IMPRESSION: 1. Hypodense area within the thickened body of the pancreas is an interval change from comparison. A cute pancreatitis with pseudocyst formation or abscess formation should be considered. Neoplastic pro cess is not excluded. Additional workup recommended. 2. Couple of nodular type densities may be within the posterior left urinary bladder. This is an inte rval change. Follow-up recommended [facility], , 01/06/2025 7:07 PM
== END 2025-01-06 20:26 | disposition left against medical advice (07) ==
LOC: EC 15:56
DX: R10.13 Epigastric pain (principal); F17.200 Nicotine dependence, unspecified, uncomplicated; Z53.29 Procedure and treatment not carried out because of patient's decision for other reasons
CPT/HCPCS: 36415; 93005; 80053; 82150; 83690; 84484; 85025; 74177; 99284; Q9967